=== PATIENT | female | born 1935 | race Caucasian/White ===

== ENCOUNTER → 2016-05-23 | Outpatient (CLI) | payer MEDICARE, BC ==
[2016-05-23 11:06] LABS: Anion Gap 12 mmol/L; Basophils # (A) 0.1 k/uL (0-0.2); Basophils % (A) 1 %; Blood Urea Nitrogen 23 mg/dL (7-17); C Reactive Protein <5.0 mg/L (<10.0); CH 31.7; CHCM 31.9; Calcium 9.8 mg/dL (8.4-10.2); Carbon Dioxide 28 mmol/L (22-30); Chloride 102 mmol/L (98-107); Eosinophils # (A) 0.1 k/uL (0-0.7); Eosinophils % (A) 2 %; Glucose 76 mg/dL (74-99); HCT 43.1 % (34.0-46.0); HGB 13.7 gm/dL (11.4-16.0); Luc # (Auto) 0.21; Luc % (Auto) 4; Lymphocytes # (A) 1.8 k/uL (1.0-4.8); Lymphocytes % (A) 32 %; MCH 31.6 pg (25.0-35.0); MCHC 31.7 g/dL (31.0-37.0); MCV 99.7 fL (80.0-100.0); Mean Platelet Volume 6.2; Monocytes # (A) 0.4 k/uL (0-1.0); Monocytes % (A) 8 %; Neutrophils # (A) 3.1 k/uL (1.3-7.7); Neutrophils % (A) 53 %; Non-African American GFR(MDRD) 33 (>60 ml/min/1.73 sqM); Potassium 4.2 mmol/L (3.5-5.1); RBC 4.32 m/uL (3.80-5.40); RDW 12.6 % (11.5-15.5); Sodium 142 mmol/L (137-145); WBC 5.7 k/uL (3.8-10.6); WBC (Perox) 5.43
[2016-05-23 14:24] LABS: Erythrocyte Sedimentation Rate 13 mm/hr (0-20)
== END ==
LOC: LABWHC1 10:16
PROVIDERS: ATTEND Internal Medicine Infectious Disease
DX: T84.54XA Infection and inflammatory reaction due to internal left knee prosthesis, initial encounter (principal)
CPT/HCPCS: 36415; 80048; 85025; 85652; 86140

== ENCOUNTER → 2016-06-18 | Outpatient (CLI) | payer MEDICARE, BC ==
[2016-06-18 16:29] LABS: Appearance,Urine Clear (Clear); Bilirubin,Urine Negative (Negative); Glucose,Urine (UA) Negative (Negative); Ketones,Urine Negative (Negative); Leukocyte Esterase,Urine Large (Negative); Nitrite,Urine Negative (Negative); PH, Urine 6.5 (5.0-8.0); Particle Count 3302; Protein,Urine Negative (Negative); RBC,Urine 1 /hpf (0-5); Specific Gravity,Urine 1.007 (1.001-1.035); Squamous Epithelial Cell,Urine <1 /hpf (0-4); UA Billing (MACRO vs. MICRO) MICRO; Urobilinogen,Urine <2.0 mg/dL (<2.0); WBC,Urine 26 /hpf (0-5)
[2016-06-18 16:31] LABS: Creatinine,Urine Random 54.1 mg/dL
[2016-06-18 16:39] LABS: CHCM 33.1; HCT 41.3 % (34.0-46.0); HDW 2.33; HGB 13.6 gm/dL (11.4-16.0); MCHC 32.9 g/dL (31.0-37.0); MCV 97.2 fL (80.0-100.0); Mean Platelet Volume 6.3; RBC 4.25 m/uL (3.80-5.40); RDW 12.5 % (11.5-15.5); WBC 5.7 k/uL (3.8-10.6)
== END | disposition home or self-care (01) ==
LOC: LABWHC1 15:39
PROVIDERS: ATTEND Nurse Practitioner Family
DX: N18.3 Chronic kidney disease, stage 3 (moderate) (principal); N39.0 Urinary tract infection, site not specified; R80.9 Proteinuria, unspecified; D64.9 Anemia, unspecified
CPT/HCPCS: 36415; 80048; 81001; 82570; 82728; 83540; 83550; 84156; 85027; 87086

== ENCOUNTER → 2016-07-03 | Outpatient (CLI) | payer MEDICARE, BC ==
[2016-07-03 16:22] LABS: Calcium 9.6 mg/dL (8.4-10.2); Potassium 3.9 mmol/L (3.5-5.1)
== END | disposition home or self-care (01) ==
LOC: LABWHC1 15:35
PROVIDERS: ATTEND Internal Medicine Nephrology
DX: N18.3 Chronic kidney disease, stage 3 (moderate) (principal); E55.9 Vitamin D deficiency, unspecified; E21.3 Hyperparathyroidism, unspecified
CPT/HCPCS: 36415; 80048; 82306; 83970

== ENCOUNTER → 2016-07-20 | Outpatient (CLI) | payer MEDICARE, BC ==
--- NOTE | 2016-07-20 13:23 | US ---
EXAMINATION TYPE: US kidneys/renal and bladder DATE OF EXAM: 07/20/2016 COMPARISON: NONE CLINICAL HISTORY: N18.3 CKD. EXAM MEASUREMENTS: Right Kidney: 9.1 x 4.6 x 4.5 cm Left Kidney: 9.1 x 4.7 x 4.2 cm The kidneys are poorly visualized. Right Kidney: mid parapelvic cyst measuring 1.2 x 1.6 x 1.0 cm, cortical thinning Left Kidney: cyst measuring 1.9 x 1.6 x 1.7, cortical thinning Bladder: situated low difficult to visualize, portions visualized appear wnl The kidneys are poorly visualized. There is no evidence of hydronephrosis. There is a parapelvic cyst on the right. There is a simple appearing cortical cyst on the left. IMPRESSION: Limited examination demonstrating findings as described above.
== END ==
LOC: RADUSWWP 12:40
PROVIDERS: ATTEND Internal Medicine Nephrology
DX: N28.1 Cyst of kidney, acquired (principal); N18.3 Chronic kidney disease, stage 3 (moderate)
CPT/HCPCS: 76770

== ENCOUNTER → 2016-08-13 | Outpatient (CLI) | payer MEDICARE, BC ==
[2016-08-13 14:35] LABS: Basophils % (A) 1 %; CH 30.9; CHCM 32.1; Eosinophils # (A) 0.1 k/uL (0-0.7); Eosinophils % (A) 2 %; HCT 40.1 % (34.0-46.0); HDW 2.15; HGB 13.5 gm/dL (11.4-16.0); Luc # (Auto) 0.21; Luc % (Auto) 4; Lymphocytes # (A) 1.7 k/uL (1.0-4.8); Lymphocytes % (A) 32 %; MCH 32.5 pg (25.0-35.0); MCHC 33.6 g/dL (31.0-37.0); MCV 96.7 fL (80.0-100.0); Mean Platelet Volume 6.6; Monocytes # (A) 0.3 k/uL (0-1.0); Monocytes % (A) 6 %; Neutrophils % (A) 56 %; RBC 4.15 m/uL (3.80-5.40); RDW 12.9 % (11.5-15.5); WBC 5.3 k/uL (3.8-10.6); WBC (Perox) 5.85
[2016-08-13 15:02] LABS: Calcium 9.8 mg/dL (8.4-10.2); Magnesium 2.2 mg/dL (1.6-2.3); Phosphorous 4.3 mg/dL (2.5-4.5); Potassium 4.6 mmol/L (3.5-5.1); Uric Acid 6.9 mg/dL (3.7-7.4)
[2016-08-13 15:42] LABS: Appearance,Urine Turbid (Clear); Bacteria,Urine Moderate /hpf; Bilirubin,Urine Negative (Negative); Glucose,Urine (UA) Negative (Negative); Ketones,Urine Negative (Negative); Leukocyte Esterase,Urine Large (Negative); Nitrite,Urine Negative (Negative); PH, Urine 6.5 (5.0-8.0); Particle Count 2882; Protein,Urine Trace (Negative); RBC,Urine 6 /hpf (0-5); Specific Gravity,Urine 1.016 (1.001-1.035); UA Billing (MACRO vs. MICRO) MICRO; Urobilinogen,Urine <2.0 mg/dL (<2.0); WBC,Urine >182 /hpf (0-5)
[2016-08-14 09:14] LABS: Total Bilirubin 0.6 mg/dL (0.2-1.3); Total Protein 6.9 g/dL (6.3-8.2)
[2016-08-14 10:01] LABS: Hemoglobin A1C 5.7 % (4.2-6.1)
[2016-08-14 16:45] LABS: Urine Creatinine 139.6 mg/dL
== END | disposition home or self-care (01) ==
LOC: LABWHC1 14:07
PROVIDERS: ATTEND Internal Medicine Nephrology
DX: N18.3 Chronic kidney disease, stage 3 (moderate) (principal); E11.9 Type 2 diabetes mellitus without complications; E78.5 Hyperlipidemia, unspecified
CPT/HCPCS: 36415; 80048; 80053; 80061; 81001; 82043; 82306; 82570; 82728; 83036; 83540; 83550; 83735; 83970; 84100; 84443; 84550; 85025

== ENCOUNTER 2016-09-12 11:27 | Emergency (ER) | payer MEDICARE, BC ==
[2016-09-12 11:49] VITALS: RESP 18
--- NOTE | 2016-09-12 12:39 | ED ---
General Adult HPI - General Chief complaint: Head Injury Stated complaint: headache following fall Time Seen by Provider: 09/12/16 12:32 Source: patient, RN notes reviewed Mode of arrival: ambulatory Limitations: no limitations - History of Present Illness Initial comments: 81-year-old female presents to the emergency department with a chief complaint of headache. Patient states that on Saturday she lost her balance after tripping over her hand bag and she hit her head on a cement. Patient states that at that time she had no pain or symptoms and she did not go in EMS to the hospital. Patient states she follow-up with her doctor was found have a broken right wrist. Patient states she continues to have these headaches a little bit of neck pain so she was concerned so she thought that she should be seen. Patient does state that she takes aspirin every day but denies any use of blood thinners. Patient denies any nausea vomiting fever or chills. Patient states she has been acting normally. Patient states she does not make sure everything was okay with her head she came in to be evaluated. Patient denies any recent fever, chills, shortness of breath, chest pain, back pain, abdominal pain, nausea vomiting, numbness or tingling, dysuria or hematuria, constipation or diarrhea, visual changes, or any other current symptoms. - Related Data Allergies Allergy/AdvReac Type Severity Reaction Status Date / Time ciprofloxacin [From Cipro] Allergy Rash/Hives Verified 09/12/16 11:50 nitrofurantoin Allergy Unknown Verified 09/12/16 11:50 Penicillins Allergy Rash/Hives Verified 09/12/16 11:50 latex AdvReac Rash/Hives Verified 09/12/16 11:50 Review of Systems ROS Statement: Those systems with pertinent positive or pertinent negative responses have been documented in the HPI. ROS Other: All systems not noted in ROS Statement are negative. Past Medical History Past Medical History: Diabetes Mellitus, GERD/Reflux History of Any Multi-Drug Resistant Organisms: Other MDRO Date of last positivie culture/infection: 2016 MDRO Source:: e-coli in knee Past Surgical History: Appendectomy, Back Surgery, Cholecystectomy, Hysterectomy Additional Past Surgical History / Comment(s): bilateral shoulder, bilateral carpal tunnel, knee replaced Smoking Status: Never smoker Past Alcohol Use History: None Reported Past Drug Use History: None Reported General Exam - General Exam Comments Initial Comments: General: The patient is awake and alert, in no distress, and does not appear acutely ill. Eye: Pupils are equal, round and reactive to light, extra-ocular movements are intact; there is normal conjunctiva bilaterally. No signs of icterus. Ears, nose, mouth and throat: There are moist mucous membranes and no oral lesions. Neck: The neck is supple, there is no tenderness. Cardiovascular: There is a regular rate and rhythm. No murmur, rub or gallop is appreciated. Respiratory: Lungs are clear to auscultation, respirations are non-labored, breath sounds are equal. No wheezes, stridor, rales, or rhonchi. Back: There is no tenderness to palpation in the midline. There is no obvious deformity. No rashes noted. Musculoskeletal: Right wrist is in a splint. Normal ROM, no tenderness, There is no pedal edema. There is no calf tenderness or swelling. Sensation intact. Pulses equal bilaterally 2+. Neurological: CN II-XII intact, There are no obvious motor or sensory deficits. Coordination appears grossly intact. Speech is normal. Skin: Skin is warm and dry and no rashes or lesions are noted. Psychiatric: Cooperative, appropriate mood & affect, normal judgment. Limitations: no limitations Course Vital Signs 09/12/16 11:42 Temperature 97.1 F L Pulse Rate 77 Respiratory 18 Rate Blood Pressure 144/65 O2 Sat by Pulse 97 Oximetry Medical Decision Making - Medical Decision Making 81-year-old female presents emergency room chief complaint of headache after fall. This time CT is reviewed and negative. We discussed the patient most likely having post concussion-like symptoms. We did discuss care of this we discussed follow-up with discussed return parameters all patient's questions. She stated that she understood and she is in agreement with this plan. This time she will be discharged home. - Radiology Data Radiology results: report reviewed, image reviewed Disposition Clinical Impression: Concussion without loss of consciousness Disposition: HOME SELF-CARE Condition: Stable Instructions: Concussion (ED) Additional Instructions: Please use medication as discussed. Please follow up with family doctor if symptoms have not improved over the next two days. Please return to the emergency room if your symptoms increase or worsen or for any other concerns. Referrals: Lilian Starks MD [Primary Care Provider] - 1-2 days Time of Disposition: 13:12
--- NOTE | 2016-09-12 13:05 | CT ---
EXAMINATION TYPE: CT brain vladimir faustin DATE OF EXAM: 09/12/2016 COMPARISON: NONE HISTORY: Patient complains of right side posterior headache and right side neck pain since fall. CT DLP: 1507 mGycm Automated exposure control for dose reduction was used. TECHNIQUE: CT scan of the head and cervical spine are performed without contrast. FINDINGS: BRAIN: There are generalized changes of sulcal prominence and ventriculomegaly, compatible with atrop hic change. There is diffuse periventricular white matter lucency, compatible with small vessel ische yary change. There is no focal lesion, mass effect or midline shift identified. I do not see evidence of intracranial blood. Visualized portions of the paranasal sinuses and mastoids are clear. No depressed skull fracture is s een. IMPRESSION: 1. NO ACUTE INTRACRANIAL ABNORMALITY. 2. ATROPHIC CHANGE. 3. CHRONIC WHITE MATTER ISCHEMIC CHANGE. CERVICAL SPINE: There are emphysematous changes throughout the visualized lungs. Prevertebral soft tissues are normal. There is a mild reversal of normal cervical lordosis. Alignment is normal. Atlantoaxial relationships are normal. There is disc space loss and hypertrophic spondylosis at C4-5, C5-6 and C6-7. There is u ncovertebral joint disease at these levels. There is mild, bilateral facet arthropathy at C3-4 and on the right at C4-5. No discal protrusion is seen. No fracture is identified. IMPRESSION: 1. NO ACUTE OSSEOUS LESION. 2. DEGENERATIVE CHANGE. 3. EMPHYSEMATOUS CHANGE WITHIN THE LUNGS.
[2016-09-12 13:21] VITALS: BP 125/65; PULSE 73; TEMP 98.7
== END 2016-09-12 13:21 | disposition home or self-care (01) ==
LOC: EC 11:27
DX: S06.0X0A Concussion without loss of consciousness, initial encounter (principal); Z88.0 Allergy status to penicillin; Z88.1 Allergy status to other antibiotic agents; Z88.8 Allergy status to other drugs, medicaments and biological substances; Z91.040 Latex allergy status; W01.198A Fall on same level from slipping, tripping and stumbling with subsequent striking against other object, initial encounter
CPT/HCPCS: 70450; 72125; 99283

== ENCOUNTER → 2016-11-29 | Outpatient (CLI) | payer MEDICARE, BC ==
[2016-11-29 15:11] LABS: Basophils % (A) 1 %; CH 33.2; CHCM 32.5; Eosinophils # (A) 0.1 k/uL (0-0.7); Eosinophils % (A) 1 %; HCT 43.6 % (34.0-46.0); HDW 2.17; HGB 13.8 gm/dL (11.4-16.0); Luc # (Auto) 0.12; Luc % (Auto) 3; Lymphocytes # (A) 1.2 k/uL (1.0-4.8); Lymphocytes % (A) 28 %; MCH 32.4 pg (25.0-35.0); MCHC 31.6 g/dL (31.0-37.0); MCV 102.7 fL (80.0-100.0); Macrocytosis Slight; Mean Platelet Volume 7.1; Monocytes # (A) 0.3 k/uL (0-1.0); Monocytes % (A) 8 %; Neutrophils # (A) 2.5 k/uL (1.3-7.7); Neutrophils % (A) 60 %; RBC 4.25 m/uL (3.80-5.40); RDW 14.5 % (11.5-15.5); WBC 4.3 k/uL (3.8-10.6); WBC (Perox) 3.81
[2016-11-29 16:29] LABS: Erythrocyte Sedimentation Rate 9 mm/hr (0-20)
== END | disposition home or self-care (01) ==
LOC: LABWHC1 14:44
PROVIDERS: ATTEND Internal Medicine Infectious Disease
DX: T84.54XD Infection and inflammatory reaction due to internal left knee prosthesis, subsequent encounter (principal)
CPT/HCPCS: 36415; 85025; 85652; 86140

== ENCOUNTER 2016-11-30 23:31 | Emergency (ER) | payer MEDICARE, BC ==
[2016-11-30 23:43] VITALS: TEMP 98.5
[2016-12-01] MEDS ORDERED: SODIUM CHLORIDE 0.9% 1,000 ML IV STA (00:04)
[2016-12-01] MEDS ORDERED: IPRATROPIUM-ALBUTEROL 3 ML NEB INHALATION STA (00:04)
[2016-12-01 00:17] LABS: Basophils % (A) 1 %; CHCM 33.3; Eosinophils # (A) 0.1 k/uL (0-0.7); Eosinophils % (A) 3 %; HCT 44.7 % (34.0-46.0); HDW 2.24; HGB 14.2 gm/dL (11.4-16.0); Luc # (Auto) 0.13; Luc % (Auto) 3; Lymphocytes # (A) 1.4 k/uL (1.0-4.8); Lymphocytes % (A) 28 %; MCH 32.6 pg (25.0-35.0); MCHC 31.8 g/dL (31.0-37.0); MCV 102.5 fL (80.0-100.0); Macrocytosis Slight; Mean Platelet Volume 6.8; Monocytes # (A) 0.4 k/uL (0-1.0); Monocytes % (A) 8 %; Neutrophils # (A) 2.9 k/uL (1.3-7.7); Neutrophils % (A) 58 %; RBC 4.37 m/uL (3.80-5.40); RDW 14.8 % (11.5-15.5); WBC (Perox) 4.65
[2016-12-01 00:24] LABS: Calcium 9.3 mg/dL (8.4-10.2); Potassium 4.3 mmol/L (3.5-5.1); Total Bilirubin 0.3 mg/dL (0.2-1.3); Total Protein 6.7 g/dL (6.3-8.2)
--- NOTE | 2016-12-01 00:24 | ED ---
General Adult HPI - General Chief complaint: Upper Respiratory Infection Stated complaint: cough Time Seen by Provider: 12/01/16 00:03 Source: patient, RN notes reviewed, old records reviewed Mode of arrival: ambulatory Limitations: no limitations - History of Present Illness Initial comments: This is a 81 female to the ED co cough and SOB. Symptoms times 3 days with worsening of symptoms. Patient has ho diabetes and multiple surgeries. Patient has no fever. No chest pain, no travel history and no recent hospitilizations. - Related Data Previous Rx's Medication Instructions Recorded Albuterol Sulfate [Proair Hfa] 1 - 2 puff INHALATION Q4H PRN #1 12/01/16 inhaler Azithromycin [Zithromax Z-pack] 0 mg PO DIRECTED #1 pack 12/01/16 Benzonatate [Tessalon Perles] 100 mg PO TID PRN #30 capsule 12/01/16 Allergies Allergy/AdvReac Type Severity Reaction Status Date / Time ciprofloxacin [From Cipro] Allergy Rash/Hives Verified 11/30/16 23:43 nitrofurantoin Allergy Unknown Verified 11/30/16 23:43 Penicillins Allergy Rash/Hives Verified 11/30/16 23:43 latex AdvReac Rash/Hives Verified 11/30/16 23:43 Review of Systems ROS Statement: Those systems with pertinent positive or pertinent negative responses have been documented in the HPI. ROS Other: All systems not noted in ROS Statement are negative. Past Medical History Past Medical History: Diabetes Mellitus, GERD/Reflux History of Any Multi-Drug Resistant Organisms: Other MDRO Date of last positivie culture/infection: 2016 MDRO Source:: e-coli in knee Past Surgical History: Appendectomy, Back Surgery, Cholecystectomy, Hysterectomy Additional Past Surgical History / Comment(s): bilateral shoulder, bilateral carpal tunnel, knee replaced Past Psychological History: No Psychological Hx Reported Smoking Status: Never smoker Past Alcohol Use History: None Reported Past Drug Use History: None Reported General Exam Limitations: no limitations General appearance: alert, in no apparent distress Head exam: Present: atraumatic, normocephalic, normal inspection Eye exam: Present: normal appearance, PERRL, EOMI. Absent: scleral icterus, conjunctival injection, periorbital swelling ENT exam: Present: normal exam, mucous membranes moist Neck exam: Present: normal inspection. Absent: tenderness, meningismus, lymphadenopathy Respiratory exam: Present: normal lung sounds bilaterally. Absent: respiratory distress, wheezes, rales, rhonchi, stridor Cardiovascular Exam: Present: regular rate, normal rhythm, normal heart sounds. Absent: systolic murmur, diastolic murmur, rubs, gallop, clicks GI/Abdominal exam: Present: soft, normal bowel sounds. Absent: distended, tenderness, guarding, rebound, rigid Extremities exam: Present: normal inspection, full ROM, normal capillary refill. Absent: tenderness, pedal edema, joint swelling, calf tenderness Back exam: Present: normal inspection Neurological exam: Present: alert, oriented X3, CN II-XII intact Psychiatric exam: Present: normal affect, normal mood Skin exam: Present: warm, dry, intact, normal color. Absent: rash Course Vital Signs 11/30/16 12/01/16 12/01/16 23:41 00:12 00:47 Temperature 98.5 F Pulse Rate 78 66 Respiratory 20 18 18 Rate Blood Pressure 136/66 119/58 O2 Sat by Pulse 97 96 Oximetry 12/01/16 12/01/16 12/01/16 01:01 01:19 02:12 Temperature Pulse Rate 65 66 Respiratory 20 Rate Blood Pressure O2 Sat by Pulse Oximetry - Reevaluation(s) Reevaluation #1: 12/01/16 00:32 patient breathing is improved, still w cough Reevaluation #2: 12/01/16 01:57 patient asking to be discharged home EKG Findings - EKG Comments: EKG Findings:: EKG shows NSR 67 NV 154 QRS 136 QTc 433 Medical Decision Making - Medical Decision Making 81 female in the ER for evaluation of shortness of cough or congestion, symptoms of upper respiratory infection. Patient at this point she feels better and would like to be discharged home, refusing to stay in the hospital. X-rays negative for pneumonia. - Lab Data Result diagrams: 12/01/16 00:00 12/01/16 00:00 Lab Results 12/01/16 12/01/16 12/01/16 Range/Units 00:00 00:00 00:00 WBC 5.0 (3.8-10.6) k/uL RBC 4.37 (3.80-5.40) m/uL Hgb 14.2 (11.4-16.0) gm/dL Hct 44.7 (34.0-46.0) % MCV 102.5 H (80.0-100.0) fL MCH 32.6 (25.0-35.0) pg MCHC 31.8 (31.0-37.0) g/dL RDW 14.8 (11.5-15.5) % Plt Count 183 (150-450) k/uL Neutrophils % 58 % Lymphocytes % 28 % Monocytes % 8 % Eosinophils % 3 % Basophils % 1 % Neutrophils # 2.9 (1.3-7.7) k/uL Lymphocytes # 1.4 (1.0-4.8) k/uL Monocytes # 0.4 (0-1.0) k/uL Eosinophils # 0.1 (0-0.7) k/uL Basophils # 0.0 (0-0.2) k/uL Macrocytosis Slight PT (9.0-12.0) sec INR (<1.2) APTT (22.0-30.0) sec D-Dimer (<0.60) mg/L FEU Sodium 137 (137-145) mmol/L Potassium 4.3 (3.5-5.1) mmol/L Chloride 104 (98-107) mmol/L Carbon Dioxide 22 (22-30) mmol/L Anion Gap 11 mmol/L BUN 20 H (7-17) mg/dL Creatinine 1.30 H (0.52-1.04) mg/dL Est GFR (MDRD) Af Amer 48 (>60 ml/min/1.73 sqM) Est GFR (MDRD) Non-Af 40 (>60 ml/min/1.73 sqM) Glucose 89 (74-99) mg/dL Calcium 9.3 (8.4-10.2) mg/dL Magnesium 2.0 (1.6-2.3) mg/dL Total Bilirubin 0.3 (0.2-1.3) mg/dL AST 27 (14-36) U/L ALT 45 (9-52) U/L Alkaline Phosphatase 78 (38-126) U/L Total Creatine Kinase 37 (30-135) U/L CK-MB (CK-2) 0.4 (0.0-2.4) ng/mL CK-MB (CK-2) Rel Index 1.1 Troponin I <0.012 (0.000-0.034) ng/mL NT-Pro-B Natriuret Pep pg/mL Total Protein 6.7 (6.3-8.2) g/dL Albumin 4.0 (3.5-5.0) g/dL 12/01/16 12/01/16 12/01/16 Range/Units 00:00 00:00 00:00 WBC (3.8-10.6) k/uL RBC (3.80-5.40) m/uL Hgb (11.4-16.0) gm/dL Hct (34.0-46.0) % MCV (80.0-100.0) fL MCH (25.0-35.0) pg MCHC (31.0-37.0) g/dL RDW (11.5-15.5) % Plt Count (150-450) k/uL Neutrophils % % Lymphocytes % % Monocytes % % Eosinophils % % Basophils % % Neutrophils # (1.3-7.7) k/uL Lymphocytes # (1.0-4.8) k/uL Monocytes # (0-1.0) k/uL Eosinophils # (0-0.7) k/uL Basophils # (0-0.2) k/uL Macrocytosis PT 10.5 (9.0-12.0) sec INR 1.0 (<1.2) APTT 25.6 (22.0-30.0) sec D-Dimer 0.91 H (<0.60) mg/L FEU Sodium (137-145) mmol/L Potassium (3.5-5.1) mmol/L Chloride (98-107) mmol/L Carbon Dioxide (22-30) mmol/L Anion Gap mmol/L BUN (7-17) mg/dL Creatinine (0.52-1.04) mg/dL Est GFR (MDRD) Af Amer (>60 ml/min/1.73 sqM) Est GFR (MDRD) Non-Af (>60 ml/min/1.73 sqM) Glucose (74-99) mg/dL Calcium (8.4-10.2) mg/dL Magnesium (1.6-2.3) mg/dL Total Bilirubin (0.2-1.3) mg/dL AST (14-36) U/L ALT (9-52) U/L Alkaline Phosphatase (38-126) U/L Total Creatine Kinase (30-135) U/L CK-MB (CK-2) (0.0-2.4) ng/mL CK-MB (CK-2) Rel Index Troponin I (0.000-0.034) ng/mL NT-Pro-B Natriuret Pep 67 pg/mL Total Protein (6.3-8.2) g/dL Albumin (3.5-5.0) g/dL - Radiology Data Radiology results: report reviewed (Chest x-ray is negative for acute disease), image reviewed Disposition Clinical Impression: Upper respiratory infection Disposition: HOME SELF-CARE Condition: Good Instructions: Upper Respiratory Infection (ED) Prescriptions: Albuterol Sulfate [Proair Hfa] 1 - 2 puff INHALATION Q4H PRN #1 inhaler PRN Reason: Shortness Of Breath Azithromycin [Zithromax Z-pack] 0 mg PO DIRECTED #1 pack Benzonatate [Tessalon Perles] 100 mg PO TID PRN #30 capsule PRN Reason: Cough Referrals: Lilian Starks MD [Primary Care Provider] - 1-2 days
[2016-12-01 00:30] LABS: Partial Thromboplastin Time 25.6 sec (22.0-30.0); Prothrombin Time 10.5 sec (9.0-12.0)
[2016-12-01 00:35] LABS: Creatine Kinase 37 U/L (30-135)
--- NOTE | 2016-12-01 00:43 | XR ---
EXAMINATION TYPE: XR chest 2V DATE OF EXAM: 12/01/2016 COMPARISON: NONE HISTORY: Difficulty breathing TECHNIQUE: Frontal and lateral views of the chest are obtained. FINDINGS: There is small linear density at the right lung base. There is no heart failure. There are no hilar masses. There is linear density in the right middle lobe. Bones are osteopenic. There is no pleural effusion. Thoracic aorta is atheromatous. IMPRESSION: Mild atelectasis at the right lung base. No heart failure.
[2016-12-01 00:49] LABS: Creatine Kinase MB 0.4 ng/mL (0.0-2.4); Troponin I <0.012 ng/mL (0.000-0.034)
[2016-12-01 00:50] VITALS: BP 119/58
[2016-12-01 01:19] VITALS: PULSE 66
[2016-12-01] MEDS ORDERED: RX INFO: IV CONTRAST WAS GIVEN 1 EACH MISC MISCELLANE PRN (01:54)
[2016-12-01 02:13] VITALS: RESP 20
== END 2016-12-01 02:12 | disposition home or self-care (01) ==
LOC: EC 23:31
DX: J06.9 Acute upper respiratory infection, unspecified (principal); E11.9 Type 2 diabetes mellitus without complications; K21.9 Gastro-esophageal reflux disease without esophagitis; Z88.1 Allergy status to other antibiotic agents; Z88.0 Allergy status to penicillin; Z88.8 Allergy status to other drugs, medicaments and biological substances; Z91.040 Latex allergy status
CPT/HCPCS: 36415; 71020; 80053; 82550; 82553; 83735; 83880; 84484; 85025; 85379; 85610; 85730; 93005; 94640; 96360; 96361; 99284

== ENCOUNTER → 2017-02-22 | Outpatient (CLI) | payer MEDICARE, BC ==
[2017-02-22 11:11] LABS: Basophils % (A) 1 %; Eosinophils # (A) 0.1 k/uL (0-0.7); Eosinophils % (A) 2 %; HCT 46.3 % (34.0-46.0); HGB 14.8 gm/dL (11.4-16.0); Lymphocytes # (A) 1.9 k/uL (1.0-4.8); Lymphocytes % (A) 33 %; MCH 31.7 pg (25.0-35.0); MCV 99.3 fL (80.0-100.0); Monocytes # (A) 0.4 k/uL (0-1.0); Monocytes % (A) 7 %; Neutrophils # (A) 3.2 k/uL (1.3-7.7); Neutrophils % (A) 55 %; Platelet Count 221 k/uL (150-450); RBC 4.67 m/uL (3.80-5.40); RDW 13.3 % (11.5-15.5); WBC 5.8 k/uL (3.8-10.6)
[2017-02-22 11:28] LABS: Appearance,Urine Clear (Clear); Bacteria,Urine Occasional /hpf; Bilirubin,Urine Negative (Negative); Blood,Urine Negative (Negative); Color,Urine Yellow; Glucose,Urine (UA) Negative (Negative); Hyaline Casts,Urine 3 /lpf (0-2); Ketones,Urine Negative (Negative); Leukocyte Esterase,Urine Moderate (Negative); Mucus,Urine Rare /hpf; Nitrite,Urine Negative (Negative); PH, Urine 6.5 (5.0-8.0); Protein,Urine Negative (Negative); RBC,Urine 4 /hpf (0-5); Specific Gravity,Urine 1.008 (1.001-1.035); Squamous Epithelial Cell,Urine <1 /hpf (0-4); Urobilinogen,Urine <2.0 mg/dL (<2.0); WBC,Urine 74 /hpf (0-5)
[2017-02-22 11:44] LABS: Albumin 4.6 g/dL (3.5-5.0); Calcium 10.1 mg/dL (8.4-10.2); Magnesium 1.9 mg/dL (1.6-2.3); Phosphorus 4.2 mg/dL (2.5-4.5); Potassium 4.3 mmol/L (3.5-5.1); Total Bilirubin 0.7 mg/dL (0.2-1.3); Total Protein 7.4 g/dL (6.3-8.2); Uric Acid 7.1 mg/dL (3.7-7.4)
[2017-02-22 15:57] LABS: Iron Saturation 28.88 (12.00-45.00)
[2017-02-22 16:07] LABS: Vitamin D 25 Hydroxy 28.2 ng/mL (30.0-100.0)
[2017-02-22 16:23] LABS: Parathyroid Hormone Intact 50.8 pg/mL (14.0-72.0)
[2017-02-22 18:53] LABS: Hemoglobin A1C 5.8 % (4.0-6.0)
== END | disposition home or self-care (01) ==
LOC: LABWHC1 09:41
PROVIDERS: ATTEND Nurse Practitioner Family
DX: E78.5 Hyperlipidemia, unspecified (principal); E11.9 Type 2 diabetes mellitus without complications; D63.1 Anemia in chronic kidney disease; N18.3 Chronic kidney disease, stage 3 (moderate); D50.9 Iron deficiency anemia, unspecified; E55.9 Vitamin D deficiency, unspecified; N25.81 Secondary hyperparathyroidism of renal origin; M10.9 Gout, unspecified; N39.0 Urinary tract infection, site not specified
CPT/HCPCS: 36415; 80053; 80061; 81001; 82043; 82306; 82570; 82728; 83036; 83540; 83550; 83735; 83970; 84100; 84550; 85025

== ENCOUNTER → 2017-03-05 | Outpatient (CLI) | payer MEDICARE, BC ==
[2017-03-05 10:47] LABS: Calcium 9.5 mg/dL (8.4-10.2); Potassium 4.9 mmol/L (3.5-5.1)
== END | disposition home or self-care (01) ==
LOC: LABWHC1 09:57
PROVIDERS: ATTEND Nurse Practitioner Family
DX: N18.3 Chronic kidney disease, stage 3 (moderate) (principal)
CPT/HCPCS: 36415; 80048

== ENCOUNTER 2017-03-16 14:18 | Emergency (ER) | payer MEDICARE, BC ==
[2017-03-16 14:32] VITALS: RESP 18
[2017-03-16] MEDS ORDERED: SODIUM CHLORIDE 0.9% 1,000 ML IV STA (17:07)
[2017-03-16] MEDS ORDERED: MECLIZINE 12.5 MG TAB PO STA (17:25)
[2017-03-16] MEDS ORDERED: ONDANSETRON 4 MG/2 ML VIAL IVP STA (17:25)
--- NOTE | 2017-03-16 17:26 | ED ---
General Adult HPI - General Chief complaint: Headache Stated complaint: GUTHRIE Time Seen by Provider: 03/16/17 16:34 Source: patient, RN notes reviewed, old records reviewed Mode of arrival: ambulatory Limitations: no limitations - History of Present Illness Initial comments: This is a 81-year-old female to the ER for evaluation today. Patient evaluation to vertigo type dizziness not feeling well. Headache. History of vertigo. Also has recent diagnosis of urinary tract infection, patient also receives not taking medications for diabetes and congestion of her family doctor patient's blood sugars have been running a little high. She denies fever denies chest pain or shortness of breath. - Related Data Home Medications Medication Instructions Recorded Confirmed Aspirin 81 mg PO HS 03/16/17 03/16/17 Biotin 5 mg PO BID@0900,1800 03/16/17 03/16/17 Glucosamine/Chondr Paulino A Sod [Osteo 1 tab PO DAILY 03/16/17 03/16/17 Bi-Flex Caplet] Magnesium Chloride [Mag64] 64 mg PO BID@0900,1800 03/16/17 03/16/17 Nitrofurantoin Monohyd/M-Cryst 100 mg PO Q12HR 03/16/17 03/16/17 [Macrobid] Ranitidine HCl [Zantac] 150 mg PO BID@0900,1800 03/16/17 03/16/17 Simvastatin [Zocor] 20 mg PO HS 03/16/17 03/16/17 Sulfamethox-Tmp 400-80Mg [Bactrim 1 tab PO Q12HR 03/16/17 03/16/17 SS 400-80 mg] Previous Rx's Medication Instructions Recorded Clarithromycin [Biaxin] 500 mg PO Q12HR #14 tablet 03/16/17 Meclizine [Antivert] 25 mg PO TID #30 tab 03/16/17 Ondansetron [Zofran] 4 mg PO Q8HR PRN #30 tab 03/16/17 Allergies Allergy/AdvReac Type Severity Reaction Status Date / Time ciprofloxacin [From Cipro] Allergy Rash/Hives Verified 03/16/17 17:08 nitrofurantoin Allergy Unknown Verified 03/16/17 17:08 Penicillins Allergy Rash/Hives Verified 03/16/17 17:08 latex AdvReac Rash/Hives Verified 01/27/18 17:08 Review of Systems ROS Statement: Those systems with pertinent positive or pertinent negative responses have been documented in the HPI. ROS Other: All systems not noted in ROS Statement are negative. Past Medical History Past Medical History: Diabetes Mellitus, GERD/Reflux History of Any Multi-Drug Resistant Organisms: Other MDRO Date of last positivie culture/infection: 2016 MDRO Source:: e-coli in knee Past Surgical History: Appendectomy, Back Surgery, Cholecystectomy, Hysterectomy Additional Past Surgical History / Comment(s): bilateral shoulder, bilateral carpal tunnel, knee replaced Past Psychological History: No Psychological Hx Reported Smoking Status: Never smoker Past Alcohol Use History: None Reported Past Drug Use History: None Reported General Exam Limitations: no limitations General appearance: alert, in no apparent distress Head exam: Present: atraumatic, normocephalic, normal inspection Eye exam: Present: normal appearance, PERRL, EOMI. Absent: scleral icterus, conjunctival injection, nystagmus, periorbital swelling ENT exam: Present: normal exam, mucous membranes moist Neck exam: Present: normal inspection. Absent: tenderness, meningismus, lymphadenopathy Respiratory exam: Present: normal lung sounds bilaterally. Absent: respiratory distress, wheezes, rales, rhonchi, stridor Cardiovascular Exam: Present: regular rate, normal rhythm, normal heart sounds. Absent: systolic murmur, diastolic murmur, rubs, gallop, clicks GI/Abdominal exam: Present: soft, normal bowel sounds. Absent: distended, tenderness, guarding, rebound, rigid Extremities exam: Present: normal inspection, full ROM, normal capillary refill. Absent: tenderness, pedal edema, joint swelling, calf tenderness Back exam: Present: normal inspection Neurological exam: Present: alert, oriented X3, CN II-XII intact Psychiatric exam: Present: normal affect, normal mood Skin exam: Present: warm, dry, intact, normal color. Absent: rash Course Vital Signs 03/16/17 03/16/17 03/16/17 14:29 19:09 20:48 Temperature 99.4 F 100.3 F H Pulse Rate 94 80 90 Respiratory 18 18 18 Rate Blood Pressure 142/65 152/67 151/61 O2 Sat by Pulse 96 98 96 Oximetry - Reevaluation(s) Reevaluation #1: 03/16/17 20:55 Patient does have significant improvement symptoms of vertigo, that has resolved Reevaluation #2: 03/16/17 20:56 Spoke with ENT regarding incidental finding of mastoiditis, no signs of mastoiditis and clinical exam. Reevaluation #3: 03/16/17 20:57 Patient has been able to ambulate without difficulty Medical Decision Making - Medical Decision Making 81 female DEL with vertiginous symptoms with multiple other complaints likely lead reaction. Urinary tract infection that has resolved at this point patient has otitis likely vertigo related to that we'll treat with antibiotics, patient refusing any all medications including fever control - Lab Data Result diagrams: 03/16/17 17:16 03/16/17 17:16 Lab Results 03/16/17 03/16/17 03/16/17 Range/Units 17:16 17:16 17:16 WBC 12.9 H (3.8-10.6) k/uL RBC 4.15 (3.80-5.40) m/uL Hgb 13.2 (11.4-16.0) gm/dL Hct 40.4 (34.0-46.0) % MCV 97.3 (80.0-100.0) fL MCH 31.8 (25.0-35.0) pg MCHC 32.7 (31.0-37.0) g/dL RDW 13.1 (11.5-15.5) % Plt Count 184 (150-450) k/uL Neutrophils % 85 % Lymphocytes % 8 % Monocytes % 5 % Eosinophils % 1 % Basophils % 0 % Neutrophils # 10.9 H (1.3-7.7) k/uL Lymphocytes # 1.1 (1.0-4.8) k/uL Monocytes # 0.6 (0-1.0) k/uL Eosinophils # 0.2 (0-0.7) k/uL Basophils # 0.0 (0-0.2) k/uL Sodium 136 L (137-145) mmol/L Potassium 4.6 (3.5-5.1) mmol/L Chloride 102 (98-107) mmol/L Carbon Dioxide 23 (22-30) mmol/L Anion Gap 11 mmol/L BUN 15 (7-17) mg/dL Creatinine 1.30 H (0.52-1.04) mg/dL Est GFR (MDRD) Af Amer 48 (>60 ml/min/1.73 sqM) Est GFR (MDRD) Non-Af 40 (>60 ml/min/1.73 sqM) Glucose 160 H (74-99) mg/dL Calcium 9.5 (8.4-10.2) mg/dL Phosphorus 3.3 (2.5-4.5) mg/dL Magnesium 1.9 (1.6-2.3) mg/dL Total Bilirubin 0.9 (0.2-1.3) mg/dL AST 27 (14-36) U/L ALT 26 (9-52) U/L Alkaline Phosphatase 61 (38-126) U/L Total Creatine Kinase 101 (30-135) U/L CK-MB (CK-2) 0.3 (0.0-2.4) ng/mL CK-MB (CK-2) Rel Index 0.3 Troponin I <0.012 (0.000-0.034) ng/mL Total Protein 6.5 (6.3-8.2) g/dL Albumin 3.8 (3.5-5.0) g/dL Urine Color Urine Appearance (Clear) Urine pH (5.0-8.0) Ur Specific Irving (1.001-1.035) Urine Protein (Negative) Urine Glucose (UA) (Negative) Urine Ketones (Negative) Urine Blood (Negative) Urine Nitrite (Negative) Urine Bilirubin (Negative) Urine Urobilinogen (<2.0) mg/dL Ur Leukocyte Esterase (Negative) Urine WBC (0-5) /hpf Urine Mucus (None) /hpf 03/16/17 Range/Units 19:54 WBC (3.8-10.6) k/uL RBC (3.80-5.40) m/uL Hgb (11.4-16.0) gm/dL Hct (34.0-46.0) % MCV (80.0-100.0) fL MCH (25.0-35.0) pg MCHC (31.0-37.0) g/dL RDW (11.5-15.5) % Plt Count (150-450) k/uL Neutrophils % % Lymphocytes % % Monocytes % % Eosinophils % % Basophils % % Neutrophils # (1.3-7.7) k/uL Lymphocytes # (1.0-4.8) k/uL Monocytes # (0-1.0) k/uL Eosinophils # (0-0.7) k/uL Basophils # (0-0.2) k/uL Sodium (137-145) mmol/L Potassium (3.5-5.1) mmol/L Chloride (98-107) mmol/L Carbon Dioxide (22-30) mmol/L Anion Gap mmol/L BUN (7-17) mg/dL Creatinine (0.52-1.04) mg/dL Est GFR (MDRD) Af Amer (>60 ml/min/1.73 sqM) Est GFR (MDRD) Non-Af (>60 ml/min/1.73 sqM) Glucose (74-99) mg/dL Calcium (8.4-10.2) mg/dL Phosphorus (2.5-4.5) mg/dL Magnesium (1.6-2.3) mg/dL Total Bilirubin (0.2-1.3) mg/dL AST (14-36) U/L ALT (9-52) U/L Alkaline Phosphatase (38-126) U/L Total Creatine Kinase (30-135) U/L CK-MB (CK-2) (0.0-2.4) ng/mL CK-MB (CK-2) Rel Index Troponin I (0.000-0.034) ng/mL Total Protein (6.3-8.2) g/dL Albumin (3.5-5.0) g/dL Urine Color Yellow Urine Appearance Clear (Clear) Urine pH 6.5 (5.0-8.0) Ur Specific Irving 1.004 (1.001-1.035) Urine Protein Negative (Negative) Urine Glucose (UA) Negative (Negative) Urine Ketones Trace H (Negative) Urine Blood Negative (Negative) Urine Nitrite Negative (Negative) Urine Bilirubin Negative (Negative) Urine Urobilinogen <2.0 (<2.0) mg/dL Ur Leukocyte Esterase Trace H (Negative) Urine WBC 6 H (0-5) /hpf Urine Mucus Rare H (None) /hpf - Radiology Data Radiology results: report reviewed (CT brain positive for some fluid in left mastoid), image reviewed Disposition Clinical Impression: Headache, Vertigo Disposition: HOME SELF-CARE Condition: Good Instructions: Vertigo (ED), Acute Headache (ED) Prescriptions: Clarithromycin [Biaxin] 500 mg PO Q12HR #14 tablet Meclizine [Antivert] 25 mg PO TID #30 tab Ondansetron [Zofran] 4 mg PO Q8HR PRN #30 tab PRN Reason: Nausea Referrals: Lilian Starks MD [Primary Care Provider] - 1-2 days
[2017-03-16 18:05] LABS: Basophils % (A) 0 %; Eosinophils # (A) 0.2 k/uL (0-0.7); Eosinophils % (A) 1 %; HCT 40.4 % (34.0-46.0); HGB 13.2 gm/dL (11.4-16.0); Lymphocytes # (A) 1.1 k/uL (1.0-4.8); Lymphocytes % (A) 8 %; MCH 31.8 pg (25.0-35.0); MCHC 32.7 g/dL (31.0-37.0); MCV 97.3 fL (80.0-100.0); Mean Platelet Volume 7.3; Monocytes # (A) 0.6 k/uL (0-1.0); Monocytes % (A) 5 %; Neutrophils # (A) 10.9 k/uL (1.3-7.7); Neutrophils % (A) 85 %; Platelet Count 184 k/uL (150-450); RBC 4.15 m/uL (3.80-5.40); RDW 13.1 % (11.5-15.5); WBC 12.9 k/uL (3.8-10.6)
[2017-03-16 18:24] LABS: Albumin 3.8 g/dL (3.5-5.0); Calcium 9.5 mg/dL (8.4-10.2); Magnesium 1.9 mg/dL (1.6-2.3); Phosphorus 3.3 mg/dL (2.5-4.5); Potassium 4.6 mmol/L (3.5-5.1); Total Bilirubin 0.9 mg/dL (0.2-1.3); Total Protein 6.5 g/dL (6.3-8.2)
--- NOTE | 2017-03-16 18:31 | CT ---
EXAMINATION TYPE: CT brain wo con DATE OF EXAM: 03/16/2017 HISTORY: Headache and weakness. CT DLP: 1017.6 mGycm. Automated Exposure Control for Dose Reduction was Utilized. TECHNIQUE: CT scan of the head is performed without contrast. COMPARISON: CT brain September 12, 2016. FINDINGS: There is no acute intracranial hemorrhage or midline shift identified. There is diffuse v entricular and sulcal prominence consistent with diffuse age-related cerebral atrophy. There is low- attenuation in the periventricular white matter consistent with chronic small vessel ischemic change. The globes are intact and the visualized sinuses are clear. There is new opacification left masto id air cells. IMPRESSION: No acute intracranial hemorrhage or midline shift. There is mild diffuse age-related ce rebral atrophy and chronic small vessel ischemic change redemonstrated without significant interval c delmar. New left-sided mastoid opacification raises concern for a left-sided mastoiditis, correlate cl inically.
[2017-03-16 18:39] LABS: Creatine Kinase 101 U/L (30-135)
[2017-03-16 18:52] LABS: Creatine Kinase MB 0.3 ng/mL (0.0-2.4); Troponin I <0.012 ng/mL (0.000-0.034)
[2017-03-16 19:10] VITALS: TEMP 100.3
[2017-03-16 20:04] LABS: Appearance,Urine Clear (Clear); Bilirubin,Urine Negative (Negative); Blood,Urine Negative (Negative); Color,Urine Yellow; Glucose,Urine (UA) Negative (Negative); Ketones,Urine Trace (Negative); Leukocyte Esterase,Urine Trace (Negative); Mucus,Urine Rare /hpf; Nitrite,Urine Negative (Negative); PH, Urine 6.5 (5.0-8.0); Protein,Urine Negative (Negative); Specific Gravity,Urine 1.004 (1.001-1.035); Urobilinogen,Urine <2.0 mg/dL (<2.0); WBC,Urine 6 /hpf (0-5)
[2017-03-16] MEDS ORDERED: IBUPROFEN 600 MG TAB PO STA (20:10)
[2017-03-16] MEDS ORDERED: ACETAMINOPHEN TAB 500 MG TAB PO STA (20:10)
[2017-03-16] MEDS ORDERED: CLARITHROMYCIN 500 MG TAB PO STA (20:11)
[2017-03-16] MEDS ORDERED: CLARITHROMYCIN PO STA (20:19)
[2017-03-16 20:52] VITALS: BP 151/61; PULSE 90
== END 2017-03-16 21:33 | disposition home or self-care (01) ==
LOC: EC 14:18
DX: R51 Headache (principal); R42 Dizziness and giddiness; E11.9 Type 2 diabetes mellitus without complications; K21.9 Gastro-esophageal reflux disease without esophagitis; Z79.82 Long term (current) use of aspirin; Z79.84 Long term (current) use of oral hypoglycemic drugs; Z79.899 Other long term (current) drug therapy; Z88.1 Allergy status to other antibiotic agents; Z88.0 Allergy status to penicillin; Z91.040 Latex allergy status; Z53.29 Procedure and treatment not carried out because of patient's decision for other reasons
CPT/HCPCS: 36415; 80053; 82550; 82553; 83735; 84100; 84484; 85025; 81001; 87086; 87502; 70450; 99284; 96374; 96361; J2405

== ENCOUNTER → 2017-05-22 | Outpatient (CLI) | payer MEDICARE, BC ==
[2017-05-22 10:07] LABS: Basophils % (A) 0 %; Eosinophils # (A) 0.2 k/uL (0-0.7); Eosinophils % (A) 3 %; HCT 39.6 % (34.0-46.0); HGB 12.6 gm/dL (11.4-16.0); Lymphocytes # (A) 1.7 k/uL (1.0-4.8); Lymphocytes % (A) 30 %; MCH 30.6 pg (25.0-35.0); MCHC 31.9 g/dL (31.0-37.0); MCV 95.9 fL (80.0-100.0); Mean Platelet Volume 7.1; Monocytes # (A) 0.4 k/uL (0-1.0); Monocytes % (A) 7 %; Neutrophils # (A) 3.2 k/uL (1.3-7.7); Neutrophils % (A) 57 %; Platelet Count 207 k/uL (150-450); RBC 4.14 m/uL (3.80-5.40); RDW 13.1 % (11.5-15.5); WBC 5.6 k/uL (3.8-10.6)
[2017-05-22 13:03] LABS: ALT 20 U/L (9-52); AST 22 U/L (14-36); Albumin 3.6 g/dL (3.5-5.0); Alkaline Phosphatase 65 U/L (38-126); Anion Gap 13 mmol/L; Blood Urea Nitrogen 24 mg/dL (7-17); C Reactive Protein <5.0 mg/L (<10.0); Calcium 9.3 mg/dL (8.4-10.2); Carbon Dioxide 23 mmol/L (22-30); Chloride 108 mmol/L (98-107); Glucose 90 mg/dL (74-99); Potassium 4.3 mmol/L (3.5-5.1); Sodium 144 mmol/L (137-145); Total Bilirubin 0.4 mg/dL (0.2-1.3); Total Protein 6.3 g/dL (6.3-8.2)
[2017-05-22 13:39] LABS: Erythrocyte Sedimentation Rate 8 mm/hr (0-20)
== END | disposition home or self-care (01) ==
LOC: LABWHC1 09:54
PROVIDERS: ATTEND Internal Medicine Infectious Disease
DX: T84.7XXA Infection and inflammatory reaction due to other internal orthopedic prosthetic devices, implants and grafts, initial encounter (principal)
CPT/HCPCS: 36415; 80053; 85025; 85652; 86140

== ENCOUNTER → 2017-06-03 | Outpatient (CLI) | payer MEDICARE, BC ==
[2017-06-03 15:47] LABS: Basophils % (A) 0 %; Eosinophils # (A) 0.1 k/uL (0-0.7); Eosinophils % (A) 3 %; HCT 40.4 % (34.0-46.0); Lymphocytes # (A) 2.5 k/uL (1.0-4.8); Lymphocytes % (A) 44 %; MCH 30.4 pg (25.0-35.0); MCHC 32.3 g/dL (31.0-37.0); MCV 94.2 fL (80.0-100.0); Mean Platelet Volume 6.8; Monocytes # (A) 0.3 k/uL (0-1.0); Monocytes % (A) 6 %; Neutrophils # (A) 2.6 k/uL (1.3-7.7); Neutrophils % (A) 45 %; Platelet Count 212 k/uL (150-450); RBC 4.28 m/uL (3.80-5.40); RDW 13.3 % (11.5-15.5); WBC 5.6 k/uL (3.8-10.6)
[2017-06-03 16:00] LABS: Albumin 4.3 g/dL (3.5-5.0); Calcium 9.9 mg/dL (8.4-10.2); Potassium 4.6 mmol/L (3.5-5.1); Total Bilirubin 0.3 mg/dL (0.2-1.3); Total Protein 7.2 g/dL (6.3-8.2); Uric Acid 5.2 mg/dL (3.7-7.4)
[2017-06-04 00:43] LABS: Parathyroid Hormone Intact 49.8 pg/mL (14.0-72.0)
[2017-06-04 00:48] LABS: Vitamin D 25 Hydroxy 20.2 ng/mL (30.0-100.0)
[2017-06-04 03:08] LABS: Hemoglobin A1C 6.1 % (4.0-6.0)
== END | disposition home or self-care (01) ==
LOC: LABWHC1 15:15
PROVIDERS: ATTEND Family Medicine
DX: E78.5 Hyperlipidemia, unspecified (principal); N18.3 Chronic kidney disease, stage 3 (moderate); E83.42 Hypomagnesemia; E11.22 Type 2 diabetes mellitus with diabetic chronic kidney disease
CPT/HCPCS: 36415; 80053; 82043; 82306; 82570; 83036; 83735; 83970; 84550; 85025

== ENCOUNTER → 2017-07-22 | Outpatient (CLI) | payer MEDICARE, BC ==
[2017-07-22 10:19] LABS: Cholesterol 135 mg/dL (<200); HDL Cholesterol 63 mg/dL (40-60); LDL Cholesterol,Calculated 52 mg/dL (0-99); Triglycerides 99 mg/dL (<150)
[2017-07-22 16:03] LABS: Iron Saturation 29.55 (12.00-45.00)
== END | disposition home or self-care (01) ==
LOC: LABWHC1 08:40
PROVIDERS: ATTEND Nurse Practitioner Family
DX: E11.22 Type 2 diabetes mellitus with diabetic chronic kidney disease (principal); N18.3 Chronic kidney disease, stage 3 (moderate); D64.9 Anemia, unspecified; E55.9 Vitamin D deficiency, unspecified; E21.3 Hyperparathyroidism, unspecified; M10.9 Gout, unspecified; N39.0 Urinary tract infection, site not specified; E83.42 Hypomagnesemia; E78.5 Hyperlipidemia, unspecified
CPT/HCPCS: 36415; 80061; 82728; 83540; 83550; 84100

== ENCOUNTER → 2017-08-27 | Outpatient (CLI) | payer MEDICARE, BC ==
[2017-08-27 10:41] LABS: Calcium 9.7 mg/dL (8.4-10.2); Potassium 4.7 mmol/L (3.5-5.1)
== END | disposition home or self-care (01) ==
LOC: LABWHC1 09:57
PROVIDERS: ATTEND Nurse Practitioner Family
DX: N18.4 Chronic kidney disease, stage 4 (severe) (principal)
CPT/HCPCS: 36415; 80048

== ENCOUNTER → 2017-11-14 | Outpatient (CLI) | payer MEDICARE, BC ==
[2017-11-14 15:25] LABS: Basophils % (A) 0 %; Eosinophils # (A) 0.2 k/uL (0-0.7); Eosinophils % (A) 3 %; HCT 42.3 % (34.0-46.0); HGB 13.3 gm/dL (11.4-16.0); Lymphocytes # (A) 2.9 k/uL (1.0-4.8); Lymphocytes % (A) 46 %; MCH 30.9 pg (25.0-35.0); MCHC 31.4 g/dL (31.0-37.0); MCV 98.4 fL (80.0-100.0); Mean Platelet Volume 6.3; Monocytes # (A) 0.4 k/uL (0-1.0); Monocytes % (A) 6 %; Neutrophils # (A) 2.7 k/uL (1.3-7.7); Neutrophils % (A) 43 %; Platelet Count 221 k/uL (150-450); RDW 12.8 % (11.5-15.5); WBC 6.3 k/uL (3.8-10.6)
[2017-11-14 15:27] LABS: Appearance,Urine Clear (Clear); Bilirubin,Urine Negative (Negative); Blood,Urine Negative (Negative); Color,Urine Light Yellow; Glucose,Urine (UA) Negative (Negative); Ketones,Urine Negative (Negative); Leukocyte Esterase,Urine Negative (Negative); Nitrite,Urine Negative (Negative); Protein,Urine Negative (Negative); Specific Gravity,Urine 1.007 (1.001-1.035); Urobilinogen,Urine <2.0 mg/dL (<2.0)
[2017-11-14 16:03] LABS: ALT 30 U/L (9-52); AST 38 U/L (14-36); Albumin 4.4 g/dL (3.5-5.0); Alkaline Phosphatase 66 U/L (38-126); Anion Gap 11 mmol/L; Blood Urea Nitrogen 16 mg/dL (7-17); C Reactive Protein <5.0 mg/L (<10.0); Carbon Dioxide 26 mmol/L (22-30); Chloride 104 mmol/L (98-107); Glucose 74 mg/dL (74-99); Magnesium 1.9 mg/dL (1.6-2.3); Phosphorus 4.5 mg/dL (2.5-4.5); Potassium 3.9 mmol/L (3.5-5.1); Sodium 141 mmol/L (137-145); Total Bilirubin 0.4 mg/dL (0.2-1.3); Total Protein 7.2 g/dL (6.3-8.2); Uric Acid 7.7 mg/dL (3.7-7.4)
[2017-11-14 17:35] LABS: Erythrocyte Sedimentation Rate 10 mm/hr (0-20)
[2017-11-14 18:37] LABS: Iron Saturation 27.18 (12.00-45.00)
[2017-11-14 18:45] LABS: Vitamin D 25 Hydroxy 32.6 ng/mL (30.0-100.0)
== END | disposition home or self-care (01) ==
LOC: LABWHC1 14:34
PROVIDERS: ATTEND Internal Medicine Infectious Disease
DX: N18.4 Chronic kidney disease, stage 4 (severe) (principal); D63.1 Anemia in chronic kidney disease; E55.9 Vitamin D deficiency, unspecified; E21.3 Hyperparathyroidism, unspecified; M10.9 Gout, unspecified; N39.0 Urinary tract infection, site not specified; T84.7XXA Infection and inflammatory reaction due to other internal orthopedic prosthetic devices, implants and grafts, initial encounter
CPT/HCPCS: 36415; 80053; 81003; 82306; 82728; 83540; 83550; 83735; 83970; 84100; 84550; 85025; 85652; 86140

== ENCOUNTER 2017-12-16 18:34 | Emergency (ER) | payer MEDICARE, BC ==
[2017-12-16 18:40] VITALS: RESP 16
[2017-12-16] MEDS ORDERED: SODIUM CHLORIDE 0.9% 1,000 ML IV STA (19:00)
[2017-12-16] MEDS ORDERED: methylPREDNISolone SOD SUCCI 125 MG/2 ML VIAL IV STA (19:01)
[2017-12-16] MEDS ORDERED: ONDANSETRON 4 MG/2 ML VIAL IVP STA (19:01)
[2017-12-16] MEDS ORDERED: MORPHINE SULFATE 2 MG/ML SYRINGE IVP ONE (19:02)
--- NOTE | 2017-12-16 19:03 | ED ---
Dizziness HPI - General Source: patient, RN notes reviewed, old records reviewed Mode of arrival: wheelchair Limitations: no limitations <Rajwinder Stanley - Last Filed: 12/16/17 22:40> <Nancy Garcia - Last Filed: 12/17/17 02:34> - General Chief Complaint: Dizziness Stated Complaint: Dizziness, headache Time Seen by Provider: 12/16/17 18:48 - History of Present Illness Initial Comments: Patient [id number] female who presents emergency Department chief complaint of dizziness and chronic headache for the past few months. Treated by her PCP and her nose and throat doctor for vertigo. She reports that the medications they gave her do not help. She reports daily dizziness upon waking and turning her head. Patient states that she's had no other complaints. She denies any chest pain or shortness of breath. She denies any nausea or vomiting abdominal pain. (Rajwinder Stanley) - Related Data Home Medications Medication Instructions Recorded Confirmed Aspirin 81 mg PO HS 03/16/17 12/16/17 Glucosamine/Chondr Paulino A Sod [Osteo 1 tab PO DAILY 03/16/17 12/16/17 Bi-Flex Caplet] Magnesium Chloride [Mag64] 64 mg PO BID@0900,1800 03/16/17 12/16/17 Simvastatin [Zocor] 20 mg PO HS 03/16/17 12/16/17 Biotin 10,000 mcg PO DAILY@1800 12/16/17 12/16/17 Doxycycline Hyclate 100 mg PO BID 12/16/17 12/16/17 Glimepiride [Amaryl] 2 mg PO DAILY 12/16/17 12/16/17 Meclizine [Antivert] 25 mg PO BID 12/16/17 12/16/17 Multivitamins, Thera [Multivitamin 1 tab PO DAILY 12/16/17 12/16/17 (formulary)] Omeprazole [PriLOSEC] 20 mg PO DAILY 12/16/17 12/16/17 hydrOXYzine PAMOATE [Vistaril] 25 mg PO QID PRN 12/16/17 12/16/17 traMADol HCL [Ultram] 50 mg PO QID PRN 12/16/17 12/16/17 Previous Rx's Medication Instructions Recorded methylPREDNISolone Dose Pack 4 mg PO DIRECTED #21 package 12/16/17 [Medrol Dose Pack] Allergies Allergy/AdvReac Type Severity Reaction Status Date / Time ciprofloxacin [From Cipro] Allergy Rash/Hives Verified 12/16/17 19:09 nitrofurantoin Allergy Unknown Verified 12/16/17 19:09 Penicillins Allergy Rash/Hives Verified 12/16/17 19:09 latex AdvReac Rash/Hives Verified 12/16/17 19:09 Review of Systems ROS Other: All systems not noted in ROS Statement are negative. <Rajwinder Stanley - Last Filed: 12/16/17 22:40> ROS Other: All systems not noted in ROS Statement are negative. <Nancy Garcia - Last Filed: 12/17/17 02:34> ROS Statement: Those systems with pertinent positive or pertinent negative responses have been documented in the HPI. Past Medical History Past Medical History: Diabetes Mellitus, GERD/Reflux History of Any Multi-Drug Resistant Organisms: Other MDRO Date of last positivie culture/infection: 2016 MDRO Source:: e-coli in knee Past Surgical History: Appendectomy, Back Surgery, Cholecystectomy, Hysterectomy Additional Past Surgical History / Comment(s): bilateral shoulder, bilateral carpal tunnel, knee replaced Past Psychological History: No Psychological Hx Reported Smoking Status: Never smoker Past Alcohol Use History: None Reported Past Drug Use History: None Reported <Rajwinder Stanley - Last Filed: 12/16/17 22:40> General Exam Limitations: no limitations General appearance: alert, in no apparent distress Head exam: Present: atraumatic, normocephalic, normal inspection Eye exam: Present: normal appearance, PERRL, EOMI. Absent: scleral icterus, conjunctival injection, periorbital swelling ENT exam: Present: normal exam Neck exam: Present: normal inspection. Absent: tenderness, meningismus, lymphadenopathy Respiratory exam: Present: normal lung sounds bilaterally. Absent: respiratory distress, wheezes, rales, rhonchi, stridor Cardiovascular Exam: Present: regular rate, normal rhythm, normal heart sounds. Absent: systolic murmur, diastolic murmur, rubs, gallop, clicks GI/Abdominal exam: Present: soft, normal bowel sounds. Absent: distended, tenderness, guarding, rebound, rigid Extremities exam: Present: normal inspection, full ROM, normal capillary refill. Absent: tenderness, pedal edema, joint swelling, calf tenderness Back exam: Present: normal inspection Neurological exam: Present: alert, oriented X3, CN II-XII intact Psychiatric exam: Present: normal affect, normal mood <Rajwinder Stanley - Last Filed: 12/16/17 22:40> <Nancy Garcia P - Last Filed: 12/17/17 02:34> - General Exam Comments Initial Comments: Well-appearing 10-year-old female. Alert and oriented 3. No acute distress. ( Rajwinder Stanley) Vital Signs 12/16/17 12/16/17 12/16/17 18:38 21:27 22:50 Temperature 98 F 98.6 F 98.3 F Pulse Rate 82 71 75 Respiratory 16 16 16 Rate Blood Pressure 130/79 158/92 173/82 O2 Sat by Pulse 100 95 97 Oximetry Medical Decision Making - Lab Data Result diagrams: 12/16/17 19:03 12/16/17 19:03 - Radiology Data Radiology results: report reviewed <Rajwinder Stnaley - Last Filed: 12/16/17 22:40> - Lab Data Result diagrams: 12/16/17 19:03 12/16/17 19:03 <Nancy Garcia P - Last Filed: 12/17/17 02:34> - Medical Decision Making 82-year-old female present return with chief chronic headaches and chronic vertigo over the past 2 months. She reports she feels like her vertigo seems to be worsening. Patient was offered pain medication but refused at this time. I did give Patient a dose of steroid be helped with the permission causing vertigo. I did go to old CT scans addition some chronic left-sided mastoiditis. We did complete a CT of her brain today which was negative for any acute disease. Patient's EKG and blood work was otherwise unremarkable. Patient at this time will be started on 08, given referral for PCP and likely following up with the vehicle therapy to help her prevent form Apley's maneuver. Patient agrees to treatment plan will comply. Term parameters were discussed. (Rajwinder Stanley) I personally saw and evaluated this patient, this patient reports that she's been dealing with vertiginous symptoms for months, she has seen her primary care as well as ENT, she has attempted to take meclizine. Upon the initial evaluation with the PA the patient denied any tinnitus but when I asked she reports that she has been having ringing in her ears and change in her hearing. Patient is not familiar with any former diagnosis of Mnire's disease. I advised the patient she should discuss this with her primary care or ENT in the treatment is usually with a low salt diet. Patient is willing to try this. Patient has no other focal neurologic deficits, was able to ambulate well with no complaints. Patient stable for discharge home. (Nancy Garcia) - Lab Data Lab Results 12/16/17 12/16/17 12/16/17 Range/Units 19:03 19:03 19:03 WBC 5.5 (3.8-10.6) k/uL RBC 4.35 (3.80-5.40) m/uL Hgb 13.5 (11.4-16.0) gm/dL Hct 40.8 (34.0-46.0) % MCV 93.7 (80.0-100.0) fL MCH 30.9 (25.0-35.0) pg MCHC 33.0 (31.0-37.0) g/dL RDW 12.7 (11.5-15.5) % Plt Count 231 (150-450) k/uL Neutrophils % 57 % Lymphocytes % 32 % Monocytes % 7 % Eosinophils % 2 % Basophils % 1 % Neutrophils # 3.1 (1.3-7.7) k/uL Lymphocytes # 1.8 (1.0-4.8) k/uL Monocytes # 0.4 (0-1.0) k/uL Eosinophils # 0.1 (0-0.7) k/uL Basophils # 0.0 (0-0.2) k/uL PT (9.0-12.0) sec INR (<1.2) Sodium 140 (137-145) mmol/L Potassium 4.2 (3.5-5.1) mmol/L Chloride 110 H (98-107) mmol/L Carbon Dioxide 21 L (22-30) mmol/L Anion Gap 9 mmol/L BUN 17 (7-17) mg/dL Creatinine 1.21 H (0.52-1.04) mg/dL Est GFR (CKD-EPI)AfAm 49 (>60 ml/min/1.73 sqM) Est GFR (CKD-EPI)NonAf 43 (>60 ml/min/1.73 sqM) Glucose 79 (74-99) mg/dL Plasma Lactic Acid Shiva 1.2 (0.7-2.0) mmol/L Calcium 9.9 (8.4-10.2) mg/dL Total Bilirubin 0.5 (0.2-1.3) mg/dL AST 28 (14-36) U/L ALT 24 (9-52) U/L Alkaline Phosphatase 68 (38-126) U/L Troponin I (0.000-0.034) ng/mL Total Protein 7.0 (6.3-8.2) g/dL Albumin 4.0 (3.5-5.0) g/dL 12/16/17 12/16/17 Range/Units 19:03 19:03 WBC (3.8-10.6) k/uL RBC (3.80-5.40) m/uL Hgb (11.4-16.0) gm/dL Hct (34.0-46.0) % MCV (80.0-100.0) fL MCH (25.0-35.0) pg MCHC (31.0-37.0) g/dL RDW (11.5-15.5) % Plt Count (150-450) k/uL Neutrophils % % Lymphocytes % % Monocytes % % Eosinophils % % Basophils % % Neutrophils # (1.3-7.7) k/uL Lymphocytes # (1.0-4.8) k/uL Monocytes # (0-1.0) k/uL Eosinophils # (0-0.7) k/uL Basophils # (0-0.2) k/uL PT 10.7 (9.0-12.0) sec INR 1.1 (<1.2) Sodium (137-145) mmol/L Potassium (3.5-5.1) mmol/L Chloride (98-107) mmol/L Carbon Dioxide (22-30) mmol/L Anion Gap mmol/L BUN (7-17) mg/dL Creatinine (0.52-1.04) mg/dL Est GFR (CKD-EPI)AfAm (>60 ml/min/1.73 sqM) Est GFR (CKD-EPI)NonAf (>60 ml/min/1.73 sqM) Glucose (74-99) mg/dL Plasma Lactic Acid Shiva (0.7-2.0) mmol/L Calcium (8.4-10.2) mg/dL Total Bilirubin (0.2-1.3) mg/dL AST (14-36) U/L ALT (9-52) U/L Alkaline Phosphatase (38-126) U/L Troponin I <0.012 (0.000-0.034) ng/mL Total Protein (6.3-8.2) g/dL Albumin (3.5-5.0) g/dL 12/16/17 19:12 EKG shows sinus rhythm left axis deviation. Right bundle branch block. Abnormal EKG noted. Ventricular rate of 77 bpm. Was 144 most seconds. QRS duration 102. QTQTC's were 22/477 ms. (Rajwinder Stanley) - Radiology Data No acute fracture dislocation evident cervical spine. No acute intracranial hemorrhage or mass effect or midline shift is seen. (Rajwinder Stanley) Disposition Is patient prescribed a controlled substance at d/c from ED?: No Time of Disposition: 22:44 <Rajwinder Stanley - Last Filed: 12/16/17 22:40> <Nancy Garcia - Last Filed: 12/17/17 02:34> Clinical Impression: Vertigo, Chronic headache Disposition: HOME SELF-CARE Condition: Good Instructions: Meniere Disease (ED), Vertigo (ED) Additional Instructions: Patient has have close follow-up with primary care physician. Continue the Antivert medication and can at the steroid. Recommended follow-up with primary care provider and may need referral for physical therapy to help with Apley's maneuver technique. Patient should return to emergency department if any alarming signs or symptoms occur. Prescriptions: methylPREDNISolone Dose Pack [Medrol Dose Pack] 4 mg PO DIRECTED #21 package Referrals: Lilian Starks MD [Primary Care Provider] - 1-2 days Daria Montague MD [STAFF PHYSICIAN] - 1-2 days
[2017-12-16 19:34] LABS: Basophils % (A) 1 %; Calcium 9.9 mg/dL (8.4-10.2); Eosinophils # (A) 0.1 k/uL (0-0.7); Eosinophils % (A) 2 %; HCT 40.8 % (34.0-46.0); HGB 13.5 gm/dL (11.4-16.0); Lymphocytes # (A) 1.8 k/uL (1.0-4.8); Lymphocytes % (A) 32 %; MCH 30.9 pg (25.0-35.0); MCV 93.7 fL (80.0-100.0); Mean Platelet Volume 6.4; Monocytes # (A) 0.4 k/uL (0-1.0); Monocytes % (A) 7 %; Neutrophils # (A) 3.1 k/uL (1.3-7.7); Neutrophils % (A) 57 %; Platelet Count 231 k/uL (150-450); Potassium 4.2 mmol/L (3.5-5.1); RBC 4.35 m/uL (3.80-5.40); RDW 12.7 % (11.5-15.5); Total Bilirubin 0.5 mg/dL (0.2-1.3); WBC 5.5 k/uL (3.8-10.6)
[2017-12-16 19:50] LABS: INR 1.1 (<1.2); Prothrombin Time 10.7 sec (9.0-12.0)
--- NOTE | 2017-12-16 21:07 | CT ---
EXAMINATION TYPE: CT brain vladimir wo con DATE OF EXAM: 12/16/2017 COMPARISON: 03/16/2017 HISTORY: Dizziness and headache. CT DLP: 793.5 mGycm Automated exposure control for dose reduction was used. TECHNIQUE: CT scan of the head and cervical spine are performed without contrast. FINDINGS: There is no acute intracranial hemorrhage, mass effect, or midline shift identified. The ventricles and sulci are within normal limits in size. The globes are intact and the visualized sin uses are clear. Cervical spine is visualized in its entirety from C1 through upper thoracic levels and demonstrates s atisfactory alignment without evidence of acute fracture or dislocation. Prevertebral soft tissue ap pears within normal limits. The C1-C2 articulation is unremarkable. IMPRESSION: 1. There is no acute fracture or dislocation evident in the cervical spine. 2. No acute intracranial hemorrhage, mass effect, or midline shift is seen.
[2017-12-16 23:00] VITALS: BP 173/82; PULSE 75; TEMP 98.3
== END 2017-12-16 23:08 | disposition home or self-care (01) ==
LOC: EC 18:34
DX: R42 Dizziness and giddiness (principal); R51 Headache; G89.29 Other chronic pain; E11.9 Type 2 diabetes mellitus without complications; K21.9 Gastro-esophageal reflux disease without esophagitis; Z90.49 Acquired absence of other specified parts of digestive tract; Z90.710 Acquired absence of both cervix and uterus; Z96.659 Presence of unspecified artificial knee joint; Z98.890 Other specified postprocedural states; Z79.82 Long term (current) use of aspirin; Z79.84 Long term (current) use of oral hypoglycemic drugs; Z79.899 Other long term (current) drug therapy; Z88.0 Allergy status to penicillin; Z88.1 Allergy status to other antibiotic agents; Z91.040 Latex allergy status
CPT/HCPCS: 36415; 93005; 80053; 83605; 84484; 85025; 85610; 72125; 70450; 99285; 96374; 96361 ×3; J2930

== ENCOUNTER 2017-12-17 18:57 | Emergency (ER) | payer MEDICARE, BC ==
[2017-12-17 19:03] VITALS: RESP 16
[2017-12-17 19:48] LABS: Glucose,Whole Blood 378 mg/dL (75-99)
[2017-12-17] MEDS ORDERED: INSULIN REGULAR 100 UNIT/ML VIAL IV ONE (19:50)
[2017-12-17] MEDS ORDERED: SODIUM CHLORIDE 0.9% 1,000 ML IV ONE (20:21)
[2017-12-17 20:28] LABS: Basophils % (A) 0 %; Eosinophils % (A) 0 %; HCT 40.5 % (34.0-46.0); HGB 13.1 gm/dL (11.4-16.0); Lymphocytes # (A) 1.2 k/uL (1.0-4.8); Lymphocytes % (A) 14 %; MCH 30.9 pg (25.0-35.0); MCHC 32.4 g/dL (31.0-37.0); MCV 95.6 fL (80.0-100.0); Mean Platelet Volume 6.8; Monocytes # (A) 0.3 k/uL (0-1.0); Monocytes % (A) 4 %; Neutrophils % (A) 82 %; Platelet Count 252 k/uL (150-450); RBC 4.24 m/uL (3.80-5.40); RDW 12.6 % (11.5-15.5); WBC 8.5 k/uL (3.8-10.6)
[2017-12-17 20:41] LABS: Potassium 4.6 mmol/L (3.5-5.1)
--- NOTE | 2017-12-17 20:43 | ED ---
Recheck HPI - General Source: patient, RN notes reviewed, old records reviewed Mode of arrival: wheelchair Limitations: no limitations <Rajwinder Stanley - Last Filed: 12/18/17 03:07> <Nancy Garcia - Last Filed: 12/18/17 06:21> - General Chief Complaint: Recheck/Abnormal Lab/Rx Stated Complaint: Hyperglycemia Time Seen by Provider: 12/17/17 19:34 - History of Present Illness Initial Comments: Patient is an 82-year-old female presents for instructed to complain of elevated blood sugar episode. Patient started on steroids yesterday treat for treatment for vertigo. Patient states that her blood sugar has been elevated at 440 today. Normally manages her diabetes with diet and glimepiride. Patient states that she has no complaints associated with high blood sugar. Denies polyuria or, chest pain shortness breath. She reports that she's had no worsening vertigo or complains of no significant headache at this time. Patient states that she's had no recent fevers or chills. (Rajwinder Stanley) - Related Data Home Medications Medication Instructions Recorded Confirmed Aspirin 81 mg PO HS 03/16/17 12/17/17 Glucosamine/Chondr Paulino A Sod [Osteo 1 tab PO DAILY 03/16/17 12/17/17 Bi-Flex Caplet] Magnesium Chloride [Mag64] 64 mg PO BID@0900,1800 03/16/17 12/17/17 Simvastatin [Zocor] 20 mg PO HS 03/16/17 12/17/17 Biotin 10,000 mcg PO DAILY@1800 12/16/17 12/17/17 Doxycycline Hyclate 100 mg PO BID 12/16/17 12/17/17 Glimepiride [Amaryl] 2 mg PO DAILY 12/16/17 12/17/17 Meclizine [Antivert] 25 mg PO BID 12/16/17 12/17/17 Multivitamins, Thera [Multivitamin 1 tab PO DAILY 12/16/17 12/17/17 (formulary)] Omeprazole [PriLOSEC] 20 mg PO DAILY 12/16/17 12/17/17 hydrOXYzine PAMOATE [Vistaril] 25 mg PO QID PRN 12/16/17 12/17/17 traMADol HCL [Ultram] 50 mg PO QID PRN 12/16/17 12/17/17 methylPREDNISolone Dose Pack See Taper PO DIRECTED 12/17/17 12/17/17 [Medrol Dose Pack] Allergies Allergy/AdvReac Type Severity Reaction Status Date / Time ciprofloxacin [From Cipro] Allergy Rash/Hives Verified 12/17/17 19:13 nitrofurantoin Allergy Unknown Verified 12/17/17 19:13 Penicillins Allergy Rash/Hives Verified 12/17/17 19:13 latex AdvReac Rash/Hives Verified 12/17/17 19:13 Review of Systems ROS Other: All systems not noted in ROS Statement are negative. <Rajwinder Stanley - Last Filed: 12/18/17 03:07> ROS Other: All systems not noted in ROS Statement are negative. <Nancy Garcia - Last Filed: 12/18/17 06:21> ROS Statement: Those systems with pertinent positive or pertinent negative responses have been documented in the HPI. Past Medical History Past Medical History: Diabetes Mellitus, GERD/Reflux History of Any Multi-Drug Resistant Organisms: Other MDRO Date of last positivie culture/infection: 2017 MDRO Source:: e-coli in knee Past Surgical History: Appendectomy, Back Surgery, Cholecystectomy, Hysterectomy Additional Past Surgical History / Comment(s): bilateral shoulder, bilateral carpal tunnel, knee replaced Past Psychological History: No Psychological Hx Reported Smoking Status: Never smoker Past Alcohol Use History: None Reported Past Drug Use History: None Reported <Rajwinder Stanley - Last Filed: 12/18/17 03:07> General Exam Limitations: no limitations General appearance: alert, in no apparent distress Head exam: Present: atraumatic, normocephalic, normal inspection Eye exam: Present: normal appearance, PERRL, EOMI. Absent: scleral icterus, conjunctival injection, periorbital swelling ENT exam: Present: normal exam, mucous membranes moist Neck exam: Present: normal inspection. Absent: tenderness, meningismus, lymphadenopathy Respiratory exam: Present: normal lung sounds bilaterally. Absent: respiratory distress, wheezes, rales, rhonchi, stridor Cardiovascular Exam: Present: regular rate, normal rhythm, normal heart sounds. Absent: systolic murmur, diastolic murmur, rubs, gallop, clicks GI/Abdominal exam: Present: soft, normal bowel sounds. Absent: distended, tenderness, guarding, rebound, rigid Extremities exam: Present: normal inspection, full ROM, normal capillary refill. Absent: tenderness, pedal edema, joint swelling, calf tenderness Back exam: Present: normal inspection Neurological exam: Present: alert, oriented X3, CN II-XII intact Psychiatric exam: Present: normal affect, normal mood <Rajwinder Stanley - Last Filed: 12/18/17 03:07> <Nancy Garcia - Last Filed: 12/18/17 06:21> - General Exam Comments Initial Comments: Well-appearing 82-year-old female. Alert and oriented. No acute distress. ( Rajwinder Stanley) Vital Signs 12/17/17 12/17/17 12/17/17 18:58 20:29 22:10 Temperature 97.9 F 98.1 F Pulse Rate 77 64 66 Respiratory 16 16 16 Rate Blood Pressure 165/87 142/75 161/85 O2 Sat by Pulse 99 95 98 Oximetry Medical Decision Making - Lab Data Result diagrams: 12/17/17 20:05 12/17/17 20:05 <Rajwinder Stanley - Last Filed: 12/18/17 03:07> - Lab Data Result diagrams: 12/17/17 20:05 12/17/17 20:05 <Nancy Garcia - Last Filed: 12/18/17 06:21> - Medical Decision Making 82-year-old female presents emergency department today with episodes of high blood sugar after receiving steroids yesterday. Blood sugar at home was 440. She arrived here and was given fluids I gave the Patient 5 units of insulin. Patient normally manages her diabetes with diet and glimipride. She sees Dr. Starks tomorrow and she is likely to be restarted on metformin and medications. She denies any symptoms associated with the blood sugar being elevated. I discussed this is likely side effect from the steroid. Discussed that she should discontinue steroids until seen by PCP. Patient's last blood sugar was 320 after insulin. Discussed continuing her glimiperide provided home and following up with Dr. Starks tomorrow. Patient agrees to treatment plan will comply. Return parameters were discussed. (Rajwinder Stanley) I was available for consultation in the emergency department. The history and physical exam were done by the midlevel provider. I was consulted for this patient's care. I reviewed the case with the midlevel provider and based on their presentation of the patient, I agree with the assessment, medical decision making and plan of care as documented. (Nancy Garcia) - Lab Data Lab Results 12/17/17 12/17/17 12/17/17 Range/Units 19:46 20:05 20:05 WBC (3.8-10.6) k/uL RBC (3.80-5.40) m/uL Hgb (11.4-16.0) gm/dL Hct (34.0-46.0) % MCV (80.0-100.0) fL MCH (25.0-35.0) pg MCHC (31.0-37.0) g/dL RDW (11.5-15.5) % Plt Count (150-450) k/uL Neutrophils % % Lymphocytes % % Monocytes % % Eosinophils % % Basophils % % Neutrophils # (1.3-7.7) k/uL Lymphocytes # (1.0-4.8) k/uL Monocytes # (0-1.0) k/uL Eosinophils # (0-0.7) k/uL Basophils # (0-0.2) k/uL Sodium 137 (137-145) mmol/L Potassium 4.6 (3.5-5.1) mmol/L Chloride 106 (98-107) mmol/L Carbon Dioxide 21 L (22-30) mmol/L Anion Gap 10 mmol/L BUN 25 H (7-17) mg/dL Creatinine 1.12 H (0.52-1.04) mg/dL Est GFR (CKD-EPI)AfAm 54 (>60 ml/min/1.73 sqM) Est GFR (CKD-EPI)NonAf 47 (>60 ml/min/1.73 sqM) Glucose 351 H (74-99) mg/dL POC Glucose (mg/dL) 378 H (75-99) mg/dL POC Glu Roughener ID Lotus Yin [address] Glu mg/dL 126 Hemoglobin A1c 6.0 (4.0-6.0) % Calcium 10.0 (8.4-10.2) mg/dL 12/17/17 12/17/17 12/17/17 Range/Units 20:05 21:14 21:44 WBC 8.5 (3.8-10.6) k/uL RBC 4.24 (3.80-5.40) m/uL Hgb 13.1 (11.4-16.0) gm/dL Hct 40.5 (34.0-46.0) % MCV 95.6 (80.0-100.0) fL MCH 30.9 (25.0-35.0) pg MCHC 32.4 (31.0-37.0) g/dL RDW 12.6 (11.5-15.5) % Plt Count 252 (150-450) k/uL Neutrophils % 82 % Lymphocytes % 14 % Monocytes % 4 % Eosinophils % 0 % Basophils % 0 % Neutrophils # 7.0 (1.3-7.7) k/uL Lymphocytes # 1.2 (1.0-4.8) k/uL Monocytes # 0.3 (0-1.0) k/uL Eosinophils # 0.0 (0-0.7) k/uL Basophils # 0.0 (0-0.2) k/uL Sodium (137-145) mmol/L Potassium (3.5-5.1) mmol/L Chloride (98-107) mmol/L Carbon Dioxide (22-30) mmol/L Anion Gap mmol/L BUN (7-17) mg/dL Creatinine (0.52-1.04) mg/dL Est GFR (CKD-EPI)AfAm (>60 ml/min/1.73 sqM) Est GFR (CKD-EPI)NonAf (>60 ml/min/1.73 sqM) Glucose (74-99) mg/dL POC Glucose (mg/dL) 323 H 326 H (75-99) mg/dL POC Glu Roughener ID Lotus Yin [address] Glu mg/dL Hemoglobin A1c (4.0-6.0) % Calcium (8.4-10.2) mg/dL Disposition Is patient prescribed a controlled substance at d/c from ED?: No Time of Disposition: 21:55 <Rajwinder Stanley - Last Filed: 12/18/17 03:07> <Nancy Garcia - Last Filed: 12/18/17 06:21> Clinical Impression: Hyperglycemia Disposition: HOME SELF-CARE Condition: Good Instructions: Diabetic Hyperglycemia (ED) Additional Instructions: Follow-up with primary care physician about restarting metformin. Discontinue steroids. Return to the emergency department if any alarming signs or symptoms occur. Referrals: Lilian Starks MD [Primary Care Provider] - 1-2 days
[2017-12-17 21:17] LABS: Glucose,Whole Blood 323 mg/dL (75-99)
[2017-12-17 21:45] LABS: Glucose,Whole Blood 326 mg/dL (75-99)
[2017-12-17 22:13] VITALS: BP 161/85; PULSE 66; TEMP 98.1
== END 2017-12-17 22:18 | disposition home or self-care (01) ==
LOC: EC 18:57
DX: E11.65 Type 2 diabetes mellitus with hyperglycemia (principal); K21.9 Gastro-esophageal reflux disease without esophagitis; Z88.0 Allergy status to penicillin; Z88.1 Allergy status to other antibiotic agents; Z91.040 Latex allergy status; Z79.52 Long term (current) use of systemic steroids; Z79.82 Long term (current) use of aspirin; Z79.84 Long term (current) use of oral hypoglycemic drugs; Z79.899 Other long term (current) drug therapy
CPT/HCPCS: 36415; 80048; 83036; 85025; 96360; 99284

== ENCOUNTER → 2018-04-15 | Outpatient (CLI) | payer MEDICARE, BC ==
[2018-04-15 13:08] LABS: Basophils # (A) 0.1 k/uL (0-0.2); Basophils % (A) 1 %; Eosinophils # (A) 0.2 k/uL (0-0.7); Eosinophils % (A) 4 %; HCT 37.8 % (34.0-46.0); HGB 12.2 gm/dL (11.4-16.0); Lymphocytes # (A) 1.5 k/uL (1.0-4.8); Lymphocytes % (A) 31 %; MCHC 32.4 g/dL (31.0-37.0); MCV 95.9 fL (80.0-100.0); Monocytes # (A) 0.4 k/uL (0-1.0); Monocytes % (A) 7 %; Neutrophils # (A) 2.6 k/uL (1.3-7.7); Neutrophils % (A) 54 %; Platelet Count 190 k/uL (150-450); RBC 3.94 m/uL (3.80-5.40); RDW 13.2 % (11.5-15.5); WBC 4.9 k/uL (3.8-10.6)
[2018-04-15 13:14] LABS: Appearance,Urine Clear (Clear); Bilirubin,Urine Negative (Negative); Blood,Urine Negative (Negative); Color,Urine Yellow; Glucose,Urine (UA) Negative (Negative); Ketones,Urine Negative (Negative); Leukocyte Esterase,Urine Negative (Negative); Nitrite,Urine Negative (Negative); Protein,Urine Negative (Negative); Specific Gravity,Urine 1.018 (1.001-1.035); Urobilinogen,Urine <2.0 mg/dL (<2.0)
[2018-04-15 18:42] LABS: Iron Saturation 22.75 (12.00-45.00)
[2018-04-15 18:46] LABS: Anion Gap 5.5 mmol/L (4.00-12.00); Calcium 9.2 mg/dL (8.7-10.3); Carbon Dioxide 26.5 mmol/L (21.6-31.8); Magnesium 1.8 mg/dL (1.5-2.4); Phosphorus 4.1 mg/dL (2.4-5.1); Potassium 4.3 mmol/L (3.5-5.5)
[2018-04-15 19:47] LABS: Parathyroid Hormone Intact 31.7 pg/mL (14.0-72.0)
== END ==
LOC: LABWHC1 11:01
PROVIDERS: ATTEND Nurse Practitioner Family
DX: N39.0 Urinary tract infection, site not specified (principal); E55.9 Vitamin D deficiency, unspecified; E21.3 Hyperparathyroidism, unspecified; M10.9 Gout, unspecified; D63.1 Anemia in chronic kidney disease; N18.4 Chronic kidney disease, stage 4 (severe)
CPT/HCPCS: 36415; 80048; 81003; 82728; 83540; 83550; 83735; 83970; 84100; 84550; 85025

== ENCOUNTER → 2018-05-29 | Outpatient (CLI) | payer MEDICARE, BC ==
[2018-05-29 16:10] LABS: Basophils % (A) 1 %; Eosinophils # (A) 0.1 k/uL (0-0.7); Eosinophils % (A) 2 %; HCT 40.3 % (34.0-46.0); HGB 12.4 gm/dL (11.4-16.0); Lymphocytes # (A) 1.5 k/uL (1.0-4.8); Lymphocytes % (A) 28 %; MCH 29.6 pg (25.0-35.0); MCHC 30.8 g/dL (31.0-37.0); MCV 95.9 fL (80.0-100.0); Mean Platelet Volume 6.6; Monocytes # (A) 0.4 k/uL (0-1.0); Monocytes % (A) 7 %; Neutrophils # (A) 3.3 k/uL (1.3-7.7); Neutrophils % (A) 60 %; Platelet Count 184 k/uL (150-450); WBC 5.4 k/uL (3.8-10.6)
[2018-05-30 00:12] LABS: ALT 16 U/L (8-44); AST 33 U/L (13-35); Alkaline Phosphatase 83 U/L (41-126); C Reactive Protein <0.4 mg/dL (0.0-0.8); Calcium 8.9 mg/dL (8.7-10.3); Carbon Dioxide 24.7 mmol/L (21.6-31.8); Chloride 110 mmol/L (96-109); Glucose 131 mg/dL (70-110); Potassium 4.3 mmol/L (3.5-5.5); Sodium 142 mmol/L (135-145); Total Bilirubin 0.4 mg/dL (0.3-1.2); Total Protein 5.8 g/dL (6.2-8.2)
== END | disposition home or self-care (01) ==
LOC: LABWHC1 15:09
PROVIDERS: ATTEND Internal Medicine Infectious Disease
DX: M00.9 Pyogenic arthritis, unspecified (principal)
CPT/HCPCS: 36415; 80053; 85025; 86140

== ENCOUNTER → 2018-06-17 | Outpatient (CLI) | payer MEDICARE, BC | END | disposition home or self-care (01) | LOC: LABPAT 11:43 | PROVIDERS: ATTEND Orthopaedic Surgery | DX: Z01.812 Encounter for preprocedural laboratory examination (principal) | CPT/HCPCS: 87070 ==

== ENCOUNTER → 2018-06-23 | Outpatient (CLI) | payer MEDICARE, BC ==
[2018-06-23 16:55] LABS: LDL Cholesterol,Calculated 46.4 mg/dL (0.0-131.0); VLDL Calculation 15.6 mg/dL (5.00-40.00)
== END | disposition home or self-care (01) ==
LOC: LABWHC1 10:04
PROVIDERS: ATTEND Family Medicine
DX: E11.9 Type 2 diabetes mellitus without complications (principal); E78.5 Hyperlipidemia, unspecified
CPT/HCPCS: 36415; 80061; 82043; 82570; 83036

== ENCOUNTER 2018-07-18 11:20 | Emergency (ER) | payer MEDICARE, BC ==
[2018-07-18 11:40] VITALS: RESP 18
[2018-07-18] MEDS ORDERED: HYDROcodone/APAP 5-325MG 1 EACH TAB PO STA (12:05)
--- NOTE | 2018-07-18 12:52 | XR ---
EXAMINATION TYPE: XR shoulder complete RT DATE OF EXAM: 07/18/2018 COMPARISON: NONE HISTORY: Pain TECHNIQUE: 4 views FINDINGS: There is severe narrowing of the glenohumeral joint space with spurring and sclerosis. Ther e is subchondral cystic change in the glenoid. There is flattening of the articular surface of the hu meral head. There is subacromial joint space narrowing and impingement. There is some widening of the AC joint space consistent with old ligamentous injury. IMPRESSION: Advanced arthritic changes in the right shoulder joint. This is probably osteoarthritis. Inflammatory arthritis is not excluded. No acute fracture seen.
[2018-07-18] MEDS ORDERED: KETOROLAC 30 MG/ML 1 ML VIAL IM STA (14:02)
--- NOTE | 2018-07-18 14:03 | ED ---
General Adult HPI - General Chief complaint: Extremity Injury, Upper Stated complaint: Shoulder Pain Time Seen by Provider: 07/18/18 11:56 Source: patient, RN notes reviewed Mode of arrival: ambulatory Limitations: physical limitation - History of Present Illness Initial comments: 83-year-old female with a past medical history of diabetes, GERD presents to the emergency department for a chief complaint of right shoulder pain. Patient states this has been ongoing for quite some time. Patient is scheduled for a shoulder surgery on August [address] Miller. Patient states in the past few days she started to have worsening pain in her shoulder. States pain is radiating all the way down to her arm and fingers. Denies any weakness or loss of sensation in the right arm. States it is painful to move her right arm. Patient states she is taking tramadol but it is not helpful.Patient has no other complaints at this time including shortness of breath, chest pain, abdominal pain, nausea or vomiting, headache, or visual changes. - Related Data Home Medications Medication Instructions Recorded Confirmed Aspirin 81 mg PO HS 03/16/17 12/17/17 Glucosamine/Chondr Paulino A Sod [Osteo 1 tab PO DAILY 03/16/17 12/17/17 Bi-Flex Caplet] Magnesium Chloride [Mag64] 64 mg PO BID@0900,1800 03/16/17 12/17/17 Simvastatin [Zocor] 20 mg PO HS 03/16/17 12/17/17 Biotin 10,000 mcg PO DAILY@1800 12/16/17 12/17/17 Doxycycline Hyclate 100 mg PO BID 12/16/17 12/17/17 Glimepiride [Amaryl] 2 mg PO DAILY 12/16/17 12/17/17 Meclizine [Antivert] 25 mg PO BID 12/16/17 12/17/17 Multivitamins, Thera [Multivitamin 1 tab PO DAILY 12/16/17 12/17/17 (formulary)] Omeprazole [PriLOSEC] 20 mg PO DAILY 12/16/17 12/17/17 hydrOXYzine PAMOATE [Vistaril] 25 mg PO QID PRN 12/16/17 12/17/17 traMADol HCL [Ultram] 50 mg PO QID PRN 12/16/17 12/17/17 methylPREDNISolone Dose Pack See Taper PO DIRECTED 12/17/17 12/17/17 [Medrol Dose Pack] Previous Rx's Medication Instructions Recorded HYDROcodone/APAP 5-325MG [[place] 1 tab PO Q6HR PRN #10 tab 07/18/18 5-325] predniSONE [Deltasone] 20 mg PO DAILY #5 tablet 07/18/18 Allergies Allergy/AdvReac Type Severity Reaction Status Date / Time ciprofloxacin [From Cipro] Allergy Rash/Hives Verified 07/18/18 11:40 nitrofurantoin Allergy Unknown Verified 07/18/18 11:40 Penicillins Allergy Rash/Hives Verified 07/18/18 11:40 latex AdvReac Rash/Hives Verified 07/18/18 11:40 Review of Systems ROS Statement: Those systems with pertinent positive or pertinent negative responses have been documented in the HPI. ROS Other: All systems not noted in ROS Statement are negative. Past Medical History Past Medical History: Diabetes Mellitus, GERD/Reflux History of Any Multi-Drug Resistant Organisms: Other MDRO Date of last positivie culture/infection: 2016 MDRO Source:: e-coli in knee Past Surgical History: Appendectomy, Back Surgery, Cholecystectomy, Hysterectomy Additional Past Surgical History / Comment(s): bilateral shoulder, bilateral carpal tunnel, knee replaced Past Psychological History: No Psychological Hx Reported Smoking Status: Never smoker Past Alcohol Use History: None Reported Past Drug Use History: None Reported General Exam Limitations: physical limitation General appearance: alert, in no apparent distress Head exam: Present: atraumatic, normocephalic, normal inspection Eye exam: Present: normal appearance, PERRL, EOMI. Absent: scleral icterus, conjunctival injection, periorbital swelling ENT exam: Present: normal exam, mucous membranes moist Neck exam: Present: normal inspection, full ROM. Absent: tenderness, meningismus, lymphadenopathy Respiratory exam: Present: normal lung sounds bilaterally. Absent: respiratory distress, wheezes, rales, rhonchi, stridor Cardiovascular Exam: Present: regular rate, normal rhythm, normal heart sounds. Absent: systolic murmur, diastolic murmur, rubs, gallop, clicks Extremities exam: Present: tenderness (Tenderness generalized over the right shoulder), normal capillary refill (Capillary refill less than 2 seconds and radial pulse 2+ in the right upper extremity), other (Sensation intact in the right upper extremity). Absent: full ROM (Patient has very limited range of motion of the right shoulder due to pain) Neurological exam: Present: alert, oriented X3, CN II-XII intact Psychiatric exam: Present: normal affect, normal mood Course Vital Signs 07/18/18 11:37 Temperature 97.6 F Pulse Rate 81 Respiratory 18 Rate Blood Pressure 119/67 O2 Sat by Pulse 100 Oximetry Medical Decision Making - Medical Decision Making 83-year-old female presents for shoulder pain. Patient is due for surgery on August 05. However shoulder pain worsened in the past few days and it is now radiating down her arm. Patient has shooting pains under her hand but denies any numbness or tingling, no weakness. Strength 5 out of 5 in upper extremities bilaterally. Tenderness noted over the right shoulder. X-ray does show advanced arthritic changes of the right shoulder probably osteoarthritis however inflammatory appendicitis is not excluded. I do believe this is osteoarthritis as this has been ongoing and patient is scheduled for surgery. At this time patient was given [place] and Toradol helped somewhat with her pain. Patient will be given oral steroids and some [place] for home. She is educated to follow up with Dr. Miller as soon as possible or return here if she has any worsening symptoms. Disposition Clinical Impression: Shoulder pain, right Disposition: HOME SELF-CARE Condition: Good Instructions (If sedation given, give patient instructions): Shoulder Pain (ED) Additional Instructions: Please take steroid and [place] for pain. Please follow-up with Dr. Miller today. Please return here if you have any worsening symptoms. Prescriptions: predniSONE [Deltasone] 20 mg PO DAILY #5 tablet HYDROcodone/APAP 5-325MG [[place] 5-325] 1 tab PO Q6HR PRN #10 tab PRN Reason: Pain Is patient prescribed a controlled substance at d/c from ED?: No Referrals: Lilian Starks MD [Primary Care Provider] - 1-2 days Brennan Miller MD [STAFF PHYSICIAN] - 1-2 days Time of Disposition: 14:06
[2018-07-18 14:29] VITALS: BP 137/91; PULSE 70; TEMP 97.8
== END 2018-07-18 14:29 | disposition home or self-care (01) ==
LOC: EC 11:20
DX: M25.511 Pain in right shoulder (principal); M19.011 Primary osteoarthritis, right shoulder; M79.601 Pain in right arm; M79.644 Pain in right finger(s); E11.9 Type 2 diabetes mellitus without complications; K21.9 Gastro-esophageal reflux disease without esophagitis; Z88.0 Allergy status to penicillin; Z88.1 Allergy status to other antibiotic agents; Z91.040 Latex allergy status; Z79.52 Long term (current) use of systemic steroids; Z79.82 Long term (current) use of aspirin; Z79.84 Long term (current) use of oral hypoglycemic drugs; Z79.899 Other long term (current) drug therapy; Z98.890 Other specified postprocedural states
CPT/HCPCS: 73030; 99283; 96372; J1885

== ENCOUNTER → 2018-07-24 | Outpatient (CLI) | payer MEDICARE, BC ==
[2018-07-24 11:59] LABS: Basophils % (A) 0 %; Eosinophils # (A) 0.2 k/uL (0-0.7); Eosinophils % (A) 2 %; HCT 40.3 % (34.0-46.0); HGB 12.9 gm/dL (11.4-16.0); Lymphocytes # (A) 2.6 k/uL (1.0-4.8); Lymphocytes % (A) 36 %; MCH 29.7 pg (25.0-35.0); MCV 92.8 fL (80.0-100.0); Monocytes # (A) 0.4 k/uL (0-1.0); Monocytes % (A) 6 %; Neutrophils # (A) 3.9 k/uL (1.3-7.7); Neutrophils % (A) 53 %; Platelet Count 198 k/uL (150-450); RBC 4.34 m/uL (3.80-5.40); RDW 14.2 % (11.5-15.5); WBC 7.3 k/uL (3.8-10.6)
[2018-07-24 12:08] LABS: Calcium 9.3 mg/dL (8.4-10.2); Potassium 4.1 mmol/L (3.5-5.1)
== END | disposition home or self-care (01) ==
LOC: LABPAT 11:04
PROVIDERS: ATTEND Family Medicine
DX: Z01.812 Encounter for preprocedural laboratory examination (principal)
CPT/HCPCS: 80048; 85025

== ENCOUNTER → 2018-07-28 | Outpatient (CLI) | payer MEDICARE, BC ==
[2018-07-28 10:13] LABS: Partial Thromboplastin Time 25.9 sec (22.0-30.0); Prothrombin Time 10.8 sec (9.0-12.0)
== END ==
LOC: LABPAT 09:13
PROVIDERS: ATTEND Family Medicine
DX: Z86.2 Personal history of diseases of the blood and blood-forming organs and certain disorders involving the immune mechanism (principal); Z86.19 Personal history of other infectious and parasitic diseases; Z01.812 Encounter for preprocedural laboratory examination
CPT/HCPCS: 36415; 85610; 85730

== ENCOUNTER 2018-08-05 06:33 | Inpatient (IN) | payer MEDICARE, BC ==
--- NOTE | 2018-08-04 09:37 | HP ---
HISTORY AND PHYSICAL CHIEF COMPLAINT: Right shoulder pain. HISTORY OF PRESENT ILLNESS: The patient is an 83-year-old right-hand dominant female who presents with progressive right shoulder pain worsening over the past several years. She is having pain with any attempted overhead activity and at night. She has tried medications without much relief. She has had a previous open surgery in the . PAST MEDICAL HISTORY: Significant for arthritis, renal disease, chronic infection left total knee arthroplasty, obesity, diabetes, reflux disease. PAST SURGICAL HISTORY: Significant for previous total knee arthroplasty with subsequent infection in addition to open right shoulder surgery and lumbar fusion. CURRENT MEDICATIONS: 1. Aspirin. 2. Biotin. 3. Omeprazole. 4. Doxycycline. 5. Simvastatin. ALLERGIES: She has allergies to LATEX, PENICILLIN, CIPROFLOXACIN, and MACRODANTIN. FAMILY HISTORY: Significant for cancer. SOCIAL HISTORY: Negative for current tobacco or alcohol use. REVIEW OF SYSTEMS: Sixteen-point review of systems otherwise reviewed and is noncontributory. PHYSICAL EXAMINATION: On examination, the patient is approximately 5 feet, 3 inches, 170 pounds of endomorphic habitus. HEENT exam is nonfocal. She has limited cervical spine motion with positive Spurling's to the right. On examination of her right shoulder, she has a healed anterior scar. She is tender about the anterior glenohumeral joint. She has moderate subacromial crepitus. Active range of motion forward elevation 70 degrees, external rotation with the arm side 10 degrees, internal rotation to the buttock. Passively, I am able to forward elevate her to 95 degrees. Motor strength is 3+ over 5 for external rotation with arm at side, 4 minus over 5 for abduction. Impingement test, Neer test, and Speed test are positive. Her distal neurovascular exam otherwise appears intact in the right upper extremity. X-rays of the right shoulder obtained in the office show severe right rotator cuff arthropathy. The humeral head to acromial distance appears diminished. Previous acromial and distal clavicular resection are noted. IMPRESSION: 1. Severe right rotator cuff arthropathy. 2. History of cervical radiculopathy. 3. History of total knee arthroplasty with chronic infection on suppressive antibiotics. 4. History of renal disease. RECOMMENDATIONS: I talked to the patient and her family at length regarding her condition along with treatment options. At this point, her symptoms are quite severe despite conservative measures. She opts to proceed with surgery. She understands the inherent risks. She underwent preoperative medical evaluation along with clearance by her infectious disease specialist. We will continue on her prophylactic antibiotics. MMODL / IJN: [id number] /
[~2018-08-05 06:33] MED LIST: ACETAMINOPHEN TAB 500 MG TAB PO ONE; DEXAMETHASONE SOD PHOSPHATE 10 MG/ML 1 ML VIAL IV ONE; HYDROmorphone 0.5 MG/0.5 ML SYRINGE IVP PRN; LIDOCAINE 1% 20 ML VIAL (10MG/ML) FOR IV START INTRADERMA PRN; MELOXICAM 7.5 MG TAB PO ONE; MIDAZOLAM 2 MG/2 ML VIAL IV PRN; ONDANSETRON 4 MG/2 ML VIAL IVP ONE; SCOPOLAMINE 1.5MG/72HR PATCH TRANSDERM ONE; TRANEXAMIC ACID 1,000 MG in SODIUM CHLORIDE 0.9% 100 ML IVPB ONE; ceFAZolin IN SWFI 2 GM/20 ML SYRINGE IVP ONE
[2018-08-05 07:40] LABS: Glucose,Whole Blood 94 mg/dL (75-99)
--- NOTE | 2018-08-05 07:54 | P.PN ---
Progress Note - Text Progress Note Date: 08/05/18 Plan- We will plan to proceed with right reverse shoulder arthroplasty. Risks and benefits were discussed at length.
[2018-08-05] MEDS: LACTATED RINGERS 1,000 ML IV SCH (07:55)
[2018-08-05] MEDS ORDERED: GLYCOPYRROLATE 0.2 MG/ML 2 ML VIAL ONE (08:04)
[2018-08-05] MEDS ORDERED: ROCURONIUM BROMIDE 10 MG/ML 10 ML VIAL IV ONE (08:04)
[2018-08-05] MEDS ORDERED: WATER FOR INJECTION, STERILE 10 ML VIAL IV ONE (08:04)
[2018-08-05] MEDS ORDERED: TRANEXAMIC ACID 1,000 MG/10 ML VIAL ONE (08:04)
[2018-08-05] MEDS ORDERED: NEOSTIGMINE 1 MG/ML 10 ML VIAL ONE (08:04)
[2018-08-05] MEDS ORDERED: LIDOCAINE 1% INJ 10MG/ML (20 ML MDV) ONE (08:04)
[2018-08-05] MEDS ORDERED: SODIUM CHLORIDE 0.9% 100 ML BAG ONE (08:04)
[2018-08-05] MEDS ORDERED: fentaNYL (PF) 50 MCG/ML 2 ML AMP ONE (08:04)
[2018-08-05] MEDS ORDERED: ePHEDrine SULFATE/0.9% NACL/PF 50 MG/5 ML SYRINGE IV ONE (08:04)
[2018-08-05] MEDS ORDERED: MIDAZOLAM 2 MG/2 ML VIAL ONE (08:04)
[2018-08-05] MEDS ORDERED: PROPOFOL 10 MG/ML 20 ML VIAL IV ONE (08:04)
[2018-08-05] MEDS ORDERED: PHENYLEPHRINE-0.9% NACL SYG 1 MG/10 ML SYRINGE ONE (08:04)
[2018-08-05] MEDS ORDERED: ceFAZolin 3,000 MG in SODIUM CHLORIDE 0.9% IRRIGATIO 3,000 ML IRRIGATION ONE (08:44)
[2018-08-05] MEDS ORDERED: LACTATED RINGERS 1,000 ML IV ONE (09:50)
[2018-08-05] MEDS ORDERED: SENNOSIDES-DOCUSATE SODIUM 1 EACH TAB PO PRN (10:15)
[2018-08-05] MEDS ORDERED: ONDANSETRON 4 MG/2 ML VIAL IVP PRN (10:15)
[2018-08-05] MEDS ORDERED: HYDROmorphone 0.5 MG/0.5 ML SYRINGE IVP PRN (10:15)
[2018-08-05] MEDS ORDERED: HYDROcodone/APAP 5-325MG 1 EACH TAB PO PRN (10:15)
[2018-08-05] MEDS ORDERED: ACETAMINOPHEN TAB 325 MG TAB PO PRN (10:20)
--- NOTE | 2018-08-05 10:39 | P.OP ---
Date of Procedure: 08/05/18 Preoperative Diagnosis: Severe right rotator cuff arthropathy Postoperative Diagnosis: Same Procedure(s) Performed: Right reverse total shoulder arthroplasty Implants: Depuy Delta Xtend size 10 humeral stem, size 1 eccentric epiphysis, 38 mm +6 articular surface, 38 mm standard metaglene/baseplate Anesthesia: EV[facility], [facility] Surgeon: Brennan Miller Animal Trapper #1: Drew Wall Estimated Blood Loss (ml): 350 Pathology: other (Humeral head) Condition: stable Disposition: PACU Indications for Procedure: The patient's an 83-year-old female who presents with progressive right shoulder pain secondary to severe rotator cuff arthropathy/osteoarthrosis despite conservative measures. A discussion of the risks and benefits of operative intervention versus continued conservative measures was made with the patient and her family. She opted to proceed. Operative risks to include infection, neurovascular injury, fracture, loosening, instability/dislocation, and possible need for subsequent procedures was discussed. Informed consent was obtained. Operative Findings: As below Description of Procedure: The patient was brought to the operating room, and after induction of general anesthesia was placed in a beachchair position. The bony prominences were appropriately padded. I examined the right shoulder. There was moderate lack of passive forward elevation and external rotation. The right upper extremity was prepped and draped in normal fashion. The bony outlines the coracoid process, distal clavicle, and acromion were outlined with a skin marker. A 12 cm deltopectoral incision was made lateral to the coracoid process. Skin was incised sharply. Subcutaneous tissues were divided bluntly. Electrocautery was used for hemostasis. The cephalic vein was identified and gently retracted laterally with the deltoid. The deltopectoral was bluntly developed. Subdeltoid adhesions were then released. The self-retaining retractor was placed. The conjoined tendon was retracted medially and the deltoid laterally. The biceps was identified. Its sheath was opened. A biceps tenotomy was performed along the remaining tendon did retract distally. Pseudocapsule was excised. The head was then exposed. The shoulder was dislocated. A starting hole was made in line with the humeral shaft. The canal was reamed by hand up to size 10. There was good distal chatter. The cutting guide was then placed. I planned on 20 of retroversion. The humeral head cut was then made. The bone was removed in one fragment. Residual inferomedial osteophytes were removed flush with the [place] cortical bone. Attention was then paid towards preparing the glenoid. An anterior and posterior retractors placed. The labrum was released from the 6:00 to 12 o'clock position. Remaining biceps was removed as well. A guidepin was placed in the inferior aspect of the glenoid with the guide slightly tilting inferior. The reamer was used down to a bleeding bony surface. The central peg hole was drilled. The standard baseplate was inserted with good purchase. Inferior, superior, anterior and posterior locking screws the appropriate length were placed. Good purchase was obtained. The 38mm glenosphere was inserted over a guidewire. This was fully seated. Care was taken to avoid any soft tissue interposition. Attention was then paid towards preparing the proximal humerus. The appropriate broach was placed and 20 of retroversion and was fully seated. An eccentric size 1 epiphyseal reamer was utilized. A size 10 stem with a size 1 epiphysis was placed and 20 of retroversion. Trial reduction was obtained with a 38 mm +6 articular surface. The shoulder was taken through range of motion. He was felt to be stable in flexion and extension with internal and external rotation. I felt there was adequate confucianist of soft tissue tension judging off the conjoined tendon. The shoulder was gently dislocated. The trial components were then removed. The final size 12 press-fit stem along with a size 1 epiphysis was fully seated. There was good rotational stability. The 38 mm +6 articular surface was impacted. The shoulder again was gently reduced and taken through range of motion. Again it was felt to be stable in all planes. Pulsatile lavage was utilized. The subscapularis was a attached to the lesser tuberosity with #2 Ethibond suture. The deltopectoral interval was closed with interrupted 2-0 Vicryl sutures. The skin was reapproximated with 3-0 subcuticular Prolene suture. Steri-Strips were applied. A sterile dressing was applied. A sling was placed. The patient was awoken from general anesthesia and transferred to recovery room in good condition. Blood loss was estimated at 350 mL. No complications were incurred. Sponge and needle counts were correct at the end the case. Andrzej HIGGINBOTHAM assisted during the major components of the case to include exposure, glenoid and humeral preparation, implantation, and closure.
[2018-08-05 11:46] VITALS: BMI 28.5
--- NOTE | 2018-08-05 11:48 | XR ---
EXAMINATION TYPE: XR shoulder limited RT DATE OF EXAM: 08/05/2018 COMPARISON: NONE HISTORY: Postop TECHNIQUE: One view submitted FINDINGS: Postsurgical change appears in near-anatomic alignment. Suggestion of a surgical drain tubi ng. Soft tissue edema and emphysema noted. IMPRESSION: Postoperative change in near anatomic alignment
[2018-08-05] MEDS ORDERED: BENZOCAINE/MENTHOL LOZENG 1 EACH LOZENGE MUCOUS MEM PRN (14:39)
[2018-08-05] MEDS: ceFAZolin IN SWFI 2 GM/20 ML SYRINGE IVP SCH (15:01)
--- NOTE | 2018-08-05 19:32 | P.CONS ---
History of Present Illness - Reason for Consult Consult date: 08/05/18 Medical management Requesting physician: Brennan Miller - Chief Complaint Medical management - History of Present Illness 83-year-old female with PMH of diabetes mellitus, hyperlipidemia, history of septic arthritis in the left knee 3 years ago presents to [facility] right reverse total shoulder arthroplasty. [facility] has been consulted for medical management of this patient. Patient was seen and examined. No acute events overnight. Patient reports complete numbness in her right upper extremity. States that the numbness is wearing off in her fingertips. Patient reports a history of septic arthritis after knee replacement 3 years ago that is currently being treated with doxycycline. Patient states that she was unable to urinate after surgery show she had a catheter inserted. No bowel movement as of now, no passing gas either. She denies any headache, lower extremity edema, nausea, vomiting, cough, chest pain, shortness of breath, dizziness. Review of Systems Pertinent positives and negatives as discussed in HPI, a complete review of systems was performed and all other systems are negative. Past Medical History Past Medical History: Diabetes Mellitus, Deep Vein Thrombosis (DVT), GERD/Reflux, Osteoarthritis (OA), Renal Disease, Skin Disorder Additional Past Medical History / Comment(s): DVT years ago in leg, decreased kidney function-sees kidney dr. foreman 6 months, recent shingles right arm-dried & healed per her loan funder, takes daily antibiotic due to chronic infection in knee replacement joint, pinched nerve right side of neck History of Any Multi-Drug Resistant Organisms: Other MDRO Year Discovered:: 2017 MDRO Source:: e-coli in knee Past Surgical History: Appendectomy, Back Surgery, Cholecystectomy, Hysterectomy, Joint Replacement Additional Past Surgical History / Comment(s): bilateral shoulder, bilateral carpal tunnel, left knee replaced x3, lower back fusion Past Anesthesia/Blood Transfusion Reactions: Motion Sickness, Postoperative Nausea & Vomiting (PONV) Past Psychological History: No Psychological Hx Reported Smoking Status: Never smoker Past Alcohol Use History: None Reported Past Drug Use History: None Reported - Past Family History Mother Family Medical History: Unable to Obtain Medications and Allergies Home Medications Medication Instructions Recorded Confirmed Type Aspirin 81 mg PO HS 03/16/17 08/05/18 History Glucosamine/Chondr Paulino A Sod [Osteo 1 tab PO DAILY 03/16/17 08/05/18 History Bi-Flex Caplet] Magnesium Chloride [Mag64] 64 mg PO BID@0900,1800 03/16/17 08/05/18 History Simvastatin [Zocor] 20 mg PO HS 03/16/17 08/05/18 History Biotin 10,000 mcg PO DAILY@1800 12/16/17 08/05/18 History Doxycycline Hyclate 100 mg PO BID 12/16/17 08/05/18 History Glimepiride [Amaryl] 1 mg PO DAILY 12/16/17 08/05/18 History Multivitamins, Thera [Multivitamin 1 tab PO DAILY 12/16/17 08/05/18 History (formulary)] Omeprazole [PriLOSEC] 20 mg PO DAILY 12/16/17 08/05/18 History Celecoxib [CeleBREX] 200 mg PO DAILY 08/04/18 08/05/18 History Allergies Allergy/AdvReac Type Severity Reaction Status Date / Time ciprofloxacin [From Cipro] Allergy Rash/Hives Verified 08/05/18 10:12 nitrofurantoin Allergy Unknown Verified 08/05/18 10:12 Penicillins Allergy Rash/Hives Verified 08/05/18 10:12 latex AdvReac Rash/Hives Verified 08/05/18 10:12 Physical Exam Vitals: Vital Signs Temp Pulse Pulse Resp BP Pulse Ox 08/05/18 13:45 71 134/74 08/05/18 13:30 76 122/71 08/05/18 13:15 67 134/80 08/05/18 13:00 73 127/84 08/05/18 12:45 74 131/66 100 08/05/18 12:30 62 138/79 98 08/05/18 12:15 65 131/79 99 08/05/18 12:00 66 128/77 97 08/05/18 11:45 65 121/74 97 08/05/18 11:40 66 18 121/74 97 08/05/18 11:00 71 16 119/57 94 L 08/05/18 10:45 68 16 141/61 95 08/05/18 10:30 97 F L 91 16 117/55 94 L 08/05/18 07:10 97.8 F 70 18 166/75 99 Intake and Output 08/05/18 08/05/18 08/05/18 06:59 14:59 22:59 Intake Total 1691 240 Output Total 350 500 Balance 1341 -260 Intake: IV 1301 Intake, IV Titration 150 Amount Lactated Ringers 1,000 ml 150 @ 0 mls/hr IV .[facility] Rx#:[id number] Oral 240 240 Output: Urine 500 Straight 500 Estimated Blood Loss 350 General: [non toxic], [no distress], [appears at stated age] Derm: [warm], [dry] Head: [atraumatic], [normocephalic], [symmetric] Eyes: [EOMI], [no lid lag], [anicteric sclera] Mouth: [no lip lesion], [mucus membranes moist] Cardiovascular: [S1S2 reg], [no murmur], [positive DP pulse bilateral] Lungs: [CTA bilateral], [no rhonchi, no rales] , [no accessory muscle use] Abdominal: [soft], [ nontender to palpation], [no guarding], [no appreciable organomegaly] Ext: [no gross muscle atrophy], [no edema], [no contractures], [right shoulder dressing clean dry and intact] Neuro: [no focal neuro deficits] Psych: [Alert], [oriented], [appropriate affect] Assessment and Plan Assessment: Assessment and Plan Diabetes mellitus Hyperlipidemia History of septic arthritis Urinary retention Severe right rotator cuff arthropathy status post right reverse total shoulder arthroplasty POD 0 [id number] glucose 94. Plans: Insulin sliding scale. Regular Accu-Cheks. Hypoglycemic precautions. Plans: Continue Zocor. Plans: Continue doxycycline. Plans: Intermittent straight cath. Motivate to urinate. Plans: Management as per orthopedic surgery. Adequate pain management. Follow PT and OT recommendations. Thank you for this consult. Please call with any additional questions.
[2018-08-05] MEDS: ATORVASTATIN 10 MG TAB PO SCH (20:37)
[2018-08-05] MEDS: ASPIRIN 81 MG PO SCH (20:37)
[2018-08-05] MEDS: DOXYCYCLINE 100 MG CAP PO SCH (20:37)
[2018-08-05 22:22] LABS: Glucose,Whole Blood 349 mg/dL (75-99)
[2018-08-05] MEDS: INSULIN ASPART (NovoLOG) 100 UNIT/ML VIAL SQ SCH (22:41)
[2018-08-06] MEDS: ceFAZolin IN SWFI 2 GM/20 ML SYRINGE IVP SCH (00:48)
--- NOTE | 2018-08-06 01:25 | P.CONS ---
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 She had a snippy and progressive pain to her right shoulder and she was becoming very dependent on the help of her because of her worsening status. however is elderly and is not able to help a consequently she remitted to having right reverse shoulder arthroplasty to regain her independence. Review of Systems HEENT:Denies headache or acute visual change. Denies sinus or mouth discomforts. Denies neck stiffness or pain. Denies significant oral cavity pain. Denies difficulty on swallowing. Lungs: Denies significant shortness of breath, cough, sputum production, or hemoptysis. Cardiovascular: Denies significant shortness of breath, chest pain, chest wall pain, orthopnea, dyspnea on exertion, syncope Gastrointestinal:Denies nausea, vomiting, diarrhea, constipation, hematemesis, melena, hematochezia. No no significant change of bowel habit noticed. Musculoskeletal:chronic and severe musculoskeletalPain from her severe arthritis. She has chronic pain in the left leg from her prior arthroplasty site. She is now status post surgery and is without severe pain to the right shoulder from the block. Skin: Denies new rash or lesions. No new ulcers or wounds are related.. Neuro: Denies headache or visual change. Denies any new onset weakness or difficulty with ambulation. Denies falls or seizures. Psychiatric:Denies anxiety or depression. Endocrine: fatigue weight is stable Past Medical History Past Medical History: Diabetes Mellitus, Deep Vein Thrombosis (DVT), GERD/Reflux, Osteoarthritis (OA), Renal Disease, Skin Disorder Additional Past Medical History / Comment(s): DVT years ago in leg, decreased kidney function-sees kidney dr. 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 Retired. Nonsmoker. No animals. . No recent travel Smoking Status: Never smoker Past Alcohol Use History: None Reported Past Drug Use History: None Reported - Past Family History Mother Family Medical History: Unable to Obtain Medications and Allergies Home Medications and Allergies Comment(s): Current Medications Acetaminophen (Tylenol Tab) 650 mg PO Q6HR PRN PRN Reason: Fever and/ or MILD Pain Hydrocodone Bitart/Acetaminophen ([place] 5-325) 1 each PO Q6HR PRN PRN Reason: Pain Scale 1 to 5 Last Admin: 08/05/18 21:53 Dose: 1 each Documented by: Hydrocodone Bitart/Acetaminophen ([place] 5-325) 2 each PO Q6HR PRN PRN Reason: Pain Scale 6 to 10 Aspirin (Aspirin) 81 mg PO BID [facility] Last Admin: 08/05/18 20:37 Dose: 81 mg Documented by: Atorvastatin Calcium (Lipitor) 10 mg PO HS [facility] Last Admin: 08/05/18 20:37 Dose: Not Given Documented by: Benzocaine/Menthol (Cepacol Lozenge) 1 each MUCOUS MEM Q6HR PRN PRN Reason: Sore Throat Last Admin: 08/05/18 15:00 Dose: 1 each Documented by: Doxycycline Monohydrate (Vibramycin) 100 mg PO BID@0700,2000 [facility] Last Admin: 08/05/18 20:37 Dose: 100 mg Documented by: Hydromorphone HCl (Dilaudid) 0.5 mg IVP Q3HR PRN PRN Reason: Pain Scale 4 to 6 Last Admin: 08/05/18 22:43 Dose: 0.5 mg Documented by: Lactated Ringer's (Lactated Ringers) 1,000 mls @ 20 mls/hr IV .Q24H [facility] Last Admin: 08/05/18 07:55 Dose: 1,000 mls Documented by: Insulin Aspart (Novolog) 0 unit SQ [facility]; Protocol Last Admin: 08/05/18 22:41 Dose: 6 unit Documented by: Lidocaine HCl (.Xylocaine 1% Inj (10mg/Ml) For Iv Start) 0.1 ml INTRADERMA PER PROTOCOL PRN PRN Reason: IV Start Magnesium Oxide (Mag-Ox) 400 mg PO BID@0900,1800 [facility] Midazolam HCl (Versed) 2 mg IV ONCE PRN PRN Reason: Anxiety Stop: 08/06/18 05:25 Last Admin: 08/05/18 07:48 Dose: 2 mg Documented by: Multivitamins (Theragran) 1 each PO DAILY [facility] Ondansetron HCl (Zofran) 4 mg IVP DAILY PRN PRN Reason: Nausea And Vomiting Pantoprazole Sodium (Protonix) 40 mg PO AC-BRKFST [facility] Senna/Docusate Sodium (Senokot-S) 2 each PO HS PRN PRN Reason: Constipation Home Medications Medication Instructions Recorded Confirmed Type Aspirin 81 mg PO HS 03/16/17 08/05/18 History Glucosamine/Chondr Paulino A Sod [Osteo 1 tab PO DAILY 03/16/17 08/05/18 History Bi-Flex Caplet] Magnesium Chloride [Mag64] 64 mg PO BID@0900,1800 03/16/17 08/05/18 History Simvastatin [Zocor] 20 mg PO HS 03/16/17 08/05/18 History Biotin 10,000 mcg PO DAILY@1800 12/16/17 08/05/18 History Doxycycline Hyclate 100 mg PO BID 12/16/17 08/05/18 History Glimepiride [Amaryl] 1 mg PO DAILY 12/16/17 08/05/18 History Multivitamins, Thera [Multivitamin 1 tab PO DAILY 12/16/17 08/05/18 History (formulary)] Omeprazole [PriLOSEC] 20 mg PO DAILY 12/16/17 08/05/18 History Celecoxib [CeleBREX] 200 mg PO DAILY 08/04/18 08/05/18 History Allergies Allergy/AdvReac Type Severity Reaction Status Date / Time ciprofloxacin [From Cipro] Allergy Rash/Hives Verified 08/05/18 10:12 nitrofurantoin Allergy Unknown Verified 08/05/18 10:12 Penicillins Allergy Rash/Hives Verified 08/05/18 10:12 latex AdvReac Rash/Hives Verified 08/05/18 10:12 Physical Exam Vitals: Vital Signs Temp Pulse Pulse Resp BP Pulse Ox 08/05/18 19:50 97.9 F 64 16 133/68 95 08/05/18 13:45 71 134/74 08/05/18 13:30 76 122/71 08/05/18 13:15 67 134/80 08/05/18 13:00 73 127/84 08/05/18 12:45 74 131/66 100 08/05/18 12:30 62 138/79 98 08/05/18 12:15 65 131/79 99 08/05/18 12:00 66 128/77 97 08/05/18 11:45 65 121/74 97 08/05/18 11:40 66 18 121/74 97 08/05/18 11:00 71 16 119/57 94 L 08/05/18 10:45 68 16 141/61 95 08/05/18 10:30 97 F L 91 16 117/55 94 L 08/05/18 07:10 97.8 F 70 18 166/75 99 Intake and Output 08/05/18 08/05/18 08/06/18 14:59 22:59 06:59 Intake Total 1691 720 Output Total 350 500 Balance 1341 220 Intake: IV 1301 Intake, IV Titration 150 Amount Lactated Ringers 1,000 ml 150 @ 0 mls/hr IV .[facility] ONE Rx#:[id number] Oral 240 720 Output: Urine 500 Straight 500 Estimated Blood Loss 350 HEENT: Anicteric conjunctiva are pink and moist nasal mucosa grossly intact without significant lesions, there is no thrush. Neck: The neck is supple without significant lymphadenopathy or thyromegaly. Lungs: Good bilateral air entry without significant crackles or wheezing. There is no significant bronchial sounds. There is no egophony or dullness. Heart: Regular rate and rhythm with an audible S1-S2, no S3 no S4. There is no significant murmur click or rub, PMI was nondisplaced. Abdomen: Positive bowel sounds soft and nontender without palpable masses or organomegaly. There was no guarding or rebound. Extremities: Right arm in sling from the right reverse total shoulder arthroplasty. Left knee without new acute changes but does have chronic joint complaints of the lower extremities Neuro: Awake alert oriented to person place and time. There are no acute new gross focal sensory motor deficits. Results Labs: Abnormal Lab Results - Last 24 Hours (Table) 08/05/18 Range/Units 22:11 POC Glucose (mg/dL) 349 H (75-99) mg/dL Assessment and Plan (1) Shoulder pain, right Current Visit: No Status: Acute Code(s): M25.511 - PAIN IN RIGHT SHOULDER SNOMED Code(s): 63362429 (2) History of infection of total joint prosthesis of knee Narrative/Plan: Patient is now status post of the right reverse total shoulder arthroplasty. She is instructed that as the nerve block resolves to take any medications to avoid severe misery. When her surgical prophylaxis for the right total shoulder has completed she should go back to her doxycycline 100 mg orally twice per day this is lifelong suppressive therapy regarding that prior left total knee arthroplasty infection. Current Visit: Yes Status: Acute Code(s): Z87.39 - PERSONAL HISTORY OF DISEASES OF THE MS SYS AND CONN TISS SNOMED Code(s): 620778261
[2018-08-06] MEDS: HYDROcodone/APAP 5-325MG 1 EACH TAB PO PRN ×4 (03:13→23:49)
[2018-08-06] MEDS: LACTATED RINGERS 1,000 ML IV SCH (05:26)
--- NOTE | 2018-08-06 06:42 | P.ANPRN ---
Procedure Note - Anesthesia - Nerve Block Performed Right Interscalene Single Time Out Performed: Yes Date of Procedure: 08/05/18 Procedure Start Time: 07:48 Procedure Stop Time: 07:52 Location of Patient Procedure: PreOp Indication: Acute Post-Operative Pain, Requested by physician Sedation Type: Sedate with meaningful contact maintained Preparation: Sterile Prep Position: Supine Needle Types: Pajunk Needle Gauge: 21 Technique: Ultrasound (Ropivacaine 0.5% 30 mL plus dexamethasone 4 mg) Blood Aspirated: No Pain Paresthesia on Injection Noted: No Resistance on Injection: Normal Events: Uneventful and Well Tolerated
[2018-08-06 07:13] LABS: Glucose,Whole Blood 247 mg/dL (75-99)
[2018-08-06] MEDS ORDERED: INSULIN ASPART (NovoLOG) 100 UNIT/ML VIAL SQ SCH (07:30)
[2018-08-06] MEDS: MULTIVITAMINS, THERA 1 EACH TAB PO SCH (07:51)
[2018-08-06] MEDS: ASPIRIN 81 MG PO SCH ×2 (07:51→22:01)
[2018-08-06] MEDS: PANTOPRAZOLE 40 MG TABLET PO SCH (07:51)
[2018-08-06] MEDS: INSULIN ASPART (NovoLOG) 100 UNIT/ML VIAL SQ SCH ×4 (07:51→22:02)
[2018-08-06] MEDS: MAGNESIUM OXIDE 400 MG TAB PO SCH ×2 (07:51→17:22)
[2018-08-06] MEDS: DOXYCYCLINE 100 MG CAP PO SCH ×2 (08:25→22:01)
[2018-08-06 09:37] LABS: Anisocytosis Slight; Basophils % (A) 0 %; Eosinophils % (A) 0 %; HCT 34.3 % (34.0-46.0); Lymphocytes # (A) 1.4 k/uL (1.0-4.8); Lymphocytes % (A) 8 %; MCH 30.6 pg (25.0-35.0); MCV 95.5 fL (80.0-100.0); Mean Platelet Volume 7.4; Monocytes # (A) 0.6 k/uL (0-1.0); Monocytes % (A) 4 %; Neutrophils % (A) 88 %; Platelet Count 180 k/uL (150-450); RBC 3.59 m/uL (3.80-5.40); RDW 16.1 % (11.5-15.5); WBC 17.2 k/uL (3.8-10.6)
--- NOTE | 2018-08-06 10:58 | P.PN ---
Subjective Progress Note Date: 08/06/18 Principal diagnosis: s/p reverse right total shoulder arthroplasty Patient evaluated at bedside today, she is resting comfortably in a chair. Her pain is well-controlled. She is utilizing arm sling. She did have difficulty urinating yesterday, there is a urinary catheter was placed last night. Denies any chest pain or shortness of breath Objective - Vital Signs Vital signs: Vital Signs Temp 98.2 F 08/06/18 07:00 Pulse 75 08/06/18 07:00 Resp 16 08/06/18 07:00 BP 109/62 08/06/18 07:00 Pulse Ox 91 L 08/06/18 07:00 Intake & Output 08/05/18 08/06/18 08/06/18 18:59 06:59 18:59 Intake Total 1931 960 840 Output Total 695 947 0250 Balance 1081 310 -360 Intake: IV 1301 Intake, IV Titration 150 Amount Lactated Ringers 1,000 ml 150 @ 0 mls/hr IV .[employer] ONE Rx#:[id number] Oral 480 960 840 Output: Urine 020 798 6914 Straight 500 Uretheral (Young) 650 Estimated Blood Loss 350 - Exam Right upper extremity: Main postoperative bandages removed, stairs are all in good position and condition, no active drainage. Bruising present on the medial and anterior aspect of the lower arm. Radial pulses 2+, sensation to light touch is intact almost extremity, she does have some tingling noted in the small finger - Labs CBC & Chem 7: 08/06/18 08:29 Labs: Abnormal Lab Results - Last 24 Hours (Table) 08/05/18 08/06/18 08/06/18 Range/Units 22:11 07:01 08:29 WBC 17.2 H (3.8-10.6) k/uL RBC 3.59 L (3.80-5.40) m/uL Hgb 11.0 L (11.4-16.0) gm/dL RDW 16.1 H (11.5-15.5) % Neutrophils # 15.0 H (1.3-7.7) k/uL POC Glucose (mg/dL) 349 H 247 H (75-99) mg/dL Assessment and Plan Plan: Assessment: 1. Postop day 1 status post reverse right total shoulder arthroplasty 2. Urinary retention Plan: Pain control, continue current medication GI and DVT prophylaxis, continue aspirin 81 mg twice a day Continue use of arm sling/ice the extremity Other medical surgery nurse and recommendations Discussed with nursing catheter removal, we will plan for later this afternoon Plan for discharge when able to urinate, hopefully tomorrow Time with Patient: Less than 30
[2018-08-06 12:02] LABS: Glucose,Whole Blood 171 mg/dL (75-99)
--- NOTE | 2018-08-06 16:34 | P.PN ---
Subjective Progress Note Date: 08/06/18 Principal diagnosis: Right shoulder pain Patient was seen and examined. No acute events overnight. Patient reports resolution of her right upper extremity numbness, only at the fingertips now. Patient complains of 6 out of 10 severity pain in the right shoulder relieved with [place]. Patient states that she has not been able to urinate, had a Young catheter inserted yesterday which was pulled out just now. She denies any fever or chills. No nausea or vomiting. She denies any chest pain, Shortness of breath or palpitations. Looking for to going home. Objective - Vital Signs Vital signs: Vital Signs Temp 98 F 08/06/18 14:57 Pulse 68 08/06/18 14:57 Resp 16 08/06/18 14:57 BP 107/61 08/06/18 14:57 Pulse Ox 93 L 08/06/18 14:57 Intake & Output 08/05/18 08/06/18 08/06/18 18:59 06:59 18:59 Intake Total 1809 089 5054 Output Total 948 487 7352 Balance 1081 310 -1424 Intake: IV 1301 Intake, IV Titration 150 Amount Lactated Ringers 1,000 ml 150 @ 0 mls/hr IV .[employer] ONE Rx#:[id number] Oral 025 541 9371 Output: Urine 816 195 9364 Straight 500 Uretheral (Young) 650 600 Estimated Blood Loss 350 Other: Voiding Method Indwelling Catheter - Exam General: [non toxic], [no distress], [appears at stated age] Derm: [warm], [dry] Head: [atraumatic], [normocephalic], [symmetric] Eyes: [EOMI], [no lid lag], [anicteric sclera] Mouth: [no lip lesion], [mucus membranes moist] Cardiovascular: [S1S2 reg], [no murmur], [positive DP pulse bilateral] Lungs: [CTA bilateral], [no rhonchi, no rales] , [no accessory muscle use] Abdominal: [soft], [ nontender to palpation], [no guarding], [no appreciable organomegaly] Ext: [no gross muscle atrophy], [no edema], [no contractures], [right shoulder dressing clean dry and intact] Neuro: [no focal neuro deficits] Psych: [Alert], [oriented], [appropriate affect] - Labs CBC & Chem 7: 08/06/18 08:29 Labs: Abnormal Lab Results - Last 24 Hours (Table) 08/05/18 08/06/18 08/06/18 Range/Units 22:11 07:01 08:29 WBC 17.2 H (3.8-10.6) k/uL RBC 3.59 L (3.80-5.40) m/uL Hgb 11.0 L (11.4-16.0) gm/dL RDW 16.1 H (11.5-15.5) % Neutrophils # 15.0 H (1.3-7.7) k/uL POC Glucose (mg/dL) 349 H 247 H (75-99) mg/dL 08/06/18 Range/Units 11:46 WBC (3.8-10.6) k/uL RBC (3.80-5.40) m/uL Hgb (11.4-16.0) gm/dL RDW (11.5-15.5) % Neutrophils # (1.3-7.7) k/uL POC Glucose (mg/dL) 171 H (75-99) mg/dL Assessment and Plan Assessment: Assessment and Plan Diabetes mellitus Hyperlipidemia History of septic arthritis Urinary retention Severe right rotator cuff arthropathy status post right reverse total shoulder arthroplasty POD 1 [id number] glucose 171. Plans: Insulin sliding scale. Regular Accu-Cheks. Hypoglycemic precautions. Plans: Continue Zocor. Plans: Continue doxycycline. ID is following. Plans: Young catheter taken out. Patient motivated to urinate overnight. Plans: Management as per orthopedic surgery. Adequate pain management. Follow PT and OT recommendations. Plans for DC tomorrow if patient is able to urinate.
[2018-08-06 16:55] LABS: Glucose,Whole Blood 188 mg/dL (75-99)
[2018-08-06 21:30] LABS: Glucose,Whole Blood 207 mg/dL (75-99)
[2018-08-06] MEDS: ATORVASTATIN 10 MG TAB PO SCH (22:02)
[2018-08-07] MEDS: LACTATED RINGERS 1,000 ML IV SCH (05:50)
[2018-08-07] MEDS: INSULIN ASPART (NovoLOG) 100 UNIT/ML VIAL SQ SCH ×2 (07:10→15:24)
[2018-08-07] MEDS: PANTOPRAZOLE 40 MG TABLET PO SCH (07:10)
[2018-08-07] MEDS: DOXYCYCLINE 100 MG CAP PO SCH (07:10)
[2018-08-07 07:13] LABS: Glucose,Whole Blood 123 mg/dL (75-99)
[2018-08-07] MEDS: MAGNESIUM OXIDE 400 MG TAB PO SCH (07:19)
[2018-08-07] MEDS: ASPIRIN 81 MG PO SCH (07:19)
[2018-08-07] MEDS: MULTIVITAMINS, THERA 1 EACH TAB PO SCH (07:19)
[2018-08-07] MEDS: HYDROcodone/APAP 5-325MG 1 EACH TAB PO PRN ×2 (07:20→13:40)
[2018-08-07 07:57] VITALS: BP 144/70; PULSE 58; RESP 16; TEMP 98.2
[2018-08-07 12:09] LABS: Glucose,Whole Blood 131 mg/dL (75-99)
--- NOTE | 2018-08-07 12:14 | P.PN ---
Subjective Progress Note Date: 08/07/18 Principal diagnosis: s/p reverse right total shoulder arthroplasty Patient evaluated at bedside today, she is resting comfortably in a chair. Her pain is well-controlled. She is utilizing arm sling. Urinary catheter was removed last night, she is urinating fine at this time. Denies any chest pain or shortness of breath Objective - Vital Signs Vital signs: Vital Signs Temp 98.2 F 08/07/18 07:27 Pulse 58 L 08/07/18 07:27 Resp 16 08/07/18 07:27 BP 144/70 08/07/18 07:27 Pulse Ox 95 08/07/18 07:27 Intake & Output 08/06/18 08/07/18 08/07/18 18:59 06:59 18:59 Intake Total 1812 560 Output Total 3200 Balance -1388 560 Intake: Oral 1812 560 Output: Urine 3200 Uretheral (Young) 600 Other: Voiding Method Indwelling Catheter Toilet # Voids 1 4 - Exam Right upper extremity: Incision is clean, dry and intact. Bruising present on the medial and anterior aspect of the lower arm. Radial pulses 2+, sensation to light touch is intact almost extremity, she does have some tingling noted in the small finger - Labs CBC & Chem 7: 08/06/18 08:29 Labs: Abnormal Lab Results - Last 24 Hours (Table) 08/06/18 08/06/18 08/07/18 Range/Units 16:43 21:19 07:01 POC Glucose (mg/dL) 188 H 207 H 123 H (75-99) mg/dL 08/07/18 Range/Units 11:56 POC Glucose (mg/dL) 131 H (75-99) mg/dL Assessment and Plan Plan: Assessment: 1. Postop day #2 status post reverse right total shoulder arthroplasty Plan: Pain control, plan for discharge and 5 mg/325 mg GI and DVT prophylaxis, continue aspirin 81 mg twice a day Continue use of arm sling/ice the extremity Other medical office asst and recommendations Plan discharge home today Time with Patient: Less than 30
--- NOTE | 2018-08-07 12:20 | P.DS ---
Providers Date of admission: 08/05/18 06:33 Expected date of discharge: 08/07/18 Attending physician: Brennan Miller Consults: 08/05/18 10:15 Consult Physician Routine Consulting Provider: Liseth Hart Consult Reason/Comments: medical management Do you want consulting provider notified?: Yes 08/05/18 10:19 Consult Physician Routine Consulting Provider: [place] Reason/Comments: previous total joint infection Do you want consulting provider notified?: Yes Primary care physician: Lilian Starks MD Hospital Course: Date of admission: 08/05/2018 Date of discharge: 08/07/2018 Admission diagnosis: Status post reverse right total shoulder arthroplasty Discharge diagnosis: Same Attending physician: Dr. Miller Surgical procedures: Reverse right total shoulder arthroplasty Brief history: Patient is a 83-year-old female with a history of severe right shoulder rotator cuff arthropathy. At this point patient has failed conservative treatment measures and has opted to proceed with a elective reverse right total shoulder arthroplasty. Hospital course: Details of patient's surgery can be found in operative report. Patient tolerated the procedure well and was subsequently transported to orthopedic floor. Patient's orthopeidc and medical care was provided daily. Patient had daily laboratory tests performed for evaluation of overall blood c ounts. Patient had daily physical therapy to include strengthening range of motion as well as education with walker ambulation. Patient was treated with aspirin for their postoperative DVT prophylaxis during their inpatient stay. Patient was noted to have a relatively uneventful postoperative course. Patient reported satisfactory pain control with oral pain medications by postoperative day 0. Patient showed satisfactory progress with physical therapy. Patient moved steadily through the program and had no difficulty meeting the goals by postoperative day 2. Given patient's otherwise satisfactory course and having met physical therapy goals, plan is to discharge patient home on postoperative day 2. Discharge condition/disposition: Patient will be discharged home in stable condition. Discharge medications: Instructions are given on resumption of patient's normal daily medications per primary care recommendation, in addition patient will be prescribed [place] 5 mg/325 mg, aspirin 81 mg. Discharge instructions: 1. Wound care and infection precautions, keep incision dry and covered while showering, no lotions, creams, moisturizers. No soaking, tubs, pools, hottubs. Do not scrub over the incision. 2. Ice and elevate when necessary. Do not exceed 20 minutes per hour with ice pack. 3. Utilize compression sleeve until seen at first follow up appointment. 4. Pain meds and anticoagulants per prescription. 5. Pain medication has potential to cause constipation. Increase oral fluid and fiber intake. Contact primary care provider if you have not had a bowel movement within 48 hours after discharge 6. Follow up in office at 2 weeks postop with Andrzej Wall PA-C 7. Follow up with your primary care doctor 7-10 days after discharge. 8. Contact [facility] with any questions, . Procedures: Reverse right total shoulder arthroplasty Patient Condition at Discharge: Good Plan - Discharge Summary Discharge Rx Participant: No New Discharge Prescriptions: New Aspirin [Adult Low Dose Aspirin EC] 81 mg PO BID #60 tablet. Hydrocodone/Acetaminophen [[place] 5-325] 1 - 2 each PO Q6HR PRN #40 tab PRN Reason: Pain No Action Simvastatin [Zocor] 20 mg PO HS Magnesium Chloride [Mag64] 64 mg PO BID@0900,1800 Glucosamine/Chondr Paulino A Sod [Osteo Bi-Flex Caplet] 1 tab PO DAILY Biotin 10,000 mcg PO DAILY@1800 Omeprazole [PriLOSEC] 20 mg PO DAILY Multivitamins, Thera [Multivitamin (formulary)] 1 tab PO DAILY Glimepiride [Amaryl] 1 mg PO DAILY Doxycycline Hyclate 100 mg PO BID Celecoxib [CeleBREX] 200 mg PO DAILY Discharge Medication List Glucosamine/Chondr Paulino A Sod [Osteo Bi-Flex Caplet] 1 tab PO DAILY 03/16/17 [History] Magnesium Chloride [Mag64] 64 mg PO BID@0900,1800 03/16/17 [History] Simvastatin [Zocor] 20 mg PO HS 03/16/17 [History] Biotin 10,000 mcg PO DAILY@1800 12/16/17 [History] Doxycycline Hyclate 100 mg PO BID 12/16/17 [History] Glimepiride [Amaryl] 1 mg PO DAILY 12/16/17 [History] Multivitamins, Thera [Multivitamin (formulary)] 1 tab PO DAILY 12/16/17 [History] Omeprazole [PriLOSEC] 20 mg PO DAILY 12/16/17 [History] Celecoxib [CeleBREX] 200 mg PO DAILY 08/04/18 [History] Aspirin [Adult Low Dose Aspirin EC] 81 mg PO BID #60 tablet. 08/07/18 [Rx] Hydrocodone/Acetaminophen [[place] 5-325] 1 - 2 each PO Q6HR PRN #40 tab 08/07/18 [Rx] Follow up Appointment(s)/Referral(s): Drew Wall PAC [[facility] [employer]] - 2 Weeks Activity/Diet/Wound Care/Special Instructions: Discharge instructions: 1. Okay to shower, keep incision covered and dry 2. Utilize arm sling 3. Basic elbow exercises are okay 4. Pain medication as needed 5. Aspirin 81 mg twice a day for 2 weeks 6. Ice the shoulder 7. Contact [facility] with any questions Discharge Disposition: HOME WITH HOME HEALTH SERVICES
--- NOTE | 2018-08-07 14:03 | CDI ---
Documentation Clarification Form Date: 08/07/2018 1:43:19 PM From: Shelia Veras RN CCDS Admit Date: 08/05/2018 6:33:00 AM Patient Name: Petra Carranza Visit Number: [id number] Discharge Date: ATTENTION: The Clinical Documentation Specialists (CDI) and [facility] Coding Staff appreciate your assistance in clarifying documentation. Please respond to the clarification below the line at the bottom and electronically sign. The CDI & [facility] Coding staff will review the response and follow-up if needed. Please note: Queries are made part of the Legal Health Record. If you have any questions, please contact the author of this message via ITS. Dr. Brennan Miller Urinary Retention is documented in your Progress note 08/06/2018 Patients Admitting Diagnosis: Severe right rotator cuff arthropathy Post-Operative Diagnosis: Severe right rotator cuff arthropathy Procedure performed: Right reverse total shoulder arthroplasy History/Risk Factors: 83 year old female presented for elective Shoulder arthroplasty. Medical History DM, Gerd, DVT, Clinical Indicators: Jnekins Catheter insertion no urine out put on 08/05; 08/06 straight catheterization 500cc, jenkins catheter 650cc/h d/c jenkins, 08/07/2018 4 voids Treatment: Jenkins Catheter Insertion. 08/05/2018 Consults: Internal Medicine In order to accurately reflect this patients severity of illness, please clarify if urinary retention_is the result of the surgical procedure? * Yes * No * Other, please specify * Unable to determine (Last Revision: May 2017) MTDD
== END 2018-08-07 16:36 | disposition home or self-care (01) | DRG 483 ==
LOC: 2ORMAIN 06:33 → EDSTATUS 08:00 → 4SSUR 10:10
PROVIDERS: ADMIT Orthopaedic Surgery; ATTEND Orthopaedic Surgery
PROC: 0RRJ00Z Replacement of Right Shoulder Joint with Reverse Ball and Socket Synthetic Substitute, Open Approach (ICD-10-PCS; principal; 2018-08-05 08:00)
DX: M19.011 Primary osteoarthritis, right shoulder (principal); I45.2 Bifascicular block; E78.5 Hyperlipidemia, unspecified; K21.9 Gastro-esophageal reflux disease without esophagitis; E66.9 Obesity, unspecified; R33.9 Retention of urine, unspecified; M51.16 Intervertebral disc disorders with radiculopathy, lumbar region; I12.9 Hypertensive chronic kidney disease with stage 1 through stage 4 chronic kidney disease, or unspecified chronic kidney disease; E11.22 Type 2 diabetes mellitus with diabetic chronic kidney disease; N18.3 Chronic kidney disease, stage 3 (moderate); M47.812 Spondylosis without myelopathy or radiculopathy, cervical region; G89.29 Other chronic pain; E55.9 Vitamin D deficiency, unspecified; Z79.1 Long term (current) use of non-steroidal anti-inflammatories (NSAID); Z79.82 Long term (current) use of aspirin; Z79.84 Long term (current) use of oral hypoglycemic drugs; Z79.2 Long term (current) use of antibiotics; Z79.899 Other long term (current) drug therapy; Z68.28 Body mass index [BMI] 28.0-28.9, adult; Z88.0 Allergy status to penicillin; Z88.8 Allergy status to other drugs, medicaments and biological substances; Z88.1 Allergy status to other antibiotic agents; Z91.040 Latex allergy status; Z66 Do not resuscitate; Z96.652 Presence of left artificial knee joint; Z98.1 Arthrodesis status; Z90.710 Acquired absence of both cervix and uterus; Z87.440 Personal history of urinary (tract) infections; Z86.718 Personal history of other venous thrombosis and embolism; Z90.49 Acquired absence of other specified parts of digestive tract; Z83.3 Family history of diabetes mellitus; Z82.5 Family history of asthma and other chronic lower respiratory diseases
CPT/HCPCS: 64415; 85025; 88300

== ENCOUNTER 2018-08-10 17:39 | Emergency (ER) | payer MEDICARE, BC ==
[2018-08-10 17:50] VITALS: BP 112/63; PULSE 78; RESP 18; TEMP 98.4
[2018-08-10] MEDS ORDERED: MORPHINE SULFATE 4 MG/ML SYRINGE IVP STA (18:28)
[2018-08-10] MEDS ORDERED: SODIUM CHLORIDE 0.9% 1,000 ML IV ONE (18:28)
--- NOTE | 2018-08-10 19:01 | ED ---
General Adult HPI - General Source: patient, family, RN notes reviewed, old records reviewed Mode of arrival: wheelchair Limitations: no limitations <Rajwinder Stanley - Last Filed: 08/11/18 11:06> <Nancy Garcia - Last Filed: 08/12/18 06:03> - General Chief complaint: Recheck/Abnormal Lab/Rx Stated complaint: Post Op Rotator cuff/Pain med reaction Time Seen by Provider: 08/10/18 17:53 - History of Present Illness Initial comments: 83-year-old female presented today complaining of dizziness nausea, and wors ening right shoulder pain after right rotator cuff surgery repair. She was discharged 3 days ago and states that since taking the [place] she's been feeling dizzy and lightheaded and she her pain well. patient states that she also has increased swelling and bruising to her right arm. patient has been wearing a sling. she has not seen therapy as of this time. patient denies any fevers or chills. (Rajwinder Stanley) - Related Data Home Medications Medication Instructions Recorded Confirmed Glucosamine/Chondr Paulino A Sod [Osteo 1 tab PO DAILY 03/16/17 08/10/18 Bi-Flex Caplet] Magnesium Chloride [Mag64] 64 mg PO BID@0900,1800 03/16/17 08/10/18 Simvastatin [Zocor] 20 mg PO HS 03/16/17 08/10/18 Biotin 10,000 mcg PO DAILY@1800 12/16/17 08/10/18 Glimepiride [Amaryl] 1 mg PO DAILY 12/16/17 08/10/18 Multivitamins, Thera [Multivitamin 1 tab PO DAILY 12/16/17 08/10/18 (formulary)] Celecoxib [CeleBREX] 200 mg PO DAILY 08/04/18 08/10/18 Previous Rx's Medication Instructions Recorded Aspirin [Adult Low Dose Aspirin EC] 81 mg PO BID #60 tablet. 08/07/18 Hydrocodone/Acetaminophen [[place] 1 - 2 each PO Q6HR PRN #40 tab 08/07/18 5-325] Ibuprofen [Motrin] 600 mg PO Q6HR PRN #30 tab 08/10/18 Ondansetron Odt [Zofran Odt] 4 mg PO Q8HR PRN #20 tab 08/10/18 traMADol HCL [Ultram] 50 mg PO Q4HR PRN 3 Days #18 tab 08/10/18 Allergies Allergy/AdvReac Type Severity Reaction Status Date / Time ciprofloxacin [From Cipro] Allergy Rash/Hives Verified 08/10/18 18:45 nitrofurantoin Allergy Unknown Verified 08/10/18 18:45 Penicillins Allergy Rash/Hives Verified 08/10/18 18:45 pineapple Allergy Rash/Hives Verified 08/10/18 18:45 latex AdvReac Rash/Hives Verified 08/10/18 18:45 Review of Systems ROS Other: All systems not noted in ROS Statement are negative. <Rajwinder Stanley - Last Filed: 08/11/18 11:06> ROS Other: All systems not noted in ROS Statement are negative. <Nancy Garcia - Last Filed: 08/12/18 06:03> ROS Statement: Those systems with pertinent positive or pertinent negative responses have been documented in the HPI. Past Medical History Past Medical History: Diabetes Mellitus, Deep Vein Thrombosis (DVT), GERD/Reflux, Osteoarthritis (OA), Renal Disease, Skin Disorder Additional Past Medical History / Comment(s): DVT years ago in leg, decreased kidney function-sees kidney dr. 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, pinched nerve right side of neck History of Any Multi-Drug Resistant Organisms: Other MDRO Date of last positivie culture/infection: 2016 MDRO Source:: e-coli in knee Past Surgical History: Appendectomy, Back Surgery, Cholecystectomy, Hysterectomy, Joint Replacement Additional Past Surgical History / Comment(s): bilateral shoulder, bilateral carpal tunnel, left knee replaced x3, lower back fusion Past Anesthesia/Blood Transfusion Reactions: Motion Sickness, Postoperative Nausea & Vomiting (PONV) Past Psychological History: No Psychological Hx Reported Smoking Status: Never smoker Past Alcohol Use History: None Reported Past Drug Use History: None Reported - Past Family History Mother Family Medical History: Unable to Obtain <Rajwinder Stanley - Last Filed: 08/11/18 11:06> General Exam Limitations: no limitations General appearance: alert, in no apparent distress Head exam: Present: atraumatic, normocephalic, normal inspection Eye exam: Present: normal appearance, PERRL, EOMI. Absent: scleral icterus, conjunctival injection, periorbital swelling ENT exam: Present: normal exam, mucous membranes moist Neck exam: Present: normal inspection. Absent: tenderness, meningismus, lymphadenopathy Respiratory exam: Present: normal lung sounds bilaterally. Absent: respiratory distress, wheezes, rales, rhonchi, stridor Cardiovascular Exam: Present: regular rate, normal rhythm, normal heart sounds. Absent: systolic murmur, diastolic murmur, rubs, gallop, clicks GI/Abdominal exam: Present: soft, normal bowel sounds. Absent: distended, tenderness, guarding, rebound, rigid Extremities exam: Present: full ROM, normal capillary refill. Absent: normal inspection, tenderness, pedal edema, joint swelling, calf tenderness Right Shoulder Exam: Present: normal inspection (incisino site appears well, no drainage. ) Upper Arm exam: Present: normal inspection, full ROM Elbow exam: Present: tenderness, swelling (over antecubital fossa. ), ecchymosis. Absent: normal inspection Forearm Wrist exam: Present: full ROM, swelling. Absent: normal inspection Neuro motor exam: Present: wrist extension intact Vascular: Present: normal capillary refill Back exam: Present: normal inspection Neurological exam: Present: alert, oriented X3, CN II-XII intact Psychiatric exam: Present: normal affect, normal mood <Rajwinder Stanley - Last Filed: 08/11/18 11:06> - General Exam Comments Initial Comments: 83 year old female, appears in pain. Alert and oriented. Here with . (Rajwinder Stanley) Course Vital Signs 08/10/18 17:46 Temperature 98.4 F Pulse Rate 78 Respiratory 18 Rate Blood Pressure 112/63 O2 Sat by Pulse 98 Oximetry Medical Decision Making - Lab Data Result diagrams: 08/10/18 18:57 08/10/18 18:57 - Radiology Data Radiology results: report reviewed <Rajwinder Stanley - Last Filed: 08/11/18 11:06> - Lab Data Result diagrams: 08/10/18 18:57 08/10/18 18:57 <Nancy Garcia - Last Filed: 08/12/18 06:03> - Medical Decision Making 83 year old female complains of worsening right arm pain S/P rotator cuff repair, worsening swelling, and medication reaction to norco. She reports Ale[place] is making her light headaed and foggy, and causing headaches. Labs obtained within normal limits, EKG shows no acute changes. Patient has brusing and swelling noted to arm, US completed and shows basilical superficial throbosis. Discussed warm compress and motrin for treatement. Discussed trying ultram instead of norco for patient medication reaction. She is agreeable. Discussed strict return parameters and she sees PCP tomorrow. (Rajwinder Stanley) I was available for consultation in the emergency department. The history and physical exam were done by the midlevel provider. I was consulted for this patient's care. I reviewed the case with the midlevel provider and based on their presentation of the patient, I agree with the assessment, medical decision making and plan of care as documented. Chart was dictated using [employer] dictation software. Attempts were made to correct any dictation errors however some typographical errors may persist. (Nancy Garcia) - Lab Data Lab Results 08/10/18 08/10/18 08/10/18 Range/Units 18:57 18:57 18:57 WBC 7.7 (3.8-10.6) k/uL RBC 3.44 L (3.80-5.40) m/uL Hgb 10.5 L (11.4-16.0) gm/dL Hct 33.2 L (34.0-46.0) % MCV 96.2 (80.0-100.0) fL MCH 30.6 (25.0-35.0) pg MCHC 31.8 (31.0-37.0) g/dL RDW 15.3 (11.5-15.5) % Plt Count 225 (150-450) k/uL Neutrophils % 48 % Lymphocytes % 35 % Monocytes % 8 % Eosinophils % 5 % Basophils % 1 % Neutrophils # 3.7 (1.3-7.7) k/uL Lymphocytes # 2.7 (1.0-4.8) k/uL Monocytes # 0.6 (0-1.0) k/uL Eosinophils # 0.4 (0-0.7) k/uL Basophils # 0.0 (0-0.2) k/uL PT 9.8 (9.0-12.0) sec INR 0.9 (<1.2) APTT 22.9 (22.0-30.0) sec Sodium 140 (137-145) mmol/L Potassium 5.1 (3.5-5.1) mmol/L Chloride 109 H (98-107) mmol/L Carbon Dioxide 24 (22-30) mmol/L Anion Gap 7 mmol/L BUN 34 H (7-17) mg/dL Creatinine 1.25 H (0.52-1.04) mg/dL Est GFR (CKD-EPI)AfAm 47 (>60 ml/min/1.73 sqM) Est GFR (CKD-EPI)NonAf 41 (>60 ml/min/1.73 sqM) Glucose 133 H (74-99) mg/dL Calcium 9.1 (8.4-10.2) mg/dL Total Bilirubin 0.5 (0.2-1.3) mg/dL AST 35 (14-36) U/L ALT 18 (9-52) U/L Alkaline Phosphatase 80 (38-126) U/L Troponin I (0.000-0.034) ng/mL Total Protein 5.9 L (6.3-8.2) g/dL Albumin 3.5 (3.5-5.0) g/dL 08/10/18 Range/Units 18:57 WBC (3.8-10.6) k/uL RBC (3.80-5.40) m/uL Hgb (11.4-16.0) gm/dL Hct (34.0-46.0) % MCV (80.0-100.0) fL MCH (25.0-35.0) pg MCHC (31.0-37.0) g/dL RDW (11.5-15.5) % Plt Count (150-450) k/uL Neutrophils % % Lymphocytes % % Monocytes % % Eosinophils % % Basophils % % Neutrophils # (1.3-7.7) k/uL Lymphocytes # (1.0-4.8) k/uL Monocytes # (0-1.0) k/uL Eosinophils # (0-0.7) k/uL Basophils # (0-0.2) k/uL PT (9.0-12.0) sec INR (<1.2) APTT (22.0-30.0) sec Sodium (137-145) mmol/L Potassium (3.5-5.1) mmol/L Chloride (98-107) mmol/L Carbon Dioxide (22-30) mmol/L Anion Gap mmol/L BUN (7-17) mg/dL Creatinine (0.52-1.04) mg/dL Est GFR (CKD-EPI)AfAm (>60 ml/min/1.73 sqM) Est GFR (CKD-EPI)NonAf (>60 ml/min/1.73 sqM) Glucose (74-99) mg/dL Calcium (8.4-10.2) mg/dL Total Bilirubin (0.2-1.3) mg/dL AST (14-36) U/L ALT (9-52) U/L Alkaline Phosphatase (38-126) U/L Troponin I <0.012 (0.000-0.034) ng/mL Total Protein (6.3-8.2) g/dL Albumin (3.5-5.0) g/dL 08/10/18 19:02 EKG performed at 1845 shows normal sinus rhythm right bundle branch block. Possible lateral infarct age undetermined. Ventricular rate of [address] interval is 170 ms. QS duration 182 ms. QT QTc is 42/434 ms. (Rajwinder Stanley) - Radiology Data Ultrasound was negative for DVT in right arm. Superficial vein thrombus in the basilic vein. Limited exam. (Rajwinder Stanley) Disposition Is patient prescribed a controlled substance at d/c from ED?: No Time of Disposition: 21:30 <Rajwinder Stanley - Last Filed: 08/11/18 11:06> <Nancy Garcia - Last Filed: 08/12/18 06:03> Clinical Impression: Shoulder pain, right, Superficial thrombophlebitis, S/P rotator cuff repair, Medication reaction Disposition: HOME SELF-CARE Condition: Good Instructions (If sedation given, give patient instructions): Superficial Thrombophlebitis (ED) Additional Instructions: Patient should apply warm compresses over the area of redness and swelling. Follow-up with your primary care physician tomorrow. Return to emergency department if any alarming signs or symptoms occur. Prescriptions: Ibuprofen [Motrin] 600 mg PO Q6HR PRN #30 tab PRN Reason: Pain traMADol HCL [Ultram] 50 mg PO Q4HR PRN 3 Days #18 tab PRN Reason: Pain Ondansetron Odt [Zofran Odt] 4 mg PO Q8HR PRN #20 tab PRN Reason: Nausea Referrals: Lilian Starks MD [Primary Care Provider] - 1-2 days
[2018-08-10 19:17] LABS: Basophils % (A) 1 %; Eosinophils # (A) 0.4 k/uL (0-0.7); Eosinophils % (A) 5 %; HCT 33.2 % (34.0-46.0); HGB 10.5 gm/dL (11.4-16.0); Lymphocytes # (A) 2.7 k/uL (1.0-4.8); Lymphocytes % (A) 35 %; MCH 30.6 pg (25.0-35.0); MCHC 31.8 g/dL (31.0-37.0); MCV 96.2 fL (80.0-100.0); Mean Platelet Volume 6.6; Monocytes # (A) 0.6 k/uL (0-1.0); Monocytes % (A) 8 %; Neutrophils # (A) 3.7 k/uL (1.3-7.7); Neutrophils % (A) 48 %; Platelet Count 225 k/uL (150-450); RBC 3.44 m/uL (3.80-5.40); RDW 15.3 % (11.5-15.5); WBC 7.7 k/uL (3.8-10.6)
[2018-08-10 19:26] LABS: Albumin 3.5 g/dL (3.5-5.0); Calcium 9.1 mg/dL (8.4-10.2); INR 0.9 (<1.2); Partial Thromboplastin Time 22.9 sec (22.0-30.0); Potassium 5.1 mmol/L (3.5-5.1); Prothrombin Time 9.8 sec (9.0-12.0); Total Bilirubin 0.5 mg/dL (0.2-1.3); Total Protein 5.9 g/dL (6.3-8.2)
--- NOTE | 2018-08-10 20:40 | US ---
EXAMINATION TYPE: US venous doppler duplex UE RT DATE OF EXAM: 08/10/2018 COMPARISON: NONE CLINICAL HISTORY: Pain. right rotator cuff surgery 5 days ago, patient in extreme pain, shaking and t hreatening to leave, has limited to no mobility of that arm with a bandage covering upper portion. H/ O dvt in leg prior SIDE PERFORMED: right Right Arm: Very limited study shows internal echoes within right basilic with no flow detected, deepe r vessels that were seen appeared patent but very limited in assessment due to reasons stated above IMPRESSION: No evidence of deep venous thrombosis in the right arm. There is superficial vein thrombosis in the b asilic vein. Limited exam.
[2018-08-10] MEDS ORDERED: traMADol 50 MG STARTER PACK 3 TAB BTL PO STA (21:33)
== END 2018-08-10 21:56 | disposition home or self-care (01) ==
LOC: EC 17:39
DX: I80.8 Phlebitis and thrombophlebitis of other sites (principal); T39.1X5A Adverse effect of 4-Aminophenol derivatives, initial encounter; T40.2X5A Adverse effect of other opioids, initial encounter; E11.9 Type 2 diabetes mellitus without complications; M19.90 Unspecified osteoarthritis, unspecified site; Z98.890 Other specified postprocedural states; Z96.652 Presence of left artificial knee joint; Z79.84 Long term (current) use of oral hypoglycemic drugs; Z79.1 Long term (current) use of non-steroidal anti-inflammatories (NSAID); Z79.899 Other long term (current) drug therapy; Z88.1 Allergy status to other antibiotic agents; Z91.018 Allergy to other foods; Z88.0 Allergy status to penicillin; Z91.040 Latex allergy status
CPT/HCPCS: 36415; 93005; 80053; 84484; 85025; 85610; 85730; 93971; 99284; 96374; 96361 ×3; J2270

== ENCOUNTER → 2018-09-25 | Outpatient (CLI) | payer MEDICARE, BC ==
[2018-09-25 15:44] LABS: Basophils % (A) 1 %; Eosinophils # (A) 0.2 k/uL (0-0.7); Eosinophils % (A) 3 %; HCT 37.6 % (34.0-46.0); Lymphocytes # (A) 2.7 k/uL (1.0-4.8); Lymphocytes % (A) 41 %; MCV 96.9 fL (80.0-100.0); Mean Platelet Volume 6.8; Monocytes # (A) 0.4 k/uL (0-1.0); Monocytes % (A) 6 %; Neutrophils # (A) 3.1 k/uL (1.3-7.7); Neutrophils % (A) 48 %; Platelet Count 197 k/uL (150-450); RBC 3.88 m/uL (3.80-5.40); RDW 13.9 % (11.5-15.5); WBC 6.5 k/uL (3.8-10.6)
[2018-09-25 15:49] LABS: Appearance,Urine Clear (Clear); Bilirubin,Urine Negative (Negative); Blood,Urine Negative (Negative); Color,Urine Yellow; Glucose,Urine (UA) Negative (Negative); Ketones,Urine Negative (Negative); Leukocyte Esterase,Urine Negative (Negative); Nitrite,Urine Negative (Negative); Protein,Urine Negative (Negative); Urobilinogen,Urine <2.0 mg/dL (<2.0)
[2018-09-25 23:25] LABS: African American GFR (CKD) 44.6 (60.0-200.0); Anion Gap 7.7 mmol/L (4.00-12.00); BUN/Creat Ratio 20.77 Ratio (12.00-20.00); Calcium 9.5 mg/dL (8.7-10.3); Carbon Dioxide 26.3 mmol/L (21.6-31.8); Phosphorus 4.5 mg/dL (2.4-5.1); Potassium 4.3 mmol/L (3.5-5.5); Uric Acid 5.7 mg/dL (2.9-7.7)
[2018-09-25 23:39] LABS: Iron Saturation 11.94 (12.00-45.00)
[2018-09-25 23:47] LABS: Vitamin D 25 Hydroxy 34.1 ng/mL (30.0-100.0)
[2018-09-26 01:16] LABS: Creatinine,Urine Random 115.7 mg/dL; Total Protein,Urine Random 9.3 mg/dL (0.0-13.5)
== END | disposition home or self-care (01) ==
LOC: LABWHC1 14:46
PROVIDERS: ATTEND Internal Medicine Nephrology
DX: N18.4 Chronic kidney disease, stage 4 (severe) (principal); E55.9 Vitamin D deficiency, unspecified; E21.3 Hyperparathyroidism, unspecified; M10.9 Gout, unspecified; N39.0 Urinary tract infection, site not specified; D63.1 Anemia in chronic kidney disease; R80.9 Proteinuria, unspecified
CPT/HCPCS: 36415; 80048; 81003; 82040; 82306; 82570; 82728; 83540; 83550; 83735; 83970; 84100; 84156; 84550; 85025

== ENCOUNTER → 2018-10-29 | Outpatient (CLI) | payer MEDICARE, BC ==
[2018-10-29 11:18] LABS: Basophils # (A) 0.1 k/uL (0-0.2); Basophils % (A) 1 %; Eosinophils # (A) 0.3 k/uL (0-0.7); Eosinophils % (A) 4 %; HCT 37.4 % (34.0-46.0); HGB 12.1 gm/dL (11.4-16.0); Lymphocytes # (A) 2.3 k/uL (1.0-4.8); Lymphocytes % (A) 35 %; MCH 30.7 pg (25.0-35.0); MCHC 32.3 g/dL (31.0-37.0); MCV 94.8 fL (80.0-100.0); Mean Platelet Volume 7.2; Monocytes # (A) 0.4 k/uL (0-1.0); Monocytes % (A) 6 %; Neutrophils # (A) 3.3 k/uL (1.3-7.7); Neutrophils % (A) 52 %; Platelet Count 201 k/uL (150-450); RBC 3.94 m/uL (3.80-5.40); RDW 14.6 % (11.5-15.5); WBC 6.4 k/uL (3.8-10.6)
[2018-10-29 17:04] LABS: ALT 15 U/L (8-44); AST 26 U/L (13-35); African American GFR (CKD) 37.5 (60.0-200.0); Albumin/Globulin Ratio 2.44 (1.60-3.17); Alkaline Phosphatase 78 U/L (41-126); BUN/Creat Ratio 22.67 Ratio (12.00-20.00); C Reactive Protein <0.4 mg/dL (0.0-0.8); Calcium 9.4 mg/dL (8.7-10.3); Carbon Dioxide 23.4 mmol/L (21.6-31.8); Chloride 111 mmol/L (96-109); Globulin 1.6 g/dL (1.6-3.3); Glucose 59 mg/dL (70-110); Potassium 4.9 mmol/L (3.5-5.5); Sodium 142 mmol/L (135-145); Total Bilirubin 0.4 mg/dL (0.3-1.2); Total Protein 5.5 g/dL (6.2-8.2)
== END | disposition home or self-care (01) ==
LOC: LABWHC1 10:59
PROVIDERS: ATTEND Internal Medicine Infectious Disease
DX: M00.9 Pyogenic arthritis, unspecified (principal); T84.54XA Infection and inflammatory reaction due to internal left knee prosthesis, initial encounter
CPT/HCPCS: 36415; 80053; 85025; 86140

== ENCOUNTER → 2019-01-30 | Outpatient (CLI) | payer MEDICARE, BC ==
[2019-01-30 13:20] LABS: Basophils % (A) 0 %; Eosinophils % (A) 0 %; HCT 40.7 % (34.0-46.0); HGB 13.1 gm/dL (11.4-16.0); Lymphocytes # (A) 1.6 k/uL (1.0-4.8); Lymphocytes % (A) 23 %; MCH 30.3 pg (25.0-35.0); MCHC 32.3 g/dL (31.0-37.0); MCV 93.6 fL (80.0-100.0); Mean Platelet Volume 7.6; Monocytes # (A) 0.5 k/uL (0-1.0); Monocytes % (A) 7 %; Neutrophils # (A) 4.8 k/uL (1.3-7.7); Neutrophils % (A) 68 %; Platelet Count 166 k/uL (150-450); RBC 4.35 m/uL (3.80-5.40); RDW 14.1 % (11.5-15.5)
[2019-01-30 19:18] LABS: Ferritin 20.8 ng/mL (10.0-291.0)
[2019-01-30 20:13] LABS: % Iron Saturation 25.34 (12.00-45.00); African American GFR (CKD) 54.5 (60.0-200.0); Albumin 4.1 g/dL (3.80-4.90); Albumin/Globulin Ratio 2.41 (1.60-3.17); Anion Gap 7.4 mmol/L (4.00-12.00); BUN/Creat Ratio 24.55 Ratio (12.00-20.00); Calcium 9.3 mg/dL (8.7-10.3); Carbon Dioxide 27.6 mmol/L (21.6-31.8); Globulin 1.7 g/dL (1.6-3.3); Potassium 4.6 mmol/L (3.5-5.5); Total Bilirubin 0.5 mg/dL (0.2-1.2); Total Protein 5.8 g/dL (6.2-8.2)
[2019-01-30 21:41] LABS: Hemoglobin A1C 6.8 % (4.0-6.0)
== END | disposition home or self-care (01) ==
LOC: LABWHC1 11:09
PROVIDERS: ATTEND Family Medicine
DX: E78.5 Hyperlipidemia, unspecified (principal); N18.3 Chronic kidney disease, stage 3 (moderate)
CPT/HCPCS: 36415; 80053; 82728; 83036; 83540; 83550; 85025

== ENCOUNTER → 2019-03-23 | Outpatient (CLI) | payer MEDICARE, BC ==
[2019-03-23 13:19] LABS: Appearance,Urine Clear (Clear); Bilirubin,Urine Negative (Negative); Blood,Urine Negative (Negative); Color,Urine Yellow; Glucose,Urine (UA) Negative (Negative); Ketones,Urine Negative (Negative); Leukocyte Esterase,Urine Negative (Negative); Nitrite,Urine Negative (Negative); Protein,Urine Negative (Negative); Specific Gravity,Urine 1.025 (1.001-1.035); Urobilinogen,Urine <2.0 mg/dL (<2.0)
[2019-03-23 13:32] LABS: Basophils # (A) 0.1 k/uL (0-0.2); Basophils % (A) 1 %; Eosinophils % (A) 1 %; HCT 44.2 % (34.0-46.0); HGB 13.8 gm/dL (11.4-16.0); Lymphocytes # (A) 2.4 k/uL (1.0-4.8); Lymphocytes % (A) 26 %; MCHC 31.1 g/dL (31.0-37.0); MCV 96.3 fL (80.0-100.0); Mean Platelet Volume 7.2; Monocytes # (A) 0.6 k/uL (0-1.0); Monocytes % (A) 7 %; Neutrophils % (A) 65 %; Platelet Count 193 k/uL (150-450); RBC 4.59 m/uL (3.80-5.40); RDW 13.7 % (11.5-15.5); WBC 9.3 k/uL (3.8-10.6)
[2019-03-23 21:10] LABS: % Iron Saturation 32.11 (12.00-45.00); African American GFR (CKD) 49.1 (60.0-200.0); Anion Gap 8.4 mmol/L (4.00-12.00); BUN/Creat Ratio 26.67 Ratio (12.00-20.00); Calcium 9.7 mg/dL (8.7-10.3); Carbon Dioxide 26.6 mmol/L (21.6-31.8); Ferritin 15.3 ng/mL (10.0-291.0); Non-African American GFR(CKD) 42.3 (60.0-200.0); Potassium 4.7 mmol/L (3.5-5.5)
== END | disposition home or self-care (01) ==
LOC: LABWHC1 11:34
PROVIDERS: ATTEND Nurse Practitioner Family
DX: N39.0 Urinary tract infection, site not specified (principal); D63.1 Anemia in chronic kidney disease; N18.4 Chronic kidney disease, stage 4 (severe); E55.0 Rickets, active; N25.81 Secondary hyperparathyroidism of renal origin
CPT/HCPCS: 36415; 80048; 81003; 82728; 83540; 83550; 83970; 85025

== ENCOUNTER → 2019-06-29 | Outpatient (CLI) | payer MEDICARE, BC ==
[2019-06-29 10:52] LABS: Basophils % (A) 0 %; Eosinophils # (A) 0.1 k/uL (0-0.7); Eosinophils % (A) 3 %; HCT 41.1 % (34.0-46.0); HGB 12.9 gm/dL (11.4-16.0); Lymphocytes # (A) 1.4 k/uL (1.0-4.8); Lymphocytes % (A) 30 %; MCH 30.1 pg (25.0-35.0); MCHC 31.3 g/dL (31.0-37.0); MCV 96.3 fL (80.0-100.0); Mean Platelet Volume 7.9; Monocytes # (A) 0.4 k/uL (0-1.0); Monocytes % (A) 9 %; Neutrophils # (A) 2.6 k/uL (1.3-7.7); Neutrophils % (A) 55 %; Platelet Count 136 k/uL (150-450); RBC 4.27 m/uL (3.80-5.40); RDW 13.7 % (11.5-15.5); WBC 4.6 k/uL (3.8-10.6)
[2019-06-29 16:47] LABS: ALT 18 U/L (8-44); AST 33 U/L (13-35); African American GFR (CKD) 48.7 (60.0-200.0); Albumin/Globulin Ratio 2.05 (1.60-3.17); Alkaline Phosphatase 76 U/L (41-126); BUN/Creat Ratio 21.67 Ratio (12.00-20.00); C Reactive Protein <0.4 mg/dL (0.0-0.8); Calcium 9.5 mg/dL (8.7-10.3); Carbon Dioxide 25.8 mmol/L (21.6-31.8); Chloride 110 mmol/L (96-109); Globulin 1.9 g/dL (1.6-3.3); Glucose 85 mg/dL (70-110); Non-African American GFR(CKD) 42.1 (60.0-200.0); Potassium 4.9 mmol/L (3.5-5.5); Sodium 145 mmol/L (135-145); Total Bilirubin 0.6 mg/dL (0.3-1.2); Total Protein 5.8 g/dL (6.2-8.2)
== END | disposition home or self-care (01) ==
LOC: LABWHC1 09:31
PROVIDERS: ATTEND Internal Medicine Infectious Disease
DX: M00.9 Pyogenic arthritis, unspecified (principal)
CPT/HCPCS: 36415; 80053; 85025; 86140

== ENCOUNTER → 2019-08-18 | Outpatient (CLI) | payer MEDICARE, BC ==
[2019-08-18 11:15] LABS: Basophils % (A) 1 %; Eosinophils # (A) 0.1 k/uL (0-0.7); Eosinophils % (A) 2 %; HCT 44.2 % (34.0-46.0); Hypochromasia Slight; Lymphocytes # (A) 1.4 k/uL (1.0-4.8); Lymphocytes % (A) 26 %; MCH 31.3 pg (25.0-35.0); MCHC 31.6 g/dL (31.0-37.0); MCV 99.2 fL (80.0-100.0); Mean Platelet Volume 7.4; Monocytes # (A) 0.4 k/uL (0-1.0); Monocytes % (A) 7 %; Neutrophils # (A) 3.3 k/uL (1.3-7.7); Neutrophils % (A) 63 %; Platelet Count 171 k/uL (150-450); RBC 4.45 m/uL (3.80-5.40); WBC 5.3 k/uL (3.8-10.6)
[2019-08-18 11:16] LABS: Appearance,Urine Clear (Clear); Bilirubin,Urine Negative (Negative); Blood,Urine Negative (Negative); Color,Urine Yellow; Glucose,Urine (UA) Negative (Negative); Hyaline Casts,Urine 1 /lpf (0-2); Ketones,Urine Negative (Negative); Leukocyte Esterase,Urine Small (Negative); Mucus,Urine Rare /hpf; Nitrite,Urine Negative (Negative); PH, Urine 6.5 (5.0-8.0); Protein,Urine Negative (Negative); RBC,Urine 1 /hpf (0-5); Specific Gravity,Urine 1.014 (1.001-1.035); Squamous Epithelial Cell,Urine <1 /hpf (0-4); Urobilinogen,Urine <2.0 mg/dL (<2.0); WBC,Urine 5 /hpf (0-5)
[2019-08-18 18:23] LABS: % Iron Saturation 21.38 (12.00-45.00); African American GFR (CKD) 40.5 (60.0-200.0); Anion Gap 4.2 mmol/L (4.00-12.00); BUN/Creat Ratio 18.57 Ratio (12.00-20.00); Calcium 9.2 mg/dL (8.7-10.3); Carbon Dioxide 27.8 mmol/L (21.6-31.8); Non-African American GFR(CKD) 34.9 (60.0-200.0); Potassium 4.3 mmol/L (3.5-5.5)
== END | disposition home or self-care (01) ==
LOC: LABWHC1 08:53
PROVIDERS: ATTEND Nurse Practitioner Family
DX: N18.4 Chronic kidney disease, stage 4 (severe) (principal); E55.9 Vitamin D deficiency, unspecified; N39.0 Urinary tract infection, site not specified; N25.81 Secondary hyperparathyroidism of renal origin; D63.1 Anemia in chronic kidney disease
CPT/HCPCS: 36415; 80048; 81001; 82306; 82728; 83540; 83550; 83970; 85025

== ENCOUNTER → 2020-02-16 | Outpatient (CLI) | payer MEDICARE, BC ==
[2020-02-16 10:24] LABS: Basophils # (A) 0.1 k/uL (0-0.2); Basophils % (A) 1 %; Eosinophils # (A) 0.1 k/uL (0-0.7); Eosinophils % (A) 1 %; HCT 46.5 % (34.0-46.0); HGB 15.2 gm/dL (11.4-16.0); Lymphocytes # (A) 2.3 k/uL (1.0-4.8); Lymphocytes % (A) 25 %; MCHC 32.8 g/dL (31.0-37.0); MCV 97.7 fL (80.0-100.0); Mean Platelet Volume 6.8; Monocytes # (A) 0.4 k/uL (0-1.0); Monocytes % (A) 4 %; Neutrophils % (A) 68 %; Platelet Count 155 k/uL (150-450); RBC 4.76 m/uL (3.80-5.40); RDW 12.8 % (11.5-15.5); WBC 8.9 k/uL (3.8-10.6)
[2020-02-16 11:50] LABS: Appearance,Urine Clear (Clear); Bilirubin,Urine Negative (Negative); Blood,Urine Negative (Negative); Color,Urine Yellow; Glucose,Urine (UA) Negative (Negative); Ketones,Urine Negative (Negative); Leukocyte Esterase,Urine Negative (Negative); Nitrite,Urine Negative (Negative); Protein,Urine Negative (Negative); Specific Gravity,Urine 1.022 (1.001-1.035); Urobilinogen,Urine <2.0 mg/dL (<2.0)
[2020-02-16 16:34] LABS: Hemoglobin A1C 6.3 % (4.0-6.0)
[2020-02-16 20:22] LABS: Ferritin 63.9 ng/mL (10.0-291.0)
[2020-02-17 00:46] LABS: Uric Acid 5.2 mg/dL (2.9-7.7)
[2020-02-17 00:47] LABS: ALT 25 U/L (8-44); AST 24 U/L (13-35); African American GFR (CKD) 48.7 (60.0-200.0); Albumin/Globulin Ratio 2.41 (1.60-3.17); Alkaline Phosphatase 82 U/L (41-126); BUN/Creat Ratio 21.67 Ratio (12.00-20.00); C Reactive Protein <0.4 mg/dL (0.0-0.8); Calcium 9.2 mg/dL (8.7-10.3); Carbon Dioxide 30.1 mmol/L (21.6-31.8); Chloride 106 mmol/L (96-109); Globulin 1.7 g/dL (1.6-3.3); Glucose 82 mg/dL (70-110); Iron 133 ug/dL (50-170); Non-African American GFR(CKD) 42.1 (60.0-200.0); Phosphorus 4.3 mg/dL (2.4-5.1); Potassium 4.6 mmol/L (3.5-5.5); Sodium 141 mmol/L (135-145); Total Bilirubin 0.7 mg/dL (0.2-1.2); Total Iron Binding Capacity 266 ug/dL (228-460); Total Protein 5.8 g/dL (6.2-8.2)
== END | disposition home or self-care (01) ==
LOC: LABWHC1 09:34
PROVIDERS: ATTEND Nurse Practitioner Family
DX: N18.4 Chronic kidney disease, stage 4 (severe) (principal); N39.0 Urinary tract infection, site not specified; D64.9 Anemia, unspecified; M10.9 Gout, unspecified; M00.9 Pyogenic arthritis, unspecified; E11.9 Type 2 diabetes mellitus without complications
CPT/HCPCS: 36415; 80053; 81003; 82728; 83036; 83540; 83550; 83735; 84100; 84550; 85025; 86140

== ENCOUNTER → 2020-06-13 | Outpatient (CLI) | payer MEDICARE, BC ==
[2020-06-13 19:49] LABS: African American GFR (CKD) 48.4 (60.0-200.0); Anion Gap 5.4 mmol/L (4.00-12.00); BUN/Creat Ratio 19.17 Ratio (12.00-20.00); Calcium 9.6 mg/dL (8.7-10.3); Carbon Dioxide 27.6 mmol/L (21.6-31.8); Non-African American GFR(CKD) 41.8 (60.0-200.0); Potassium 4.8 mmol/L (3.5-5.5)
== END | disposition home or self-care (01) ==
LOC: LABWHC1 11:22
PROVIDERS: ATTEND Internal Medicine Cardiovascular Disease
DX: I10 Essential (primary) hypertension (principal)
CPT/HCPCS: 36415; 80048

== ENCOUNTER → 2020-08-16 | Outpatient (CLI) | payer MEDICARE, BC ==
[2020-08-16 15:17] LABS: Creatinine,Urine Random 102.6 mg/dL; Protein/Creatinine Ratio,Urine 0.097
[2020-08-16 15:32] LABS: Appearance,Urine Clear (Clear); Bilirubin,Urine Negative (Negative); Blood,Urine Negative (Negative); Color,Urine Yellow; Glucose,Urine (UA) Negative (Negative); Ketones,Urine Negative (Negative); Leukocyte Esterase,Urine Negative (Negative); Nitrite,Urine Negative (Negative); PH, Urine 5.5 (5.0-8.0); Protein,Urine Negative (Negative); Specific Gravity,Urine 1.019 (1.001-1.035); Urobilinogen,Urine <2.0 mg/dL (<2.0)
[2020-08-16 20:25] LABS: Basophils # (A) 0.04 X 10*3/uL (0.00-0.10); Basophils % (A) 0.4 %; HCT 42.9 % (37.2-46.3); HGB 13.4 g/dL (12.0-15.0); Lymphocytes # (A) 2.48 X 10*3/uL (0.90-5.00); Lymphocytes % (A) 24.8 %; MCHC 31.2 g/dL (32.0-37.0); MCV 99.3 fL (80.0-97.0); Mean Platelet Volume 9.9 fL (9.5-12.2); Neutrophils # (A) 6.67 X 10*3/uL (1.80-7.70); Neutrophils % (A) 66.5 %; Platelet Count 202 X 10*3/uL (140-440); RBC 4.32 X 10*6/uL (4.10-5.20); RDW 12.8 % (11.5-14.5); WBC 10.02 X 10*3/uL (4.50-10.00)
[2020-08-16 21:18] LABS: Ferritin 120.2 ng/mL (10.0-291.0)
[2020-08-16 21:29] LABS: % Iron Saturation 34.04 (12.00-45.00); African American GFR (CKD) 43.9 (60.0-200.0); BUN/Creat Ratio 14.62 Ratio (12.00-20.00); C Reactive Protein <0.4 mg/dL (0.0-0.8); Calcium 9.5 mg/dL (8.7-10.3); Chloride 110 mmol/L (96-109); Glucose 119 mg/dL (70-110); Iron 80 ug/dL (50-170); Magnesium 1.9 mg/dL (1.5-2.4); Non-African American GFR(CKD) 37.9 (60.0-200.0); Potassium 4.9 mmol/L (3.5-5.5); Sodium 142 mmol/L (135-145); Total Iron Binding Capacity 235 ug/dL (228-460); Uric Acid 6.1 mg/dL (2.9-7.7)
[2020-08-16 21:44] LABS: Erythrocyte Sedimentation Rate 7 mm/Hr (0-30)
[2020-08-17 05:39] LABS: Total Bilirubin 0.3 mg/dL (0.2-1.2); Total Protein 5.8 g/dL (6.2-8.2)
== END | disposition home or self-care (01) ==
LOC: LABWHC1 14:33
PROVIDERS: ATTEND Internal Medicine Nephrology
DX: R10.13 Epigastric pain (principal); R11.0 Nausea; N18.4 Chronic kidney disease, stage 4 (severe); E55.9 Vitamin D deficiency, unspecified; N25.81 Secondary hyperparathyroidism of renal origin; M10.9 Gout, unspecified; N39.0 Urinary tract infection, site not specified; D64.9 Anemia, unspecified; R80.9 Proteinuria, unspecified; M00.9 Pyogenic arthritis, unspecified
CPT/HCPCS: 36415; 80048; 81003; 82040; 82247; 82306; 82570; 82728; 83540; 83550; 83690; 83735; 83970; 84075; 84100; 84155; 84156; 84450; 84460; 84550; 85025; 85652; 86140

== ENCOUNTER → 2020-09-14 | Outpatient (CLI) | payer MEDICARE, BC ==
[2020-09-15 02:24] LABS: Anion Gap 10.9 mmol/L (4.00-12.00); BUN/Creat Ratio 13.33 Ratio (12.00-20.00); Calcium 9.2 mg/dL (8.7-10.3); Carbon Dioxide 23.1 mmol/L (21.6-31.8); Non-African American GFR(CKD) 31.9 (60.0-200.0); Potassium 4.9 mmol/L (3.5-5.5)
== END | disposition home or self-care (01) ==
LOC: LABWHC1 11:00
PROVIDERS: ATTEND Nurse Practitioner Family
DX: N18.4 Chronic kidney disease, stage 4 (severe) (principal)
CPT/HCPCS: 36415; 80048

== ENCOUNTER → 2020-12-28 | Outpatient (CLI) | payer MEDICARE, BC ==
--- NOTE | 2020-12-28 12:14 | XR ---
EXAMINATION TYPE: XR knee complete LT DATE OF EXAM: 12/28/2020 COMPARISON: NONE HISTORY: Pain and swelling TECHNIQUE: Three views are submitted. FINDINGS: Postsurgical change with diffuse osteopenia. No acute fracture or dislocation. IMPRESSION: 1. Postsurgical change
[2020-12-28 20:09] LABS: African American GFR (CKD) 43.9 (60.0-200.0); BUN/Creat Ratio 12.69 Ratio (12.00-20.00); Basophils # (A) 0.02 X 10*3/uL (0.00-0.10); Basophils % (A) 0.4 %; Blood Urea Nitrogen 16.5 mg/dL (9.0-27.0); Calcium 9.6 mg/dL (8.7-10.3); Carbon Dioxide 25.3 mmol/L (21.6-31.8); Chloride 105 mmol/L (96-109); Eosinophils # (A) 0.11 X 10*3/uL (0.04-0.35); Eosinophils % (A) 2.1 %; Glucose 85 mg/dL (70-110); HCT 41.8 % (37.2-46.3); HGB 13.1 g/dL (12.0-15.0); Lymphocytes % (A) 35.6 %; MCH 31.2 pg (27.0-32.0); MCHC 31.3 g/dL (32.0-37.0); MCV 99.5 fL (80.0-97.0); Monocytes # (A) 0.63 X 10*3/uL (0.20-1.00); Monocytes % (A) 11.8 %; Neutrophils # (A) 2.66 X 10*3/uL (1.80-7.70); Neutrophils % (A) 49.7 %; Non-African American GFR(CKD) 37.9 (60.0-200.0); Platelet Count 210 X 10*3/uL (140-440); Potassium 4.4 mmol/L (3.5-5.5); RDW 13.2 % (11.5-14.5); Sodium 142 mmol/L (135-145); WBC 5.34 X 10*3/uL (4.50-10.00)
[2020-12-28 20:49] LABS: C Reactive Protein <0.30 mg/dL (0.00-0.80)
[2020-12-28 22:02] LABS: Erythrocyte Sedimentation Rate 11 mm/Hr (0-30)
== END | disposition home or self-care (01) ==
LOC: LABWHC1 11:27
PROVIDERS: ATTEND Internal Medicine Infectious Disease
DX: M00.849 Arthritis due to other bacteria, unspecified hand (principal); M25.562 Pain in left knee
CPT/HCPCS: 36415; 80048; 85025; 85652; 86140

== ENCOUNTER → 2021-02-13 | Outpatient (CLI) | payer MEDICARE, BC ==
[2021-02-13 18:10] LABS: HCT 43.6 % (37.2-46.3); HGB 13.8 g/dL (12.0-15.0); MCH 31.2 pg (27.0-32.0); MCHC 31.7 g/dL (32.0-37.0); MCV 98.6 fL (80.0-97.0); Mean Platelet Volume 10.2 fL (9.5-12.2); Platelet Count 175 X 10*3/uL (140-440); RBC 4.42 X 10*6/uL (4.10-5.20); RDW 12.4 % (11.5-14.5); WBC 5.72 X 10*3/uL (4.50-10.00)
[2021-02-13 20:02] LABS: African American GFR (CKD) 44.8 (60.0-200.0); BUN/Creat Ratio 13.98 Ratio (12.00-20.00); Blood Urea Nitrogen 17.9 mg/dL (9.0-27.0); Calcium 10.1 mg/dL (8.7-10.3); Carbon Dioxide 26.5 mmol/L (20.0-27.5); Chloride 103 mmol/L (96-109); Glucose 102 mg/dL (70-110); Non-African American GFR(CKD) 38.6 (60.0-200.0); Potassium 4.2 mmol/L (3.5-5.5); Sodium 143 mmol/L (135-145)
[2021-02-13 20:17] LABS: C Reactive Protein <0.30 mg/dL (0.00-0.80)
[2021-02-13 20:51] LABS: Erythrocyte Sedimentation Rate 7 mm/Hr (0-30)
== END | disposition home or self-care (01) ==
LOC: LABWHC1 11:14
PROVIDERS: ATTEND Internal Medicine Infectious Disease
DX: M00.849 Arthritis due to other bacteria, unspecified hand (principal)
CPT/HCPCS: 36415; 80048; 85027; 85652; 86140

== ENCOUNTER 2021-05-14 10:21 | Emergency (ER) | payer MEDICARE, BC ==
[2021-05-14 10:32] VITALS: RESP 18; TEMP 98.3
[2021-05-14] MEDS ORDERED: PROPARACAINE 0.5% OPHTH DROPS 15 ML BTL BOTH EYES STA (10:55)
[2021-05-14] MEDS ORDERED: FLUORESCEIN STRIPS 1 MG STRIP BOTH EYES ONE (10:59)
--- NOTE | 2021-05-14 11:01 | ED ---
General Adult HPI - General Chief complaint: Eye Problems Stated complaint: L eye pain Time Seen by Provider: 05/14/21 10:40 Source: patient Mode of arrival: ambulatory Limitations: no limitations - History of Present Illness Initial comments: Dictation was produced using [employer] dictation software. please excuse any grammatical, word or spelling errors. Chief Complaint: 86-year-old female presents emergency department for eyelid pain History of Present Illness: Is a 86-year-old female states she woke up this morning with left lateral canthus pain. She was at the mechanical systems engineer's office recently. She had an eye exam and everything was found to be normal. She even had eyedrops and her pupils were dilated. She was that appointment feeling well. This morning she woke up with some pain in her eye. She denies sensation of foreign body. Denies any changes in her vision. States eye pain is towards the lateral portion of her left lower eyelid The ROS documented in this emergency department record has been reviewed and confirmed by me. Those systems with pertinent positive or negative responses have been documented in the HPI. All other systems are other negative and/or noncontributory. PHYSICAL EXAM: General Impression: Alert and oriented x3, not in acute distress HEENT: Normocephalic atraumatic, extra-ocular movements intact, pupils equal and reactive to light bilaterally, mucous membranes moist. Cardiovascular: Heart regular rate and rhythm Chest: Able to complete full sentences, no retractions, no tachypnea Motor: no focal deficits noted Neurological: CN II-XII grossly intact, no focal motor or sensory deficits noted Skin: Intact with no visualized rashes Psych: Normal affect and mood Eyes: Slight conjunctival injection to the left eye. Pupils equal round reactive bilaterally ED course: 86-year-old female presents to emergency department for left lateral lower eyelid pain. Visual acuity was 20/50 bilaterally. Left eye intraocular pressure was 18. Patient denied any symptoms of the right eye. She does report significant improvement with proparacaine suggesting that her symptoms are localized to the cornea or the conjunctiva. Fluorescein testing showed some uptake towards the lateral sclera. Suspicious for corneal ulcer. Patient has follow-up with the mechanical systems engineer. She states that she has follow-up and that she is told to follow-up within the next 48 hours. Just as and in case patient given information for on-call mechanical systems engineer. Patient given Cipro eyedrops. She mcclain s not work contact lenses. - Related Data Home Medications Medication Instructions Recorded Confirmed Glucosamine/Chondr Paulino A Sod [Osteo 1 tab PO DAILY 03/16/17 08/10/18 Bi-Flex Caplet] Magnesium Chloride [Mag64] 64 mg PO BID@0900,1800 03/16/17 08/10/18 Simvastatin [Zocor] 20 mg PO HS 03/16/17 08/10/18 Biotin 10,000 mcg PO DAILY@1800 12/16/17 08/10/18 Glimepiride [Amaryl] 1 mg PO DAILY 12/16/17 08/10/18 Multivitamins, Thera [Multivitamin 1 tab PO DAILY 12/16/17 08/10/18 (formulary)] Celecoxib [CeleBREX] 200 mg PO DAILY 08/04/18 08/10/18 Previous Rx's Medication Instructions Recorded Aspirin [Adult Low Dose Aspirin EC] 81 mg PO BID #60 tablet. 08/07/18 Hydrocodone/Acetaminophen [[place] 1 - 2 each PO Q6HR PRN #40 tab 08/07/18 5-325] Ibuprofen [Motrin] 600 mg PO Q6HR PRN #30 tab 08/10/18 Ondansetron Odt [Zofran Odt] 4 mg PO Q8HR PRN #20 tab 08/10/18 traMADol HCL [Ultram] 50 mg PO Q4HR PRN 3 Days #18 tab 08/10/18 Moxifloxacin [Vigamox 0.5%] 1 drop LEFT EYE Q1H #3 ml 05/14/21 Allergies Allergy/AdvReac Type Severity Reaction Status Date / Time ciprofloxacin [From Cipro] Allergy Rash/Hives Verified 05/14/21 10:28 nitrofurantoin Allergy Unknown Verified 05/14/21 10:28 Penicillins Allergy Rash/Hives Verified 05/14/21 10:28 pineapple Allergy Rash/Hives Verified 05/14/21 10:28 latex AdvReac Rash/Hives Verified 05/14/21 10:28 Review of Systems ROS Statement: Those systems with pertinent positive or pertinent negative responses have been documented in the HPI. ROS Other: All systems not noted in ROS Statement are negative. Past Medical History Past Medical History: Diabetes Mellitus, Deep Vein Thrombosis (DVT), GERD/Reflux, Osteoarthritis (OA), Renal Disease, Skin Disorder Additional Past Medical History / Comment(s): DVT years ago in leg, decreased kidney function-sees kidney dr. 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, pinched nerve right side of neck History of Any Multi-Drug Resistant Organisms: Other MDRO Date of last positivie culture/infection: 2016 MDRO Source:: e-coli in knee Past Surgical History: Appendectomy, Back Surgery, Cholecystectomy, Hysterect ariadna, Joint Replacement Additional Past Surgical History / Comment(s): bilateral shoulder, bilateral carpal tunnel, left knee replaced x3, lower back fusion Past Anesthesia/Blood Transfusion Reactions: Motion Sickness, Postoperative Nausea & Vomiting (PONV) Past Psychological History: No Psychological Hx Reported Smoking Status: Never smoker Past Alcohol Use History: None Reported Past Drug Use History: None Reported - Past Family History Mother Family Medical History: Unable to Obtain General Exam Limitations: no limitations Course Vital Signs 05/14/21 10:28 Temperature 98.3 F Pulse Rate 75 Respiratory 18 Rate Blood Pressure 117/73 O2 Sat by Pulse 100 Oximetry Disposition Clinical Impression: Eye pain Disposition: HOME SELF-CARE Condition: Fair Instructions (If sedation given, give patient instructions): Eye Pain (ED) Additional Instructions: Is important that you follow-up with the mechanical systems engineer within the next 24-48 hours. Prescriptions: Moxifloxacin [Vigamox 0.5%] 1 drop LEFT EYE Q1H #3 ml Is patient prescribed a controlled substance at d/c from ED?: No Referrals: Sea Curry MD [STAFF PHYSICIAN] - 1-2 days
[2021-05-14 11:31] VITALS: BP 117/75; PULSE 74
== END 2021-05-14 11:32 | disposition home or self-care (01) ==
LOC: EC 10:21
DX: H57.12 Ocular pain, left eye (principal); E11.9 Type 2 diabetes mellitus without complications; Z86.718 Personal history of other venous thrombosis and embolism; Z88.3 Allergy status to other anti-infective agents; Z88.0 Allergy status to penicillin; Z91.018 Allergy to other foods; Z91.040 Latex allergy status
CPT/HCPCS: 99282

== ENCOUNTER 2022-09-17 14:04 | Emergency (ER) | payer MEDICARE, BC ==
[2022-09-17 14:43] VITALS: RESP 16
--- NOTE | 2022-09-17 14:59 | ED ---
General Adult HPI - General Chief complaint: Nausea/Vomiting/Diarrhea Stated complaint: Nausea, vomiting Time Seen by Provider: 09/17/22 14:45 Source: patient Mode of arrival: EMS Limitations: no limitations - History of Present Illness Initial comments: This 87-year-old female with a past medical history including hypertension presented to the emergency department for acute episode of nausea and vomiting. The patient stated that she was at lunch when she had an acute episode of vomiting after she had finished. The patient then walked outside and was having vomiting and a bystander called EMS for her. The patient received 1 L of normal saline fluid as well as 4 mg of Zofran by EMS and on arrival stated that she was completely resolved and did not have any further symptoms at this time. The patient denied any abdominal pain, cramping or current nausea or vomiting. The patient was otherwise resting in bed comfortably. - Related Data Home Medications Medication Instructions Recorded Confirmed Glucosamine/Chondr Paulino A Sod [Osteo 1 tab PO DAILY 03/16/17 08/10/18 Bi-Flex Caplet] Magnesium Chloride [Mag64] 64 mg PO BID@0900,1800 03/16/17 08/10/18 Simvastatin [Zocor] 20 mg PO HS 03/16/17 08/10/18 Biotin 10,000 mcg PO DAILY@1800 12/16/17 08/10/18 Glimepiride [Amaryl] 1 mg PO DAILY 12/16/17 08/10/18 Multivitamins, Thera [Multivitamin 1 tab PO DAILY 12/16/17 08/10/18 (formulary)] Celecoxib [CeleBREX] 200 mg PO DAILY 08/04/18 08/10/18 Previous Rx's Medication Instructions Recorded Aspirin [Adult Low Dose Aspirin EC] 81 mg PO BID #60 tablet. 08/07/18 Hydrocodone/Acetaminophen [[place] 1 - 2 each PO Q6HR PRN #40 tab 08/07/18 5-325] Ibuprofen [Motrin] 600 mg PO Q6HR PRN #30 tab 08/10/18 Ondansetron Odt [Zofran Odt] 4 mg PO Q8HR PRN #20 tab 08/10/18 traMADol HCL [Ultram] 50 mg PO Q4HR PRN 3 Days #18 tab 08/10/18 Moxifloxacin [Vigamox 0.5%] 1 drop LEFT EYE Q1H #3 ml 05/14/21 Meclizine [Antivert] 25 mg PO Q8H PRN 7 Days #21 tab 04/24/22 Ondansetron Odt [Zofran Odt] 4 mg PO Q8HR PRN 7 Days #21 tab 04/24/22 Cyclobenzaprine [Flexeril] 5 mg PO TID #10 tablet 04/30/22 Allergies Allergy/AdvReac Type Severity Reaction Status Date / Time ciprofloxacin [From Cipro] Allergy Rash/Hives Verified 09/17/22 14:17 nitrofurantoin Allergy Unknown Verified 09/17/22 14:17 Penicillins Allergy Rash/Hives Verified 09/17/22 14:17 pineapple Allergy Rash/Hives Verified 09/17/22 14:17 latex AdvReac Rash/Hives Verified 09/17/22 14:17 Review of Systems ROS Statement: Those systems with pertinent positive or pertinent negative responses have been documented in the HPI. ROS Other: All systems not noted in ROS Statement are negative. Past Medical History Past Medical History: Diabetes Mellitus, Deep Vein Thrombosis (DVT), GERD/Reflux, Osteoarthritis (OA), Renal Disease, Skin Disorder Additional Past Medical History / Comment(s): DVT years ago in leg, decreased kidney function-sees kidney dr. 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, pinched nerve right side of neck History of Any Multi-Drug Resistant Organisms: Other MDRO Date of last positivie culture/infection: 2016 MDRO Source:: e-coli in knee Past Surgical History: Appendectomy, Back Surgery, Cholecystectomy, Hysterectomy, Joint Replacement Additional Past Surgical History / Comment(s): bilateral shoulder, bilateral carpal tunnel, left knee replaced x3, lower back fusion Past Anesthesia/Blood Transfusion Reactions: Motion Sickness, Postoperative Nausea & Vomiting (PONV) Past Psychological History: No Psychological Hx Reported Smoking Status: Never smoker Past Alcohol Use History: None Reported Past Drug Use History: None Reported - Past Family History Mother Family Medical History: Unable to Obtain General Exam Limitations: no limitations General appearance: alert, in no apparent distress, obese Head exam: Present: atraumatic, normocephalic, normal inspection Eye exam: Present: normal appearance, PERRL Pupils: Present: normal accommodation ENT exam: Present: normal exam, normal oropharynx, mucous membranes moist Neck exam: Present: normal inspection, full ROM Respiratory exam: Present: normal lung sounds bilaterally Cardiovascular Exam: Present: regular rate, normal rhythm, normal heart sounds GI/Abdominal exam: Present: soft, normal bowel sounds Extremities exam: Present: normal inspection, full ROM Back exam: Present: normal inspection, full ROM Neurological exam: Present: alert, oriented X3, CN II-XII intact Psychiatric exam: Present: normal affect, normal mood Skin exam: Present: warm, dry Course Vital Signs 09/17/22 09/17/22 14:08 14:42 Temperature 98.2 F 98.2 F Pulse Rate 71 73 Respiratory 18 16 Rate Blood Pressure 124/71 102/59 O2 Sat by Pulse 99 97 Oximetry Medical Decision Making - Medical Decision Making Was pt. sent in by a medical professional or institution ([facility]FT[facility], FINANCIAL INSTITUTION MANAGER, urgent care, hospital, or [facility]...) When possible be specific @ -No Did you speak to anyone other than the patient for history (EMS, parent, family, police, friend...)? What history was obtained from this source @ -No Did you review nursing and triage notes (agree or disagree)? Why? @ -I reviewed and agree with nursing and triage notes Were old charts reviewed (outside hosp., previous admission, EMS record, old EKG, old radiological studies, urgent care reports/EKG's, [facility] records)? Report findings @ -No old charts were reviewed Differential Diagnosis (chest pain, altered mental status, abdominal pain women, abdominal pain men, vaginal bleeding, weakness, fever, dyspnea, syncope, headache, dizziness, GI bleed, back pain, seizure, CVA, palpatations, mental health)? @ -Gastroenteritis, food poisoning, acute nausea and vomiting. EKG interpreted by me (3pts min.). @ -None X-rays interpreted by me (1pt min.). @ -None done CT interpreted by me (1pt min.). @ -None done U/S interpreted by me (1pt. min.). @ -None done What testing was considered but not performed or refused? (CT, X-rays, U/S, labs)? Why? @ -Labs as well as possible abdominal CT was considered however the patient refused any workup and wanted to go home. What meds were considered but not given or refused? Why? @ -None Did you discuss the management of the patient with other professionals (professionals i.e. , PA, FINANCIAL INSTITUTION MANAGER, lab, RT, psych nurse, psychiatric social worker supervisor, vp securities, teacher, aoc plans intelligence officer, community case manager)? Give summary @ -No Was smoking cessation discussed for >3mins.? @ -No Was critical care preformed (if so, how long)? @ -No Were there social determinants of health that impacted care today? How? (Homelessness, low income, unemployed, alcoholism, drug addiction, transportation, low edu. Level, literacy, decrease access to med. care, senior care, rehab)? @ -No Was there de-escalation of care discussed even if they declined (Discuss DNR or withdrawal of care, Hospice)? DNR status @ -No What co-morbidities impacted this encounter? (DM, HTN, Smoking, COPD, CAD, Cancer, CVA, ARF, Chemo, Hep., AIDS, mental health diagnosis, sleep apnea, morbid obesity)? @ -Hypertension Was patient admitted / discharged? Hospital course, mention meds given and route, prescriptions, significant lab abnormalities, going to OR and other pertinent info. @ -The patient was seen and evaluated emergency department. Physical exam, the patient was resting in bed without any acute distress. Vital signs were stable. At the time the patient was placed in a bed and evaluated the patient, she stated that she was completely resolved and did not want any further testing. The patient stated that she had no further complaints and would like to be discharged. I did offer laboratory workup and possible abdominal CT for initial abdominal pain but the patient refused. I advised the patient to follow-up with her primary care physician and to report back to the emergency department if her pain or symptoms became acutely worse. The patient was agreeable to this and all of her questions were answered. The patient was discharged home in stable condition. Undiagnosed new problem with uncertain prognosis? @ -No Drug Therapy requiring intensive monitoring for toxicity (Heparin, Nitro, Insulin, Cardizem)? @ -No Were any procedures done? @ -No Diagnosis/symptom? @ -Nausea, vomiting, resolved Acute, or Chronic, or Acute on Chronic? @ -Acute Uncomplicated (without systemic symptoms) or Complicated (systemic symptoms)? @ -Uncomplicated Side effects of treatment? @ -No Exacerbation, Progression, or Severe Exacerbation? @ -No Poses a threat to life or bodily function? How? (Chest pain, [place], [place], pneumonia, PE, COPD, DKA, ARF, appy, cholecystitis, CVA, Diverticulitis, Homicidal, Suicidal, threat to staff... and all critical care pts) @ -No Disposition Clinical Impression: Nausea & vomiting Disposition: HOME SELF-CARE Condition: Stable Instructions (If sedation given, give patient instructions): Acute Nausea and Vomiting (ED) Is patient prescribed a controlled substance at d/c from ED?: No Referrals: Jacobo Jorgensen MD [Primary Care Provider] - 1-2 days Time of Disposition: 14:45
[2022-09-17 15:23] VITALS: BP 105/62; PULSE 82; TEMP 98.1
== END 2022-09-17 15:23 | disposition home or self-care (01) ==
LOC: EC 14:04
DX: R11.2 Nausea with vomiting, unspecified (principal); E11.9 Type 2 diabetes mellitus without complications; M19.90 Unspecified osteoarthritis, unspecified site; Z86.718 Personal history of other venous thrombosis and embolism; Z88.0 Allergy status to penicillin; Z88.1 Allergy status to other antibiotic agents; Z91.040 Latex allergy status; Z91.018 Allergy to other foods; Z88.8 Allergy status to other drugs, medicaments and biological substances; Z90.49 Acquired absence of other specified parts of digestive tract; Z79.84 Long term (current) use of oral hypoglycemic drugs; Z79.899 Other long term (current) drug therapy
CPT/HCPCS: 99284

== ENCOUNTER 2022-09-22 11:13 | Emergency (ER) | payer MEDICARE, BC ==
[2022-09-22 11:17] VITALS: TEMP 98.6
--- NOTE | 2022-09-22 11:57 | ED ---
General Adult HPI - General Chief complaint: Abdominal Pain Stated complaint: Abd pain Time Seen by Provider: 09/22/22 11:33 Source: patient, RN notes reviewed Mode of arrival: ambulatory Limitations: no limitations - History of Present Illness Initial comments: 87-year-old female presents to the emergency department with chief complaint of left-sided flank pain x1 month. Denies dysuria, hematuria. She reports that she was here earlier this week when she had a sharp pain wrap around her abdomen which caused her to have an episode of vomiting. She was brought in by ambulance and declined all recommended workup at that time. She denies associated nausea, vomiting, diarrhea, fever, chills at this time. - Related Data Home Medications Medication Instructions Recorded Confirmed Glucosamine/Chondr Paulino A Sod [Osteo 1 tab PO DAILY 03/16/17 08/10/18 Bi-Flex Caplet] Magnesium Chloride [Mag64] 64 mg PO BID@0900,1800 03/16/17 08/10/18 Simvastatin [Zocor] 20 mg PO HS 03/16/17 08/10/18 Biotin 10,000 mcg PO DAILY@1800 12/16/17 08/10/18 Glimepiride [Amaryl] 1 mg PO DAILY 12/16/17 08/10/18 Multivitamins, Thera [Multivitamin 1 tab PO DAILY 12/16/17 08/10/18 (formulary)] Celecoxib [CeleBREX] 200 mg PO DAILY 08/04/18 08/10/18 Previous Rx's Medication Instructions Recorded Aspirin [Adult Low Dose Aspirin EC] 81 mg PO BID #60 tablet. 08/07/18 Hydrocodone/Acetaminophen [[place] 1 - 2 each PO Q6HR PRN #40 tab 08/07/18 5-325] Ibuprofen [Motrin] 600 mg PO Q6HR PRN #30 tab 08/10/18 Ondansetron Odt [Zofran Odt] 4 mg PO Q8HR PRN #20 tab 08/10/18 traMADol HCL [Ultram] 50 mg PO Q4HR PRN 3 Days #18 tab 08/10/18 Moxifloxacin [Vigamox 0.5%] 1 drop LEFT EYE Q1H #3 ml 05/14/21 Meclizine [Antivert] 25 mg PO Q8H PRN 7 Days #21 tab 04/24/22 Ondansetron Odt [Zofran Odt] 4 mg PO Q8HR PRN 7 Days #21 tab 04/24/22 Cyclobenzaprine [Flexeril] 5 mg PO TID #10 tablet 04/30/22 Allergies Allergy/AdvReac Type Severity Reaction Status Date / Time ciprofloxacin [From Cipro] Allergy Rash/Hives Verified 09/17/22 14:17 nitrofurantoin Allergy Unknown Verified 09/17/22 14:17 Penicillins Allergy Rash/Hives Verified 09/17/22 14:17 pineapple Allergy Rash/Hives Verified 09/17/22 14:17 latex AdvReac Rash/Hives Verified 09/17/22 14:17 Review of Systems ROS Statement: Those systems with pertinent positive or pertinent negative responses have been documented in the HPI. ROS Other: All systems not noted in ROS Statement are negative. Past Medical History Past Medical History: Diabetes Mellitus, Deep Vein Thrombosis (DVT), GERD/Reflux, Osteoarthritis (OA), Renal Disease, Skin Disorder Additional Past Medical History / Comment(s): DVT years ago in leg, decreased kidney function-sees kidney dr. 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, pinched nerve right side of neck History of Any Multi-Drug Resistant Organisms: Other MDRO Date of last positivie culture/infection: 2016 MDRO Source:: e-coli in knee Past Surgical History: Appendectomy, Back Surgery, Cholecystectomy, Hysterectomy, Joint Replacement Additional Past Surgical History / Comment(s): bilateral shoulder, bilateral carpal tunnel, left knee replaced x3, lower back fusion Past Anesthesia/Blood Transfusion Reactions: Motion Sickness, Postoperative Nausea & Vomiting (PONV) Past Psychological History: No Psychological Hx Reported Smoking Status: Never smoker Past Alcohol Use History: None Reported Past Drug Use History: None Reported - Past Family History Mother Family Medical History: Unable to Obtain General Exam Limitations: no limitations General appearance: alert, in no apparent distress Head exam: Present: atraumatic, normocephalic, normal inspection Eye exam: Present: normal appearance, PERRL, EOMI. Absent: scleral icterus, conjunctival injection, periorbital swelling ENT exam: Present: normal exam, mucous membranes moist Neck exam: Present: normal inspection. Absent: tenderness, meningismus, lymphadenopathy Respiratory exam: Present: normal lung sounds bilaterally. Absent: respiratory distress, wheezes, rales, rhonchi, stridor Cardiovascular Exam: Present: regular rate, normal rhythm, normal heart sounds. Absent: systolic murmur, diastolic murmur, rubs, gallop, clicks GI/Abdominal exam: Present: soft, normal bowel sounds. Absent: distended, tenderness, guarding, rebound, rigid Extremities exam: Present: normal inspection, full ROM, normal capillary refill. Absent: tenderness, pedal edema, joint swelling, calf tenderness Back exam: Present: normal inspection. Absent: tenderness, CVA tenderness (R), CVA tenderness (L), muscle spasm, paraspinal tenderness, vertebral tenderness Neurological exam: Present: alert, oriented X3 Psychiatric exam: Present: normal affect, normal mood Skin exam: Present: warm, dry, intact, normal color. Absent: rash Course Vital Signs 09/22/22 09/22/22 09/22/22 11:14 12:13 15:31 Temperature 98.6 F Pulse Rate 84 72 62 Respiratory 20 15 15 Rate Blood Pressure 134/71 134/74 O2 Sat by Pulse 100 Oximetry Medical Decision Making - Medical Decision Making Was pt. sent in by a medical professional or institution (, PA, PILE OPERATOR, urgent care, hospital, or prison...) When possible be specific @ -No Did you speak to anyone other than the patient for history (EMS, parent, family, police, friend...)? What history was obtained from this source @ -No Did you review nursing and triage notes (agree or disagree)? Why? @ -I reviewed and agree with nursing and triage notes Were old charts reviewed (outside hosp., previous admission, EMS record, old EKG, old radiological studies, urgent care reports/EKG's, prison records)? Report findings @ -No old charts were reviewed Differential Diagnosis (chest pain, altered mental status, abdominal pain women, abdominal pain men, vaginal bleeding, weakness, fever, dyspnea, syncope, headache, dizziness, GI bleed, back pain, seizure, CVA, palpatations, mental health, musculoskeletal)? @ -Differential Abdominal Pain Women: Appendicitis, Cholecystitis, diverticulosis, ischemic bowel, pancreatitis, hepatitis, UTI, gastroenteritis, AAA, incarcerated hernia, bowel obstruction, constipation, inflammatory bowel, hepatitis, peptic ulcer disease, splenic infarction, perforated viscus, vulvitis, ovarian torsion, PID, kidney stone, placenta abruption, this is not meant to be an all-inclusive list EKG interpreted by me (3pts min.). @ -None] X-rays interpreted by me (1pt min.). @ -None done CT interpreted by me (1pt min.). @ -CT abdomen and pelvis showed mild bilateral hydronephrosis with obstructing etiology, diverticulosis without diverticulitis U/S interpreted by me (1pt. min.). @ -None done What testing was considered but not performed or refused? (CT, X-rays, U/S, labs)? Why? @ -None What meds were considered but not given or refused? Why? @ -None Did you discuss the management of the patient with other professionals (professionals i.e. , PA, PILE OPERATOR, lab, RT, psych nurse, licensed social worker, fight manager, teacher, legal compliance officer, case resource manager)? Give summary @ -No Was smoking cessation discussed for >3mins.? @ -No Was critical care preformed (if so, how long)? @ -No Were there social determinants of health that impacted care today? How? (Homelessness, low income, unemployed, alcoholism, drug addiction, transportation, low edu. Level, literacy, decrease access to med. care, assisted, rehab)? @ -No Was there de-escalation of care discussed even if they declined (Discuss DNR or withdrawal of care, Hospice)? DNR status @ -No What co-morbidities impacted this encounter? (DM, HTN, Smoking, COPD, CAD, Cancer, CVA, ARF, Chemo, Hep., AIDS, mental health diagnosis, sleep apnea, morbid obesity)? @ -None Was patient admitted / discharged? Hospital course, mention meds given and route, prescriptions, significant lab abnormalities, going to OR and other pertinent info. @ -Discharged. Patient presented to emergency department with chief complaint of left-sided flank pain that has been going on for one month. She states that his been worsening. She states that she follows with orthopedics for her back and nephrology for her kidneys. She has appointments scheduled with them in the next week. Laboratory studies were obtained which showed a normal UA, normal WBC, hemoglobin.CMP showed sodium 134, potassium 5.5 which is hemolyzed, creatinine 1.47 which is around patient's baseline. CT abdomen and pelvis without contrast showed mild bilateral hydronephrosis without hydroureter with no obstructing etiology, diverticulosis without diverticulitis. Patient was advised of these findings and to keep her follow-up appointments with her orthopedic physician and eclectic doctor. Patient is agreeable with plan and stable at time of discharge. Case discussed with my attending, Dr. Tavares Undiagnosed new problem with uncertain prognosis? @ -No Drug Therapy requiring intensive monitoring for toxicity (Heparin, Nitro, Insulin, Cardizem)? @ -No Were any procedures done? @ -No Diagnosis/symptom? @ -Flank pain Acute, or Chronic, or Acute on Chronic? @ -Acute Uncomplicated (without systemic symptoms) or Complicated (systemic symptoms)? @ -Uncomplicated Side effects of treatment? @ -No Exacerbation, Progression, or Severe Exacerbation? @ -No Poses a threat to life or bodily function? How? (Chest pain, USA, CT, pneumonia, PE, COPD, DKA, ARF, appy, cholecystitis, CVA, Diverticulitis, Homicidal, Suicidal, threat to staff... and all critical care pts) @ -No - Lab Data Result diagrams: 09/22/22 12:13 09/22/22 12:13 Lab Results 09/22/22 09/22/22 09/22/22 Range/Units 12:13 12:13 14:14 WBC 5.9 (3.8-10.6) k/uL RBC 3.84 (3.80-5.40) m/uL Hgb 12.7 (11.4-16.0) gm/dL Hct 37.0 (34.0-46.0) % MCV 96.2 (80.0-100.0) fL MCH 33.0 (25.0-35.0) pg MCHC 34.3 (31.0-37.0) g/dL RDW 12.5 (11.5-15.5) % Plt Count 157 (150-450) k/uL MPV 8.0 Neutrophils % 61 % Lymphocytes % 29 % Monocytes % 7 % Eosinophils % 2 % Basophils % 0 % Neutrophils # 3.6 (1.3-7.7) k/uL Lymphocytes # 1.7 (1.0-4.8) k/uL Monocytes # 0.4 (0-1.0) k/uL Eosinophils # 0.1 (0-0.7) k/uL Basophils # 0.0 (0-0.2) k/uL Sodium 134 L (137-145) mmol/L Potassium 5.5 H (3.5-5.1) mmol/L Chloride 107 (98-107) mmol/L Carbon Dioxide 17 L (22-30) mmol/L Anion Gap 10 mmol/L BUN 29 H (7-17) mg/dL Creatinine 1.47 H (0.52-1.04) mg/dL Est GFR (CKD-EPI)AfAm 37 (>60 ml/min/1.73 sqM) Est GFR (CKD-EPI)NonAf 32 (>60 ml/min/1.73 sqM) Glucose 107 H (74-99) mg/dL Calcium 9.0 (8.4-10.2) mg/dL Total Bilirubin 0.6 (0.2-1.3) mg/dL AST 38 H (14-36) U/L ALT 22 (4-34) U/L Alkaline Phosphatase 62 (38-126) U/L Total Protein 6.9 (6.3-8.2) g/dL Albumin 4.2 (3.5-5.0) g/dL Amylase 63 (30-110) U/L Lipase 73 (23-300) U/L Urine Color Yellow Urine Appearance Clear (Clear) Urine pH 6.0 (5.0-8.0) Ur Specific [place] 1.013 (1.001-1.035) Urine Protein Negative (Negative) Urine Glucose (UA) Negative (Negative) Urine Ketones Negative (Negative) Urine Blood Negative (Negative) Urine Nitrite Negative (Negative) Urine Bilirubin Negative (Negative) Urine Urobilinogen <2.0 (<2.0) mg/dL Ur Leukocyte Esterase Negative (Negative) Disposition Clinical Impression: Left flank pain Disposition: HOME SELF-CARE Condition: Stable Additional Instructions: Please return to the emergency department for new or worsening symptoms. Is patient prescribed a controlled substance at d/c from ED?: No Referrals: Jacobo Jorgensen MD [Primary Care Provider] - 1-2 days Time of Disposition: 15:07
[2022-09-22 12:16] VITALS: RESP 15
[2022-09-22 12:45] LABS: Basophils % (A) 0 %; Eosinophils # (A) 0.1 k/uL (0-0.7); Eosinophils % (A) 2 %; HGB 12.7 gm/dL (11.4-16.0); Lymphocytes # (A) 1.7 k/uL (1.0-4.8); Lymphocytes % (A) 29 %; MCHC 34.3 g/dL (31.0-37.0); MCV 96.2 fL (80.0-100.0); Monocytes # (A) 0.4 k/uL (0-1.0); Monocytes % (A) 7 %; Neutrophils # (A) 3.6 k/uL (1.3-7.7); Neutrophils % (A) 61 %; Platelet Count 157 k/uL (150-450); RBC 3.84 m/uL (3.80-5.40); RDW 12.5 % (11.5-15.5); WBC 5.9 k/uL (3.8-10.6)
[2022-09-22 13:00] LABS: ALT 22 U/L (4-34); African American GFR (CKD) 37 (>60 ml/min/1.73 sqM); Albumin 4.2 g/dL (3.5-5.0); Amylase 63 U/L (30-110); Anion Gap 10 mmol/L; Blood Urea Nitrogen 29 mg/dL (7-17); Carbon Dioxide 17 mmol/L (22-30); Chloride 107 mmol/L (98-107); Glucose 107 mg/dL (74-99); Lipase 73 U/L (23-300); Non-African American GFR(CKD) 32 (>60 ml/min/1.73 sqM); Sodium 134 mmol/L (137-145); Total Bilirubin 0.6 mg/dL (0.2-1.3); Total Protein 6.9 g/dL (6.3-8.2)
[2022-09-22 13:06] LABS: AST 38 U/L (14-36); Alkaline Phosphatase 62 U/L (38-126); Potassium 5.5 mmol/L (3.5-5.1)
[2022-09-22 14:40] LABS: Appearance,Urine Clear (Clear); Bilirubin,Urine Negative (Negative); Blood,Urine Negative (Negative); Color,Urine Yellow; Glucose,Urine (UA) Negative (Negative); Ketones,Urine Negative (Negative); Leukocyte Esterase,Urine Negative (Negative); Nitrite,Urine Negative (Negative); Protein,Urine Negative (Negative); Specific Gravity,Urine 1.013 (1.001-1.035); Urobilinogen,Urine <2.0 mg/dL (<2.0)
--- NOTE | 2022-09-22 14:45 | CT ---
EXAMINATION TYPE: CT abdomen pelvis wo con DATE OF EXAM: 09/22/2022 COMPARISON: None INDICATION: Left sided abdominal pain DLP: 588.7 mGycm, Automated exposure control for dose reduction was used. CONTRAST: 0 mL of Isovue 300. Study performed without Oral Contrast TECHNIQUE: Axial images were obtained from above the diaphragm to the pubic rami in the axial plane a t 5 mm thick sections. Reconstructed images are reviewed on the computer in the coronal plane. FINDINGS: Limited CT sections are obtained the lung bases. There is a posterior calcification left lung base m easuring 0.5 cm. Lung bases otherwise appear clear.. CT ABDOMEN: Liver: Normal Spleen: Normal Pancreas: Normal Adrenal glands: The adrenal glands are normal. Gallbladder: Not identified. Kidneys: No masses are evident. No hydronephrosis is present. There is some prominence of the renal collecting systems. Renal pelves and ureters appear normal. No cysts are present. Delayed images we re obtained through the kidneys, which remain unremarkable. Aorta: Vascular calcification is within the aorta. Inferior vena cava: Normal. CT PELVIS: Free fluid is within the pelvis. Loops of bowel within the abdomen and pelvis are normal. Couple small diverticuli within the sigmoid colon. Study is without oral contrast limiting evaluation. Appendix: Normal as visualized. Urinary bladder: Normal. Genitourinary structures: Uterus and ovaries are not identified Osseous structures: No suspicious lytic or sclerotic lesions. Pedicle screws are present. IMPRESSIONS: 1. Mild bilateral hydronephrosis without hydroureter. Obstructing etiology not identified. 2. Diverticulosis without acute diverticulitis. 3. Moderate free fluid within the pelvis
[2022-09-22 15:32] VITALS: BP 134/74; PULSE 62
== END 2022-09-22 15:31 | disposition home or self-care (01) ==
LOC: EC 11:13
DX: R10.32 Left lower quadrant pain (principal); E11.9 Type 2 diabetes mellitus without complications; K21.9 Gastro-esophageal reflux disease without esophagitis; Z86.718 Personal history of other venous thrombosis and embolism; M19.90 Unspecified osteoarthritis, unspecified site; Z88.0 Allergy status to penicillin; Z88.1 Allergy status to other antibiotic agents; Z91.018 Allergy to other foods; Z91.040 Latex allergy status; Z88.8 Allergy status to other drugs, medicaments and biological substances; Z90.49 Acquired absence of other specified parts of digestive tract; Z79.899 Other long term (current) drug therapy; Z79.84 Long term (current) use of oral hypoglycemic drugs
CPT/HCPCS: 36415; 74176; 80053; 81003; 82150; 83690; 85025; 99284

== ENCOUNTER 2024-09-09 07:38 | Emergency (ER) | payer MEDICARE, BC ==
[2024-09-09 07:47] VITALS: TEMP 97.8
[2024-09-09 08:13] LABS: Basophils # (A) 0.04 10*3/uL (0.00-0.10); Basophils % (A) 0.7 %; Eosinophils # (A) 0.12 10*3/uL (0.04-0.35); Eosinophils % (A) 2.2 %; HCT 39.0 % (37.2-46.3); HGB 12.9 g/dL (12.0-15.0); Lymphocytes # (A) 1.52 10*3/uL (0.90-5.00); Lymphocytes % (A) 27.8 %; MCH 31.5 pg (27.0-32.0); MCHC 33.1 g/dL (32.0-37.0); MCV 95.4 fL (80.0-97.0); Monocytes # (A) 0.64 10*3/uL (0.20-1.00); Monocytes % (A) 11.7 %; Neutrophils # (A) 3.12 10*3/uL (1.80-7.70); Neutrophils % (A) 57.2 %; Platelet Count 167 10*3/uL (140-440); RBC 4.09 10*6/uL (4.10-5.20); RDW 12.6 % (11.5-14.5); WBC 5.46 10*3/uL (4.50-10.00)
--- NOTE | 2024-09-09 08:28 | ED ---
Chest Pain HPI - General Chief Complaint: Chest Pain Stated Complaint: Chest Pain Time Seen by Provider: 09/09/24 07:50 Source: patient, EMS Mode of arrival: EMS - History of Present Illness Initial Comments: 89-year-old female presents to the emergency department reporting chest pain. States that it awoke her from sleep around 5 AM. She describes it as a sharp shooting sensation in the left side of her chest. Pain only lasted for a few minutes before it resolved. She called her daughter who recommended that she call EMS. Patient has no history of cardiac disease. Does admit to history of DVT after traveling. She denies any shortness of breath. No fevers chills or cough. No calf pain or swelling. No other alleviating, precipitating or modifying factors - Related Data Home Medications Medication Instructions Recorded Confirmed Magnesium Chloride [Mag64] 64 mg PO BID@0900,209903/16/17 09/09/24 Simvastatin [Zocor] 20 mg PO HS@2100 03/16/17 09/09/24 Cholecalciferol [Vitamin D3 (125 125 mcg PO DAILY@89909/09/24 09/09/24 Mcg = 5000 Iu)] Dapagliflozin Propanediol [Farxiga] 5 mg PO DIRECTED 09/09/24 09/09/24 Glimepiride [Amaryl] 1 mg PO DAILY@89909/09/24 09/09/24 Latanoprost [Latanoprost 0.005%] 1 drop BOTH EYES HS 09/09/24 09/09/24 Minocycline HCl [Minocin] 100 mg PO HS@1800 09/09/24 09/09/24 Multivit-Minerals/Folic Acid 0.4 mg PO DAILY@89909/09/24 09/09/24 [One-A-Day Women's 50 Plus Tab] Omeprazole 20 mg PO DAILY@89909/09/24 09/09/24 calcium polycarbophiL [Fiber-Lax] 1,250 mg PO DAILY@89909/09/24 09/09/24 diphenhydrAMINE [Benadryl] 50 mg PO HS@2100 09/09/24 09/09/24 hydroCHLOROthiazide [Hydrodiuril] 25 mg PO DAILY@89909/09/24 09/09/24 lisinopriL [Zestril] 2.5 mg PO DAILY@0900 09/09/24 09/09/24 traMADol HCL [Ultram] 50 mg PO QID PRN 09/09/24 09/09/24 Allergies Allergy/AdvReac Type Severity Reaction Status Date / Time ciprofloxacin [From Cipro] Allergy Rash/Hives Verified 09/09/24 20:59 latex Allergy Rash/Hives Verified 09/09/24 20:59 nitrofurantoin Allergy Unknown Verified 09/09/24 20:59 Penicillins Allergy Rash/Hives Verified 09/09/24 20:59 pineapple Allergy Rash/Hives Verified 09/09/24 20:59 Review of Systems ROS Statement: Those systems with pertinent positive or pertinent negative responses have been documented in the HPI. ROS Other: All systems not noted in ROS Statement are negative. Past Medical History Past Medical History: Diabetes Mellitus, Deep Vein Thrombosis (DVT), GERD/Reflux, Osteoarthritis (OA), Renal Disease, Skin Disorder Additional Past Medical History / Comment(s): DVT years ago in leg, decreased kidney function-sees kidney dr. 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, pinched nerve right side of neck History of Any Multi-Drug Resistant Organisms: Other MDRO Date of last positivie culture/infection: 2016 MDRO Source:: e-coli in knee Past Surgical History: Appendectomy, Back Surgery, Cholecystectomy, Hysterectomy, Joint Replacement Additional Past Surgical History / Comment(s): bilateral shoulder, bilateral carpal tunnel, left knee replaced x3, lower back fusion Past Anesthesia/Blood Transfusion Reactions: Motion Sickness, Postoperative Nausea & Vomiting (PONV) Past Psychological History: No Psychological Hx Reported Smoking Status: Never smoker Past Alcohol Use History: None Reported Past Drug Use History: None Reported - Past Family History Mother Family Medical History: Unable to Obtain General Exam General appearance: alert, in no apparent distress Head exam: Present: atraumatic, normocephalic, normal inspection Eye exam: Present: normal appearance, PERRL, EOMI. Absent: scleral icterus, conjunctival injection, periorbital swelling ENT exam: Present: normal exam, mucous membranes moist Neck exam: Present: normal inspection. Absent: tenderness, meningismus, lymphadenopathy Respiratory exam: Present: normal lung sounds bilaterally. Absent: respiratory distress, wheezes, rales, rhonchi, stridor Cardiovascular Exam: Present: regular rate, normal rhythm, normal heart sounds. Absent: systolic murmur, diastolic murmur, rubs, gallop, clicks GI/Abdominal exam: Present: soft, normal bowel sounds. Absent: distended, tenderness, guarding, rebound, rigid Extremities exam: Present: normal inspection, full ROM, normal capillary refill. Absent: tenderness, pedal edema, joint swelling, calf tenderness Back exam: Present: normal inspection Neurological exam: Present: alert, oriented X3, CN II-XII intact Psychiatric exam: Present: normal affect, normal mood Skin exam: Present: warm, dry, intact, normal color. Absent: rash Course Vital Signs 09/09/24 09/09/24 09/09/24 07:44 09:00 11:57 Temperature 97.8 F Pulse Rate 67 66 74 Respiratory 18 16 18 Rate Blood Pressure 133/74 115/72 126/84 O2 Sat by Pulse 97 98 100 Oximetry Chest Pain MDM - MDM Was pt. sent in by a medical professional or institution (, PA, ANIMAL NURSERY WORKER, urgent care, hospital, or fpc...) When possible be specific @ -No Did you speak to anyone other than the patient for history (EMS, parent, family, police, friend...)? What history was obtained from this source @ -I spoke with EMS for history Did you review nursing and triage notes (agree or disagree)? Why? @ -I reviewed and agree with nursing and triage notes Were old charts reviewed (outside hosp., previous admission, EMS record, old EKG, old radiological studies, urgent care reports/EKG's, fpc records)? Report findings @ -No old charts were reviewed Differential Diagnosis (chest pain, altered mental status, abdominal pain women, abdominal pain men, vaginal bleeding, weakness, fever, dyspnea, syncope, headache, dizziness, GI bleed, back pain, seizure, CVA, palpatations, mental health, musculoskeletal)? @ -Differential Chest Pain: Stable Angina, Unstable Angina, STEMI, NSTEMI Aortic Dissection, Pneumothorax, Musculoskeletal, Esophageal Spasm GERD, Cholecystitis, Pancreatitis, Zoster, this is not meant to be an all-inclusive list. EKG interpreted by me (3pts min.). @ -Yes which demonstrates sinus rhythm with a rate of 69. WA interval 169. QRS 138. QTc of 410. No acute ST segment elevations or depressions. Right bundle branch block X-rays interpreted by me (1pt min.). @ -Yes which demonstrates no acute process CT interpreted by me (1pt min.). @ -None done U/S interpreted by me (1pt. min.). @ -None done What testing was considered but not performed or refused? (CT, X-rays, U/S, labs)? Why? @ -Echo however patient refused to be admitted What meds were considered but not given or refused? Why? @ -None Did you discuss the management of the patient with other professionals (professionals i.e. Dr., PA, ANIMAL NURSERY WORKER, lab, RT, psych nurse, social media content manager, field sales manager, teacher, disability hearing officer, pillowcase turner)? Give summary @ -No Was smoking cessation discussed for >3mins.? @ -No Was critical care preformed (if so, how long)? @ -No Were there social determinants of health that impacted care today? How? (Homelessness, low income, unemployed, alcoholism, drug addiction, transportation, low edu. Level, literacy, decrease access to med. care, skilled nursing, rehab)? @ -No Was there de-escalation of care discussed even if they declined (Discuss DNR or withdrawal of care, Hospice)? DNR status @ -No What co-morbidities impacted this encounter? (DM, HTN, Smoking, COPD, CAD, Cancer, CVA, ARF, Chemo, Hep., AIDS, mental health diagnosis, sleep apnea, morbid obesity)? @ -None Was patient admitted / discharged? Hospital course, mention meds given and route, prescriptions, significant lab abnormalities, going to OR and other pertinent info. @ -Upon arrival patient seen and evaluated in bed 15. Thorough history and physical exam was performed. IV access was established. Laboratory studies are conducted. Twelve-lead EKG was performed. Laboratory study results are discussed with the patient including a negative troponin. I did recommend admission for serial troponins and echo however patient wants to go home. She has no cardiac history. Pain is transient and has not returned. She was agreeable to a second troponin which is also negative. At this time the patient be discharged home. Instructed to follow-up with her primary care doctor within 2 to 4 days and return for any new or worsening symptoms. Patient was agreement with this and was discharged in stable condition Undiagnosed new problem with uncertain prognosis? @ -No Drug Therapy requiring intensive monitoring for toxicity (Heparin, Nitro, Insulin, Cardizem)? @ -No Were any procedures done? @ -No Diagnosis/symptom? @ -Acute left-sided chest pain Acute, or Chronic, or Acute on Chronic? @ -Acute Uncomplicated (without systemic symptoms) or Complicated (systemic symptoms)? @ -Complicated Side effects of treatment? @ -No Exacerbation, Progression, or Severe Exacerbation? @ -No Poses a threat to life or bodily function? How? (Chest pain, [place], DC, pneumonia, PE, COPD, DKA, ARF, appy, cholecystitis, CVA, Diverticulitis, Homicidal, Suicidal, threat to staff... and all critical care pts) @ -No Disposition Clinical Impression: Atypical chest pain Disposition: HOME SELF-CARE Condition: Stable Instructions (If sedation given, give patient instructions): Chest Pain (ED) Additional Instructions: All of your lab testing was normal. Please follow-up with your doctor in 2-4 days and return for any new or worsening symptoms Is patient prescribed a controlled substance at d/c from ED?: No Referrals: Jacobo Jorgensen MD [Primary Care Provider] - 1-2 days Time of Disposition: 11:34
[2024-09-09 08:29] LABS: ALT 15 U/L (4-34); AST 33 U/L (14-36); African American GFR (CKD) 41 (>60 ml/min/1.73 sqM); Albumin 4.1 g/dL (3.5-5.0); Alkaline Phosphatase 62 U/L (38-126); Anion Gap 9 mmol/L; Blood Urea Nitrogen 28 mg/dL (7-17); Calcium 9.6 mg/dL (8.4-10.2); Carbon Dioxide 24 mmol/L (22-30); Chloride 105 mmol/L (98-107); Glucose 90 mg/dL (74-99); Lipase 84 U/L (23-300); Magnesium 1.6 mg/dL (1.6-2.3); Non-African American GFR(CKD) 36 (>60 ml/min/1.73 sqM); Potassium 4.2 mmol/L (3.5-5.1); Sodium 138 mmol/L (137-145); Total Protein 6.2 g/dL (6.3-8.2)
[2024-09-09 08:38] LABS: NT-Pro-B-Type Natriuretic Pept 130 pg/mL
[2024-09-09 08:39] LABS: INR 1.1 (<1.2); Partial Thromboplastin Time 25.7 sec (22.0-30.0); Prothrombin Time 11.6 sec (10.0-12.5)
--- NOTE | 2024-09-09 08:39 | XR ---
EXAMINATION TYPE: XR chest 2V DATE OF EXAM: 09/09/2024 8:34 AM COMPARISON: 04/30/2022 CLINICAL INDICATION: Female, 89 years old with history of Chest Pain, , TECHNIQUE: AP and lateral views FINDINGS: Reverse right total shoulder arthroplasty partially visualized. There are low lung volumes with crowd ed vascular markings. Hazy densities relating to portable technique and large body habitus. Asymmetri c elevation right hemidiaphragm is unchanged. Some strandy atelectasis in the lower lungs. No consoli dation or pleural effusion. Heart upper limits of normal in size. IMPRESSION: Hypoventilatory changes with some mild strandy basilar atelectasis. No definite acute process. [facility], , 09/09/2024 8:36 AM
[2024-09-09 11:58] VITALS: BP 126/84; PULSE 74; RESP 18
== END 2024-09-09 11:58 | disposition home or self-care (01) ==
LOC: EC 07:38
DX: R07.89 Other chest pain (principal); Z88.0 Allergy status to penicillin; Z91.018 Allergy to other foods; Z88.1 Allergy status to other antibiotic agents; Z91.040 Latex allergy status; Z88.8 Allergy status to other drugs, medicaments and biological substances
CPT/HCPCS: 36415; 71046; 80053; 83690; 83735; 83880; 84484; 85025; 85610; 85730; 93005; 99285